=== PATIENT | male | born 1960 | race Caucasian/White ===

== ENCOUNTER → 2018-08-18 | Outpatient (CLI) | payer SELFPAY ==
[2018-05-02 06:34] VITALS: BMI 34.1
--- NOTE | 2018-08-18 06:58 | RAD_ITS ---
STUDY: X-RAY CHEST REASON FOR EXAM: Male, 57 years old. Follow-up after treatment for melanoma. TECHNIQUE: PA and lateral views of the chest. COMPARISON: CT of the chest dated February 03, 2015. FINDINGS: The lungs are clear and expanded. There is no demonstrated pleural abnormality. Normal size heart. Normal mediastinum and trinity. Normal visualized pulmonary arteries. Normal visualized aortic arch and descending thoracic aorta. Normal visualized thoracic spine. Normal visualized ribs, clavicles, and shoulders. There is no demonstrated abnormality of the visualized soft tissue structures of the upper abdomen. RAD/Chest PA and Lateral IMPRESSION: No radiographic evidence of acute cardiopulmonary disease. Electronically Signed: Sheila Polanco MD at 17:11 EDT , Service support ,
== END | disposition home or self-care (01) ==
PROVIDERS: Family Provider Family Medicine; PCP Family Medicine; Referring Provider Internal Medicine Medical Oncology; Visit Provider Internal Medicine Medical Oncology
DX: Z85.820 Personal history of malignant melanoma of skin (principal)
CPT/HCPCS: 71046

== ENCOUNTER → 2019-08-17 07:52 | Outpatient (CLI) | payer BC, SELFPAY ==
[2018-10-16 17:35] VITALS: BMI 33.2
--- NOTE | 2019-08-17 07:58 | RAD_ITS ---
STUDY: X-RAY CHEST REASON FOR EXAM: Male, 58 years old. 1 year followup melanoma TECHNIQUE: PA and lateral views of the chest. COMPARISON: Comparison is made with prior examination dated August 18, 2018. FINDINGS: The lungs are clear and expanded. There is no demonstrated pleural abnormality. Normal size heart. Normal mediastinum and trinity. Normal visualized pulmonary arteries. Normal visualized aortic arch and descending thoracic aorta. Normal visualized thoracic spine. Normal visualized ribs, clavicles, and shoulders. There is no demonstrated abnormality of the visualized soft tissue structures of the upper abdomen. RAD/Chest PA and Lateral IMPRESSION: Normal x-ray examination of the chest. Electronically Signed: Yeyo Koehler, at 8:39 EDT , Service support ,
[2019-08-17 08:49] LABS: Absolute Lymphocyte Count 2.13 X10^3/uL (0.83-4.51); Absolute Neutrophil Count 2.3 X10^3/uL (2.0-7.7); Basophil# 0.05 X10^3/uL; Eosinophil# 0.08 X10^3/uL; Eosinophils% 1.6 % (0-5); Hematocrit 45.4 % (40-54); Hemoglobin 14.5 g/dL (13.0-16.5); Lymphocyte # 2.13 X10^3/ul (4.0); Mean Corp Hgb Conc 31.9 g/dL (32-36); Mean Corpuscular Hgb 30.5 pg (27.0-32.0); Mean Corpuscular Volume 95.4 fL (80-94); Mean Platelet Vol. 9.5 fl (6.2-12.0); Monocyte# 0.51 X10^3/uL; Monocyte% 10.1 % (0-10); NRBC Flagged by Analyzer 0 % (0-5); Neutrophil # 2.29 X10^3/uL (2.7-7.7); Neutrophil % 45.1 % (47-70); Platelet Count 226 K/mm3 (150-450); RBC Distribution Width SD 42.6 fl (35.1-43.9); Red Blood Count 4.76 M/mm3 (4.6-6.2); White Blood Count 5.1 K/mm3 (4.4-11.0)
[2019-08-17 09:06] LABS: ALB/GLOB Ratio 1.1 RATIO (0.9-2.4); AST(SGOT) 26 U/L (15-37); Alanine Aminotransfer ALT/SGPT 46 U/L (16-61); Albumin, Serum 3.8 g/dL (3.2-5.0); Alkaline Phosphatase 87 U/L (45-117); Anion Gap 3 (5-15); BUN 20 mg/dL (7-18); BUN/Creat Ratio 17.5 RATIO (10-20); Calcium,Total 8.7 mg/dL (8.5-10.1); Chloride 110 mmol/L (98-107); Creatinine, Serum 1.14 mg/dL (0.70-1.30); EST Glomerular Filtration Rate 70 mL/min (>60); Est Glom Filt Rate - Afr Amer 85 mL/min (>60); Globulin 3.4 g/dL (2.2-4.2); Glucose 104 mg/dL (74-106); LDH 180 U/L (87-241); Potassium 4.4 mmol/L (3.5-5.1); Protein, Total 7.2 g/dL (6.4-8.2); Sodium Level 141 mmol/L (136-145)
[2019-08-17 16:00] LABS: Xtra Tube EP Lab EXTRA TUBE
== END ==
PROVIDERS: PCP Family Medicine; Referring Provider Internal Medicine Medical Oncology; Visit Provider Internal Medicine Medical Oncology
DX: Z85.820 Personal history of malignant melanoma of skin (principal)
CPT/HCPCS: 36415; 71046; 80053; 83615; 85025

== ENCOUNTER → 2020-08-17 09:00 | Outpatient (CLI) | payer BC, SELFPAY ==
[2020-08-17 08:16] VITALS: BMI 33.2
--- NOTE | 2020-08-17 09:08 | RAD_ITS ---
STUDY: X-RAY CHEST REASON FOR EXAM: Male, 59 years old. HX OF MELANOMA TECHNIQUE: PA and lateral views of the chest. COMPARISON: Comparison is made with prior study dated 08/17/2019. FINDINGS: There is a 8.3 mm nodular density in the left lung base. I think this is a nipple shadow. A repeat examination with nipple markers recommended. Hyperinflation. There is no demonstrated pleural abnormality. Normal size heart. Normal mediastinum and trinity. Normal visualized pulmonary arteries. Normal visualized aortic arch and descending thoracic aorta. Normal visualized thoracic spine. Normal visualized ribs, clavicles, and shoulders. There is no demonstrated abnormality of the visualized soft tissue structures of the upper abdomen. RAD/Chest PA and Lateral IMPRESSION: There is an 8.3 mm nodular density in the left lung base most likely representing a nipple shadow. A repeat examination with nipple markers recommended. Electronically Signed: Yeyo Koehler MD at 14:55 EDT , Service support ,
== END ==
PROVIDERS: PCP Family Medicine; Referring Provider Internal Medicine Medical Oncology; Visit Provider Internal Medicine Medical Oncology
DX: Z85.820 Personal history of malignant melanoma of skin (principal)
CPT/HCPCS: 71046

== ENCOUNTER → 2020-08-26 06:44 | Outpatient (CLI) | payer BC, SELFPAY ==
[2020-08-25 12:49] VITALS: BMI 32.0
--- NOTE | 2020-08-26 06:46 | CT_ITS ---
STUDY: CT CHEST WITH CONTRAST REASON FOR EXAM: Male, 59 years old. Hx Melanoma; CXR shows left lung nodule RADIATION DOSAGE (If Supplied By Facility): CTDIvol = ( 14.15 ) mGy, DLP = ( 558.04 ) mGycm TECHNIQUE: Transaxial imaging was performed following intravenous administration of IV 100mL Isovue-370. Multiplanar coronal and sagittal images were reformatted. Individualized dose optimization techniques were used for this CT. COMPARISON: Comparison is made with prior examination 02/03/2015. FINDINGS: There is a new noncalcified 1 cm nodule in the anterior lateral aspect of the lingular segment of the left upper lobe. There is no demonstrated pleural abnormality. There are calcifications of the coronary arteries. Normal mediastinum. Normal hilar regions. Normal enhanced pulmonary arteries. Normal aorta arch and descending thoracic aorta. There are mild degenerative changes of the thoracic spine. There is a 2.3 cm x 1.8 cm cyst in the anterior aspect of the left lobe of the liver. A similar-appearing cyst measuring 1 cm is seen in segment 4 of the liver. There is also evidence of a 2.2 cm cyst in the posterior medial aspect of the left kidney. CT/Chest WITH Contrast IMPRESSION: New 1 cm noncalcified nodule in the anterior lateral aspect of the lingular segment of the left upper lobe. Stable hepatic and renal cysts. Electronically Signed: Yeyo Koehler MD at 9:25 EDT , Service support ,
== END ==
PROVIDERS: PCP Family Medicine; Referring Provider Internal Medicine Medical Oncology; Visit Provider Internal Medicine Medical Oncology
DX: R93.89 Abnormal findings on diagnostic imaging of other specified body structures (principal); R91.1 Solitary pulmonary nodule; Z85.820 Personal history of malignant melanoma of skin
CPT/HCPCS: 71260; Q9967

== ENCOUNTER → 2020-12-05 17:11 | Outpatient (CLI) | payer BC, SELFPAY ==
[2020-09-08 15:42] VITALS: BMI 31.6
[2020-10-06 16:34] VITALS: BMI 31.6
--- NOTE | 2020-12-05 17:21 | CT_ITS ---
STUDY: CT CHEST WITH CONTRAST REASON FOR EXAM: Male, 60 years old. LUNG NODULE RADIATION DOSAGE (If Supplied By Facility): CTDIvol = ( 15.35 ) mGy, DLP = ( 479.61 ) mGycm TECHNIQUE: Transaxial imaging was performed following intravenous administration of IV 100mL Isovue-300. Individualized dose optimization techniques were used for this CT. COMPARISON: 09/06/2020 PET/CT FINDINGS: 1 cm anterior left upper lobe subpleural nodule. The lungs are otherwise normal. There is no demonstrated pleural abnormality. Normal heart and pericardium. Normal mediastinum. 1.1 cm short axis left hilar lymph node. Normal enhanced pulmonary arteries. Normal aorta arch and descending thoracic aorta. Thoracic vertebral alignment is maintained. There is no demonstrated abnormality of the visualized upper abdomen. CT/Chest WITH Contrast IMPRESSION: 1 cm left upper lobe subpleural nodule is unchanged compared to 09/06/2020 PET/CT. 1.1 cm left hilar lymph node is difficult compare in size to 09/06/[address], but probably corresponds to mildly avid focus in the left pulmonary hilum. Electronically Signed: Marbin Shaffer MD at 8:13 EDT Tel , Service support ,
== END ==
PROVIDERS: Referring Provider Internal Medicine Medical Oncology; Visit Provider Internal Medicine Medical Oncology
DX: R91.1 Solitary pulmonary nodule (principal); Z85.820 Personal history of malignant melanoma of skin
CPT/HCPCS: 71260; Q9967

== ENCOUNTER 2021-05-31 17:35 | Outpatient (CLI) | payer OTHER, SELFPAY ==
--- NOTE | 2021-05-31 17:36 | CT_ITS ---
EXAM: CT CHEST WITH INTRAVENOUS CONTRAST : 1960 CLINICAL INDICATION: MONITOR-LUNG NODULE TECHNIQUE: Helically acquired images were obtained of the chest with intravenous contrast. This CT exam was performed using one or more of the following dose reduction techniques: automated exposure control, adjustment of the mA and/or kV according to patient size, and/or use of iterative reconstruction technique. This report was created using [employer] report generation technology. CONTRAST: IV 100mL Isovue-370 COMPARISON: December 05, 2020 FINDINGS: LUNGS AND PLEURAL SPACES: Stable 10 mm left upper lobe pulmonary nodule. Mild diffuse pulmonary emphysema. No pleural effusion or thickening. No pneumothorax. HEART: Unremarkable. Heart size is normal. No pericardial effusion. No significant coronary artery calcifications. MEDIASTINUM: Stable 14 mm left hilar lymph node. Esophagus is unremarkable. No hiatal hernia. THYROID: Unremarkable. No thyroid lesions. BONES/JOINTS: Unremarkable. No suspicious lytic or blastic abnormality. VASCULATURE: Unremarkable. Thoracic aorta is non-dilated. No thoracic aortic dissection. No obvious central pulmonary embolism although this study was not performed with the pulmonary embolism protocol. LIVER: Stable cystic lesions within the liver and upper pole left kidney. CT/Chest WITH Contrast IMPRESSION: 1. Stable 10 mm left upper lobe pulmonary nodule. 2. Mild diffuse pulmonary emphysema. 3. Stable 14 mm left hilar lymph node. Individualized dose optimization techniques were used for this CT. at 1005 Reported and signed by: Sudhakar Altman MD Electronically Signed: Sudhakar Altman MD at 10:04 [facility] ,
== END 2021-05-31 23:59 | disposition home or self-care (01) ==
LOC: CT 17:36
PROVIDERS: Visit Provider Internal Medicine Medical Oncology
DX: R91.1 Solitary pulmonary nodule (principal); Z85.820 Personal history of malignant melanoma of skin
CPT/HCPCS: 71260; Q9967

== ENCOUNTER 2021-06-06 09:55 | Outpatient (CLI) | payer OTHER, SELFPAY ==
--- NOTE | 2021-06-06 12:47 | PFTCOMP ---
COMPLETE PULMONARY FUNCTION TEST INTERPRETATION Brief HPI: Patient is a 60 year old male, currently under the care of myself, who presents to [facility] for complete pulmonary function tests secondary to diagnosis of lung nodule. Respiratory therapist reports good effort and reproducible results. Interpretation: Forced expiration spirometry shows a mild large airways obstructive ventilatory defect with an FEV1 of 84% predicted. There is a significant bronchodilator response in FEV1 by strict ATS criteria. Spirograms are of good quality and plateau slowly, indicating slowly emptying areas of the lungs. The respiratory flow volume loop shows decreased expiratory flow rates at high lung volumes consistent with small airways obstruction. Lung volumes by body plethysmography show a normal total lung capacity at 6.13 L, 103% predicted. All other lung volumes are within normal limits. Diffusion capacity by carbon monoxide is normal at 75% predicted. The airway resistance is normal. No previous pulmonary function tests were available for review. Impression: Fully reversible mild large airways obstructive ventilatory defect
== END 2021-06-06 23:59 | disposition home or self-care (01) ==
PROVIDERS: Referring Provider Internal Medicine Critical Care Medicine; Visit Provider Internal Medicine Critical Care Medicine
DX: R91.1 Solitary pulmonary nodule (principal)
CPT/HCPCS: 94060; 94726; 94729

== ENCOUNTER → 2021-12-20 | Outpatient (CLI) | payer OTHER, SELFPAY ==
--- NOTE | 2021-12-20 11:52 | CT_ITS ---
STUDY: CT Chest W/ Contrast Injection 12/20/2021 6:10 PM REASON FOR EXAM: Male, 61 years old. LUNG NODULE/HX OF MELANOMA Individualized dose optimization techniques were used for this CT. Radiation: CTDIvol = [13.70] mGy, DLP = [575.74] mGy-cm TECHNIQUE: Transaxial imaging was performed IV 100mL Isovue-300 IV contrast material. Comparison: May 31 2021 5:43pm FINDINGS: There are degenerative changes of the shoulders. There is no pneumothorax. There is no demonstrated pleural abnormality. 8mm nodule of the left upper lobe. This has a central area of calcification and peripheral soft tissue. This is consistent for hamartoma. No follow up required. There are calcifications of the coronary arteries. Normal mediastinum. Stable 14 mm left hilar lymph node. Normal pulmonary arteries. There is atherosclerotic calcification of the aortic arch with tortuosity and elongation of the aortic arch and descending thoracic aorta. There are multi-level degenerative changes of the thoracic spine. Stable hypodensities of the liver. There is hypodensities of the left kidney. These are consistent for cysts. No follow up required. CT/Chest WITH Contrast IMPRESSION: 8mm nodule of the left upper lobe. This has a central area of calcification and peripheral soft tissue. This is consistent for hamartoma. No follow up required. Electronically Signed: Mario Alberto Solitario MD at 18:13 EDT ,
== END | disposition home or self-care (01) ==
LOC: CT 17:43
PROVIDERS: Visit Provider Internal Medicine Medical Oncology
DX: R91.1 Solitary pulmonary nodule (principal); Z85.820 Personal history of malignant melanoma of skin
CPT/HCPCS: 71260; Q9967

== ENCOUNTER → 2022-06-26 | Outpatient (CLI) | payer OTHER, SELFPAY ==
[2022-06-26 07:42] LABS: Cholesterol 248 mg/dL (200); High Density Lipoprotein 48 mg/dL; Thyroid Stim Hormone (TSH) 2.77 uIU/mL (0.358-3.74); Triglycerides 88 mg/dL; Very Low Density Lipoprotein 18 mg/dL (5-40)
[2022-06-26 08:48] LABS: Vitamin D,25 Hydroxy 19.3 ng/mL
--- NOTE | 2022-06-26 09:24 | STRESSREP ---
Stress Test Report Date: Procedure: Exercise tolerance test/imaging study Indications: Chest pain/chest tightness Consent: Per the patient Procedure: The patient exercised on a Mitchell protocol for 8 minutes and 30 seconds completing Stage II and 2 minutes and 30 seconds of Stage III achieving a peak heart rate of 153 bpm (95% predicted maximal heart rate) with resting blood pressure of 120/82 mmHg and a peak blood pressure 180/82 mmHg and a peak MET capacity of 10 METs. The baseline ECG demonstrated sinus bradycardia. The peak exercise ECG demonstrated somatic/motion artifact with no obvious ECG changes. There were no cardiac dysrhythmias pretest, during exercise, or recovery. The functional capacity was considered good. There was no complaint of chest discomfort during exercise or recovery. The examination was discontinued secondary to dyspnea and leg fatigue. Impression: 1. Technically adequate (percent predicted maximal heart rate greater than 85%) exercise tolerance test 2. Peak exercise ECG with somatic/motion artifact with no obvious ECG changes 3. There were no cardiac dysrhythmias pretest, during exercise, or recovery 4. Nuclear images pending Myocardial perfusion imaging study: Technique: The patient was injected with 11.6 mCi of technetium 99m Cardiolite and subsequently rest SPECT Cardiolite nuclear imaging was obtained in the horizontal long, vertical long, and short axis views. The patient exercised on a Mitchell protocol for 8 minutes and 30 seconds completing Stage II and 2 minutes and 30 seconds of Stage III achieving a peak heart rate of 153 bpm (95% predicted maximal heart rate) with resting blood pressure of 120/82 mmHg and a peak blood pressure 180/82 mmHg and a peak MET capacity of 10 METs. The patient was injected with 36.0 mCi of technetium 99m Cardiolite and subsequently stress SPECT Cardiolite nuclear imaging was obtained in the horizontal long, vertical long, and short axis views. A gated Cardiolite study at peak stress was obtained. Interpretation: Rest and stress SPECT Cardiolite nuclear imaging status post realignment, normalization, and attenuation correction, demonstrates the appearance of relative uniform tracer uptake and myocardial perfusion appearing within normal limits. There is end systolic thickening and brightening. The gated Cardiolite study demonstrates myocardial thickening and inward wall motion. The reported LVEF is 66%. Impression: 1. Rest and stress SPECT Cardiolite nuclear imaging demonstrate relative uniform tracer uptake and myocardial perfusion appearing within normal limits. 2. The gated Cardiolite study reports an LVEF of 66%. This note was generated with [employer] software. It may contain incorrect words, spelling, and punctuation that were not noted in checking the note before signing.
== END | disposition home or self-care (01) ==
PROVIDERS: PCP Internal Medicine; Referring Provider Internal Medicine; Visit Provider Internal Medicine
DX: I10 Essential (primary) hypertension (principal); J45.909 Unspecified asthma, uncomplicated; R07.89 Other chest pain; Z72.0 Tobacco use; Z87.19 Personal history of other diseases of the digestive system
CPT/HCPCS: 36415; 78452; 80061; 82306; 84153; 84443; 93017; A9500; A4216; G0103

== ENCOUNTER → 2022-10-24 | Outpatient (CLI) | payer OTHER, SELFPAY ==
--- NOTE | 2022-10-24 11:12 | VDLE_ITS ---
Reason For Study: Swelling RIGHT LEFT GSV is normal. GSV is normal. CFV is compressible, spontaneous, phasic, CFV is compressible, spontaneous, phasic, competent and demonstrates normal competent, and demonstrates normal augmentation. augmentation. FV is compressible, spontaneous, phasic, FV is compressible, spontaneous, phasic, competent and demonstrates normal competent and demonstrates normal augmentation. augmentation. POP V is compressible, spontaneous, phasic, POP V is compressible, spontaneous, phasic, competent and demonstrates normal competent and demonstrates normal augmentation. augmentation. T/P Trunk is compressible. T/P Trunk is compressible. PTV is compressible. PTV is compressible. RT PerV is compressible. LT PerV is compressible. Procedure This is a venous duplex using B-mode, color flow and spectral Doppler. Exam performed in department. A preliminary report was called and/or faxed to Dr. Hogan. VL/Venous Duplex US - [place] Extrem Interpretation Summary No evidence for acute deep venous thrombosis bilateral lower extremities with p atent and compressible bilateral great saphenous veins. Ordering Physician: Jesus Hogan Referring Physician: Amena Friedman Performed By: Pamela Bowles, CASANDRA, RVT
== END | disposition home or self-care (01) ==
LOC: CVS 11:12
PROVIDERS: PCP Internal Medicine; Referring Provider Internal Medicine Medical Oncology; Visit Provider Internal Medicine Medical Oncology
DX: M79.89 Other specified soft tissue disorders (principal)
CPT/HCPCS: 93970

== ENCOUNTER → 2024-01-10 | Outpatient (CLI) | payer OTHER, SELFPAY ==
--- NOTE | 2024-01-10 17:36 | CT_ITS ---
HISTORY: smoker. TECHNIQUE: Helically acquired images were obtained of the chest without contrast. A radiation dose optimization technique was used for this scan. 848 images. COMPARISON: 12/20/2021. 09/06/2020. FINDINGS: LARGE AIRWAYS: Patent. LUNGS: Mild emphysema. 10 mm part groundglass nodule with a new 4 mm solid component in the left apex, previously 7 mm and nonsolid. 3 mm left upper lobe nodule medially, stable. 8 mm nodule with central calcification again seen in the left upper lobe, likely hamartoma. PLEURA: No pneumothorax or significant pleural effusion. HEART/PERICARDIUM: Heart within normal limits in size with coronary artery calcification. No pericardial effusion. VESSELS: Thoracic aorta nondilated. Mild atherosclerosis. MEDIASTINUM/GUY: Left hilar lymphadenopathy less well-visualized on noncontrast examination. UPPER ABDOMEN: Small hepatic cysts again seen. BONES: Mild degenerative change. CT/Low Dose CT Lung Screening IMPRESSION: Mildly increased size of left upper lobe 10 mm part solid nodule with a new 4 mm solid component. Lung-RADS category 4B: Very suspicious. Recommend diagnostic chest CT with and without contrast, PET/CT may be considered, tissue sampling, and/or referral for further clinical evaluation. Electronically Signed: Allyssa Zohu MD at 9:07 EDT Reading Location ID and State: [facility] / [place] Tel , Service support ,
== END | disposition home or self-care (01) ==
LOC: CT 17:34
PROVIDERS: PCP Internal Medicine; Referring Provider Nurse Practitioner Acute Care; Visit Provider Nurse Practitioner Acute Care
DX: R91.8 Other nonspecific abnormal finding of lung field (principal); F17.200 Nicotine dependence, unspecified, uncomplicated
CPT/HCPCS: 71271

== ENCOUNTER → 2024-02-04 | Outpatient (CLI) | payer OTHER, SELFPAY ==
--- NOTE | 2024-02-04 08:00 | PET_ITS ---
EXAMINATION: FDG PET-CT INDICATIONS: A 63-year-old male with a history of pulmonary nodularity. COMPARISON EXAMINATION: Prior FDG PET CT study dated 09/06/20, low dose CT lung screening 01/10/24. TECHNIQUE: Following the intravenous administration of 13.1 mCi of F-18 deoxyglucose via the right antecubital fossa, multiplanar image acquisitions of the head, neck, chest, abdomen and pelvis to level of mid-thigh, lower extremities obtained at one hour post radiopharmaceutical administration contemporaneously interpreted with the current CT of the head, neck, chest, abdomen and pelvis to level of mid-thigh, lower extremities dated 02/04/24 via coregistration reveal and prior FDG PET CT study dated 09/06/[address] lung screening 01/10/24: SERUM GLUCOSE LEVEL: 125 mg/dl. HEIGHT: 67inches. WEIGHT: 212 lbs. FINDINGS: Head/Neck: There is no evidence of abnormal increased glucose metabolism in the pharyngeal mucosal space, parapharyngeal space, bilateral-lateral and anterior neck, hypopharynx and distribution of the laryngeal structures. The visualized portion of the cerebral cortical-subcortical structures demonstrate symmetric and preserved glucose metabolism. CHEST: There is no quantitative scintigraphic evidence of abnormal increased glucose metabolism within the context of the bilateral hemithorax pulmonary parenchyma, right and left hemithoracic pleural interface, mediastinal structures and thoracic perihilum.? Prominent radiopharmaceutical concentration is identified in the left ventricular myocardium commensurate with the [place]. Pertinent chest CT findings are as follows. Parenchymal densities defined in the left hemithorax are nonglucose avid. A small hiatal hernia is defined. There is atherosclerotic calcification defined in the thoracic aorta without evidence of dilatation-aneurysm formation. Coronary arterial calcification is observed. Mediastinal and bilateral axillary soft tissue densities are nontracer avid. Abdomen/Pelvis: Normal physiologic distribution of the radiopharmaceutical is apparent in the hepatic and splenic parenchyma, both renal units, bladder and visualized intestinal tract. Diffuse radiopharmaceutical concentration is noted in all four quadrants of the abdomen and pelvis. The abdomen and pelvis CT findings are as follows. Cyst formation is defined in the left lobe hepatic parenchyma. There is atherosclerotic calcification defined in the abdominal aorta without evidence of dilatation-aneurysm formation. Pelvic arterial calcification is observed. A cyst is identified in the left renal unit. Calcified phlebolith is noted in the bilateral lower hemipelvis. Right and left fat containing inguinal hernias are demonstrated. Occasional colonic diverticula are demonstrated without evidence of diverticulitis. Skeletal: Degenerative changes are noted in the cervical, thoracic and lumbar spine. PET/PET/CT Tumor Base -Thigh Init IMPRESSION: 1. NEGATIVE EXAMINATION. There is no definitive quantitative scintigraphic evidence of viable neoplasm. 2. Metabolic anatomic stability may be ensured in the left hemithorax parenchymal densities with repeat CT of the thorax and/or FDG PET imaging in 3-6 months if clinically indicated. Electronic Signature Rico Fritz D.O. Accurate Quantification of SUVs for this report are calculated using the exclusive [employer], ([place]. Patent No. [phone] [phone] [place] patent [phone] ). Standardization and correction of the FDG SUV metric exclusively available with [employer] intellectual property, allow for vendor non-specific objective quantitative sequential FDG PET-CT comparison and otherwise unobtainable optimization of the sensitivity and specificity of the examination. [email or web address] Electronically Signed: Rico Fritz DO at 22:06 EDT ,
== END | disposition home or self-care (01) ==
LOC: ONC 07:52
PROVIDERS: PCP Internal Medicine; Referring Provider Nurse Practitioner Acute Care; Visit Provider Nurse Practitioner Acute Care
DX: R91.8 Other nonspecific abnormal finding of lung field (principal); R91.1 Solitary pulmonary nodule
CPT/HCPCS: 78815; A9552

== ENCOUNTER → 2025-02-02 | Outpatient (CLI) | payer OTHER, SELFPAY ==
--- NOTE | 2025-02-02 15:31 | RAD_ITS ---
PROCEDURE: CHEST PA AND LATERAL 02/02/2025 REASON FOR EXAM: HISTORY OF MALIGNANT MELANOMA TECHNIQUE: Procedure Code: RADCXR Modality: DX Procedure: CHEST PA AND LATERAL COMPARISON: None FINDINGS: Question 10 x 7 mm left lower thoracic opacity which may reflect a pulmonary nodule. No focal consolidation. No pleural effusion or pneumothorax. Cardiac silhouette is within normal limits. No acute fractures. RAD/Chest PA and Lateral IMPRESSION: No focal consolidations. Question 10 x 7 mm left lower thoracic opacity which may reflect a pulmonary no dule. Reading Location: [id number]
[2025-02-02 15:39] LABS: Hematocrit 40.2 % (40-54); Hemoglobin 13.8 g/dL (13.0-16.5); Immature Granulocytes Count 0.030 X10^3/uL (0.0-0.0); Mean Corp Hgb Conc 34.3 g/dL (32-36); Mean Corpuscular Volume 89.5 fL (80-94); Mean Platelet Vol. 9.3 fl (6.2-12.0); NRBC Flagged by Analyzer 0 % (0-5); Platelet Count 246 K/mm3 (150-450); RBC Distribution Width CV 12.7 % (11.6-14.6); RBC Distribution Width SD 41.6 fl (35.1-43.9); Red Blood Count 4.49 M/mm3 (4.6-6.2); White Blood Count 5.1 K/mm3 (4.4-11.0)
[2025-02-02 16:03] LABS: AST(SGOT) 31 U/L (<=37); Alanine Aminotransfer ALT/SGPT 48 U/L (<=46); Albumin, Serum 4.4 g/dL (3.4-4.8); Alkaline Phosphatase 62 U/L (40-129); Anion Gap 11 (5-15); BUN 13 mg/dL (4-19); BUN/Creat Ratio 13.1 RATIO (10-20); Calcium,Total 9.1 mg/dL (7.6-11.0); Carbon Dioxide 22.9 mmol/L (21.0-32.0); Chloride 100 mmol/L (98-108); Globulin 2.4 g/dL (2.2-4.2); Glucose 92 mg/dL (70-99); LDH 214 U/L (87-241); Potassium 4.0 mmol/L (3.3-5.1)
== END | disposition home or self-care (01) ==
LOC: RAD 15:20
PROVIDERS: PCP Internal Medicine; Referring Provider Internal Medicine Medical Oncology; Visit Provider Internal Medicine Medical Oncology
DX: Z85.820 Personal history of malignant melanoma of skin (principal)
CPT/HCPCS: 36415; 71046; 80053; 83615; 85025

== ENCOUNTER → 2025-03-02 | Outpatient (CLI) | payer OTHER, SELFPAY ==
--- NOTE | 2025-03-02 18:08 | CT_ITS ---
PROCEDURE: LOW DOSE CT LUNG SCREENING 03/02/2025 REASON FOR EXAM: SMOKER QUIT 2019 TECHNIQUE: Procedure Code: [id number] Modality: CT Procedure: LOW DOSE CT LUNG SCREENING Coronal and Sagittal reconstruction series were provided. One or more dose reduction techniques were used (e.g., Automated exposure control, adjustment of the mA and/or kV according to patient size, use of iterative reconstruction technique). REFERENCE LINK: [email or web address] Lung-RADS RADIATION DOSE SUMMARY: CTDlvol: 2.01 mGy DLP: 69 mGycm COMPARISON: PET-CT on 02/04/2024. CT on 01/10/2024. FINDINGS: Unchanged emphysema. Unchanged 10 mm partly ground-glass nodule with 4 mm solid component in the left lung apex. Unchanged 3 mm left upper lobe medial pulmonary nodule. Unchanged 8 mm nodule with central calcification in the left upper lobe, probably hamartoma. Unchanged coronary artery calcifications. Unchanged scattered small hepatic cysts. Unchanged diffuse spondylosis. PULMONARY NODULES: (Only nodules >3mm are reported) Nodules described below are on series 2 unless otherwise specified. Unchanged small sliding hiatal hernia. Normal unenhanced main pulmonary artery and right and left pulmonary arteries. Normal bilateral peripheral pulmonary arteries. Mild atheromatous plaques of the thoracic aorta and visualized great vessels. There is no demonstrated aortic aneurysm. Normal heart and pericardium. Normal mediastinum. Normal hilar regions. Normal visualized trachea and bronchi. Normal pleura. CT/Low Dose CT Lung Screening IMPRESSION: Unchanged emphysema. Unchanged 10 mm partly ground-glass nodule with 4 mm solid component in the lef t lung apex. Unchanged 3 mm left upper lobe medial pulmonary nodule. Unchanged 8 mm nodule with central calcification in the left upper lobe, probab ly hamartoma. Unchanged coronary artery calcifications. Unchanged scattered small hepatic cysts. Unchanged diffuse spondylosis. PULMONARY NODULES: (Only nodules >3mm are reported) Nodules described below are on series 2 unless otherwise specified. Unchanged small sliding hiatal hernia. Coronary artery calcification (CAC) is is present Lung-RADS Category: 2 BENIGN (BASED ON IMAGING FEATURES OR INDOLENT BEHAVIOR). RECOMMEND 12-MONTH SCREENING LDCT. Reading Location[facility] [id number]
--- OUTSIDE RECORDS SUMMARY | 2025-03-02 18:09 | XMS RPT_ITS | CCD ---
Author Organization [facility] Care Team Providers Care Horse Trekking Guide Name Role Phone Indy Man DC Unavailable Enriqueta Campbell Unavailable Unavailable Enriqueta Campbell Unavailable Unavailable Care Physician, No Primary Primary Care Provider Unavailable Rj INTERNAL CONTROL ANALYST, INTERNAL CONTROL ANALYST-C Jigna Attending Provider [phone] Rj INTERNAL CONTROL ANALYST, INTERNAL CONTROL ANALYST-C Jigna Referring Provider [phone] Care Physician, No Primary Referring Provider Un available Dr. Jesus Hogan Attending Provider Care Physician, No Primary Primary Care Provider Unavailable Dr. Amena Friedman Attending Provider Dr. Amena Friedman Primary Care Provider Dr. Amena Friedman Referring Provider DAX Hanks Attending Provider DAX Mares Attending Provider Dr. Amena Friedman Other Provider Dr. Marbin Mike Attending Provider [phone] Care Physician, No Primary Referring Provider Un available Rj ACOSTA, DAVE-C Jigna Attending Provider [phone] Dr. Amena Friedman Primary Care Provider Dr. Amena Friedman Referring Provider [phone] Dr. Indy Man Attending Provider Dr. Jesus Hogan Attending Provider Dr. Lawson Navarro Attending Provider Dr. Amena Friedman MD Primary Care Provider [phone] Dr. Amena Friedman MD Referring Provider Dossi DC, Dr. Putnam Attending Provider [phone] Idalia CHARLES, Dr. Beckwith Primary Care Provider Idalia CHARLES, Dr. Beckwith Referring Provider Dossi DC, Dr. Putnam Attending Provider [phone] Idalia CHARLES, Dr. Beckwith Primary Care Provider Idalia CHARLES, Dr. Beckwith Referring Provider Dossi DC, Dr. Putnam Attending Provider [phone] Idalia, Amena Primary Care Unavailable Idalia, Amena Referring Unavailable Dossi, Indy Attending Unavailable Idalia, Amena Primary Care Unavailable Idalia, Amena Referring Unavailable Dossi, Indy Attending Unavailable Idalia, Amena Primary Care Unavailable Idalia, Amena Referring Unavailable Dossi, Indy Attending Unavailable Idalia, Amena Primary Care Unavailable Rj INTERNAL CONTROL ANALYST, Jigna Attending Unavailable Rj INTERNAL CONTROL ANALYST, Jigna Referring Unavailable Prah, Jesus Referring Unavailable Prah, Jesus Attending Unavailable Idalia, Amena Primary Care Unavailable Idalia, Amena Referring Unavailable Idalia, Amena Primary Care Unavailable Dossi, Indy Attending Unavailable Idalia, Amena Primary Care Unavailable Idalia, Amena Referring Unavailable Dossi, Indy Attending Unavailable Idalia, Amena Referring Unavailable Idalia, Amena Primary Care Unavailable Dossi, Indy Attending Unavailable Idalia, Amena Referring Unavailable Idalia, Amena Primary Care Unavailable Dossi, Indy Attending Unavailable Idalia, Amena Referring Unavailable Idalia, Amena Primary Care Unavailable Dossi, Indy Attending Unavailable Idalia, Amena Primary Care Unavailable Idalia, Amena Referring Unavailable Joseph Riddle Attending Unavailable Idalia, Amena Referring Unavailable Dossi, Indy Attending Unavailable Idalia, Amena Primary Care Unavailable Idalia, Amena Referring Unavailable Dossi, Indy Attending Unavailable Idalia, Amena Primary Care Unavailable Idalia, Amena Primary Care Unavailable Idalia, Amena Referring Unavailable Prah, Jesus Attending Unavailable Idalia, Amena Primary Care Unavailable Idalia, Amena Referring Unavailable Dossi, Indy Attending Unavailable Idalia, Amena Primary Care Unavailable Amena Friedman Referring Unavailable Indy Man Attending Unavailable Idalia CHARLES, Dr. Beckwith Primary Care Physician [phone] Idalia CHARLES, Dr. Beckwith Referring Provider Dr. Indy Man DC Attending Physician Dr. Jesus Hogan MD Attending Physician Samira CHARLES, Dr. Lee Referring Provider Medications Current Medications Medication Drug Class(es) Dates Sig (Normalized) Sig (Original) acetaminophen 325 mg oral tablet (17 sources) Start: 07-19-2016 take 1 tablet by jeffrey th three times daily as needed TYLENOL 8 HOUR 650 MG CR-TABS One tablet by mouth three times daily as needed ACETAMINOPHEN [id number] Patt Tee LPN Albuterol-Budesonide (2 sources) Start: 01-01-2025 Start: 12-17-2023 End: 01-01-2025 Albuterol-Budesonide (Airsup ra) 90-80 mcg/actuation HFA aerosol inhaler Discontinued 2 NMA INHALATION THREE TIMES A DAY as needed for shortness of breath 10.7 11 December 16, 2023 11:00pm January 01, 2025 1:40pm Skin nodule Localized swelling, mass and lump, unspecified as a single dose; may repeat up to 6 doses per day (12 inhalations) Albuterol-Budesonide (Airsup ra) 90-80 mcg/actuation HFA aerosol inhaler (7 sources) Start: 12-17-2023 Albuterol-Frisco sonide (Airsupra) 90-80 mcg/actuation HFA aerosol inhaler Active 2 NMA INHALATION THREE TIMES A DAY as needed for shortness of breath 10.7 11 December 17, 2023 12:00am Skin nodule Localized swelling, mass and lump, unspecified as a single dose; may repeat up to 6 doses per day (12 inhalations) Start: 12-17-2023 Albuterol-Frisco sonide (Airsupra) 90-80 mcg/actuation HFA aerosol inhaler Active 2 NMA INHALATION THREE TIMES A DAY as needed for shortness of breath 10.7 December 17, 2023 12:00am as a single dose; may repeat up to 6 doses per day (12 inhalations) cholecalciferol 0.025 mg oral capsule (10 sources) Vitamin D Start: 06-27-2022 take 1 capsule by mouth once daily ibuprofen 400 mg oral tablet (11 sources) Nonsteroidal Anti-inflammatory Drug Start: 01-28-2017 lisinopril 20 mg oral tablet (20 sources) Angiotensin Converting Enzyme Inhibitor Start: 03-21-2022 End: 02-09-2025 take 1 tablet by mouth once daily as needed for hypertension omeprazole 40 mg delayed release oral capsule (9 sources) Proton Pump Inhibitor Start: 09-05-2022 take 1 capsule by mouth once daily spacer (8 sources) Start: 03-29-2023 spacer Active 0 .ROUTE .MEDSUPPLY 1 0 March 29, 2023 12:00am As directed Start: 03-29-2023 spacer Active 0 .ROUTE .MEDSUPPLY 1 0 March 29, 2023 1:00am As directed Start: 03-29-2023 spacer Active 0 .ROUTE .MEDSUPPLY 1 March 29, 2023 1:00am As directed Completed/Discontinued Medications Medication Drug Class(es) Dates Sig (Normalized) Sig (Original) azithromycin 250 mg oral tablet (17 sources) Macrolide Antimicrobial Start: 04-23-2024 End: 02-09-2025 take 2-5 tablets by mouth once daily Azithromycin 250 mg tablet Discontinued 0 PO .COMPLEX 6 0 January 01, 2025 1:39pm February 09, 2025 3:00pm take 500 mg today (day 1), then 250 mg for 4 days (days 2-5) PO Start: 12-30-2023 End: 01-21-2024 take 2-5 tablets by mouth once daily Azithromycin 250 mg tablet Discontinued 0 PO .COMPLEX 6 0 December 29, 2023 11:00pm January 21, 2024 11:44am take 500 mg today (day 1), then 250 mg for 4 days (days 2-5) PO Astxbjicrs-Jzxafvly-Jrlizqbf ol (8 sources) Corticosteroid, beta2-Adrenergic Agonist Start: 03-29-2023 End: 12-17-2023 Ogeeihehnn-Ctzcimsw-Bwntsskg ol (Breztri Aerosphere) 160-9-4.8 mcg/actuation HFA aerosol inhaler Discontinued 2 NMA INHALATION TWICE A DAY 10.7 6 March 29, 2023 12:00am December 17, 2023 1:57pm Start: 03-29-2023 End: 12-17-2023 Kthbyjqjbu-Ccewmlmx-Mknamsoa ol (Breztri Aerosphere) 160-9-4.8 mcg/actuation HFA aerosol inhaler Discontinued 2 NMA INHALATION TWICE A DAY 10.7 6 March 29, 2023 1:00am December 17, 2023 2:57pm Start: 03-29-2023 End: 12-17-2023 Npfyjbldba-Ltyztixa-Fdkdwxtg ol (Breztri Aerosphere) 160-9-4.8 mcg/actuation HFA aerosol inhaler Discontinued 2 NMA INHALATION TWICE A DAY 10.7 March 29, 2023 1:00am December 17, 2023 2:57pm Fluticasone Propion-Salmeterol (8 sources) Corticosteroid, beta2-Adrenergic Agonist Start: 10-31-2022 End: 03-29-2023 Fluticasone Propion-Salmeterol (Advair Hfa) 230-21 mcg/actuation HFA aerosol inhaler Discontinued 2 NMA INHALATION TWICE A DAY 3 3 October 30, 2022 11:00pm March 29, 2023 1:05pm Start: 10-31-2022 End: 03-29-2023 Fluticasone Propion-Salmeter ol (Advair Hfa) 230-21 mcg/actuation HFA aerosol inhaler Discontinued 2 NMA INHALATION TWICE A DAY 3 3 October 31, 2022 12:00am March 29, 2023 2:05pm Start: 10-31-2022 End: 03-29-2023 Fluticasone Propion-Salmeter ol (Advair Hfa) 230-21 mcg/actuation HFA aerosol inhaler Discontinued 2 NMA INHALATION TWICE A DAY 3 October 31, 2022 12:00am March 29, 2023 2:05pm 30 actuat fluticasone furoate 0.1 mg/actuat / vilanterol 0.025 mg/actuat dry powder inhaler (11 sources) Corticosteroid, beta2-Adrenergic Agonist Start: 07-10-2021 End: 07-31-2021 Fluticasone Furoate-Vilanterol (Breo Ellipta) 100-25 mcg/dose blister with device Discontinued 1 NMA INHALATION Q24H 60 3 July 09, 2021 11:00pm July 31, 2021 12:51pm Shortness of breath after inhalation, rinse mouth with water and spit out; do not swallow Start: 07-10-2021 End: 07-31-2021 Fluticasone Furoate-Vilanter ol (Breo Ellipta) 100-25 mcg/dose blister with device Discontinued 1 INH INHALATION Q24H 60 July 10, 2021 12:00am July 31, 2021 1:51pm after inhalation, rinse mouth with water and spit out; do not swallow Fluticasone Propion-Salmeter ol (20 sources) Start: 10-01-2022 End: 10-31-2022 Fluticasone Propion-Salmeter ol (Airduo Digihaler) 232-14 mcg/actuation aero powdr breath act w/sensor Discontinued 1 NMA INHALATION TWICE A DAY 1 October 01, 2022 6:53am October 31, 2022 10:26am Start: 10-01-2022 End: 10-31-2022 Fluticasone Propion-Salmeter ol (Airduo Digihaler) 232-14 mcg/actuation aero powdr breath act w/sensor Discontinued 1 NMA INHALATION TWICE A DAY 1 October 01, 2022 7:53am October 31, 2022 11:26am Start: 10-01-2022 End: 10-31-2022 Fluticasone Propion-Salmeter ol (Airduo Digihaler) 232-14 mcg/actuation aero powdr breath act w/sensor Discontinued 1 NMA INHALATION TWICE A DAY October 01, 2022 7:53am October 31, 2022 11:26am Start: 10-01-2022 Fluticasone Pr opion-Salmeterol (Airduo Digihaler) 232-14 mcg/actuation aero powdr breath act w/sensor Active 1 INH INHALATION TWICE A DAY October 01, 2022 7:53am Start: 05-30-2022 End: 10-01-2022 Fluticasone Propion-Salmeter ol (Airduo Digihaler) 232-14 mcg/actuation aero powdr breath act w/sensor Discontinued 1 NMA INHALATION TWICE A DAY 1 May 30, 2022 3:44pm October 01, 2022 6:53am Start: 05-30-2022 End: 10-01-2022 Fluticasone Propion-Salmeter ol (Airduo Digihaler) 232-14 mcg/actuation aero powdr breath act w/sensor Discontinued 1 NMA INHALATION TWICE A DAY 1 May 30, 2022 4:44pm October 01, 2022 7:53am Start: 05-30-2022 End: 10-01-2022 Fluticasone Propion-Salmeter ol (Airduo Digihaler) 232-14 mcg/actuation aero powdr breath act w/sensor Discontinued 1 NMA INHALATION TWICE A DAY May 30, 2022 4:44pm October 01, 2022 7:53am Start: 05-30-2022 End: 10-01-2022 Fluticasone Propion-Salmeter ol (Airduo Digihaler) 232-14 mcg/actuation aero powdr breath act w/sensor Discontinued 1 INH INHALATION TWICE A DAY May 30, 2022 4:44pm October 01, 2022 7:53am Start: 05-30-2022 Fluticasone Pr opion-Salmeterol (Airduo Digihaler) 232-14 mcg/actuation aero powdr breath act w/sensor Active 1 INH INHALATION TWICE A DAY May 30, 2022 4:44pm Start: 02-20-2022 End: 05-30-2022 Fluticasone Propion-Salmeter ol (Airduo Digihaler) 232-14 mcg/actuation aero powdr breath act w/sensor Discontinued 1 NMA INHALATION TWICE A DAY 1 February 20, 2022 6:56am May 30, 2022 3:47pm Start: 02-20-2022 End: 05-30-2022 Fluticasone Propion-Salmeter ol (Airduo Digihaler) 232-14 mcg/actuation aero powdr breath act w/sensor Discontinued 1 NMA INHALATION TWICE A DAY 1 February 20, 2022 7:56am May 30, 2022 4:47pm Start: 02-20-2022 End: 05-30-2022 Fluticasone Propion-Salmeter ol (Airduo Digihaler) 232-14 mcg/actuation aero powdr breath act w/sensor Discontinued 1 NMA INHALATION TWICE A DAY February 20, 2022 7:56am May 30, 2022 4:47pm Start: 02-20-2022 End: 05-30-2022 Fluticasone Propion-Salmeter ol (Airduo Digihaler) 232-14 mcg/actuation aero powdr breath act w/sensor Discontinued 1 INH INHALATION TWICE A DAY February 20, 2022 7:56am May 30, 2022 4:47pm Start: 2021 End: 02-20-2022 Fluticasone Propion-Salmeter ol (Airduo Digihaler) 232-14 mcg/actuation aero powdr breath act w/sensor Discontinued 1 NMA INHALATION TWICE A DAY 1 2021 8:07am February 20, 2022 6:57am Start: 2021 End: 02-20-2022 Fluticasone Propion-Salmeter ol (Airduo Digihaler) 232-14 mcg/actuation aero powdr breath act w/sensor Discontinued 1 NMA INHALATION TWICE A DAY 1 2021 9:07am February 20, 2022 7:57am Start: 2021 End: 02-20-2022 Fluticasone Propion-Salmeter ol (Airduo Digihaler) 232-14 mcg/actuation aero powdr breath act w/sensor Discontinued 1 NMA INHALATION TWICE A DAY 2021 9:07am February 20, 2022 7:57am Start: 2021 End: 02-20-2022 Fluticasone Propion-Salmeter ol (Airduo Digihaler) 232-14 mcg/actuation aero powdr breath act w/sensor Discontinued 1 INH INHALATION TWICE A DAY 2021 9:07am February 20, 2022 7:57am Start: 2021 Fluticasone Pr opion-Salmeterol (Airduo Digihaler) 232-14 mcg/actuation aero powdr breath act w/sensor Active 1 INH INHALATION TWICE A DAY 1 2021 9:07am Start: 07-31-2021 End: 2021 Fluticasone Propion-Salmeter ol (Airduo Digihaler) 232-14 mcg/actuation aero powdr breath act w/sensor Discontinued 1 NMA INHALATION TWICE A DAY 1 July 30, 2021 11:00pm 2021 8:08am Start: 07-31-2021 End: 2021 Fluticasone Propion-Salmeter ol (Airduo Digihaler) 232-14 mcg/actuation aero powdr breath act w/sensor Discontinued 1 NMA INHALATION TWICE A DAY 1 July 31, 2021 12:00am 2021 9:08am Start: 07-31-2021 End: 2021 Fluticasone Propion-Salmeter ol (Airduo Digihaler) 232-14 mcg/actuation aero powdr breath act w/sensor Discontinued 1 NMA INHALATION TWICE A DAY 1 July 31, 2021 12:00am 2021 9:08am Start: 07-31-2021 End: 2021 Fluticasone Propion-Salmeter ol (Airduo Digihaler) 232-14 mcg/actuation aero powdr breath act w/sensor Discontinued 1 INH INHALATION TWICE A DAY July 31, 2021 12:00am 2021 9:08am nystatin 455145 unt/ml oral suspension (8 sources) Polyene Antifungal Start: 03-29-2023 End: 08-19-2023 Nystatin 100,000 unit/mL suspension Discontinued 5 mL MUCOUS MEM THREE TIMES A DAY 250 1 March 29, 2023 12:00am August 19, 2023 3:36pm swish and swallow 5 cc three times per day for 10 days predniSONE 10 mg oral tablet (20 sources) Start: 04-23-2024 End: 02-09-2025 Prednisone 10 mg tablet Discontinued 10 mg PO daily 30 0 January 01, 2025 1:40pm February 09, 2025 3:01pm take 4 tabs for three days, then 3 tabs for three days, then 2 tabs for three days, then 1 tab for 3 days Start: 12-30-2023 End: 01-21-2024 take 3 tablets by mouth once daily at mealtime Prednisone 20 mg tablet Discontinued 60 mg PO daily 15 0 December 29, 2023 11:00pm January 21, 2024 11:45am administer with food or milk red yeast rice extract (10 sources) Start: 06-27-2022 End: 10-24-2022 red yeast rice extract Disco ntinued PO June 27, 2022 12:00am October 24, 2022 9:25am Start: 06-27-2022 End: 10-24-2022 red yeast rice extract Disco ntinued PO June 27, 2022 1:00am October 24, 2022 10:25am Start: 06-27-2022 red yeast rice extract Active PO June 27, 2022 1:00am Problems Active Problems Problem Classification Problem Date Documented Da te Episodic/Chronic Asthma (14 sources) Asthma; Translations: [Unspecified asthma, uncomplicated] Chronic Esophageal disorders (10 sources) Gastroesophageal reflux disease; Translations: [Gastro-esophageal reflux disease without esophagitis] 09-05-2022 Chronic Essential hypertension (11 sources) Essential hypertension; Translations: [Essential (primary) hypertension] 03-21-2022 Chronic Influenza (11 sources) Influenza due to Influenza A virus; Translations: [Influenza due to other identified influenza virus with other respiratory manifestations] 04-01-2022 Episodic Melanomas of skin (6 sources) Malignant melanoma of skin, unspecified; Translations: [Malignant melanoma of skin, unspecified] Onset: 1 06-25-2012 Chronic Melanomas of skin (20 sources) H/O Malignant melanoma; Translations: [Personal history of malignant melanoma of skin] Onset: Episodic Comment on above: No evidence of disea se clinically. Nonspecific chest pain (10 sources) Tight chest; Translations: [Other chest pain] 03-21-2022 Episodic Other bone disease and musculoskeletal deformities (20 sources) Segmental and somatic dysfunction; Translations: [Segmental and somatic dysfunction of lumbar region] Onset: 7 03-11-2017 Episodic Other bone disease and musculoskeletal deformities (3 sources) Segmental and somatic dysfunction of lumbar region; Translations: [Nonallopathic lesions, lumbar region] Onset: 5 10-09-2022 Episodic Other bone disease and musculoskeletal deformities (3 sources) Segmental and somatic dysfunction of pelvic region; Translations: [Nonallopathic lesions, pelvic region] Onset: 5 10-09-2022 Episodic Other bone disease and musculoskeletal deformities (1 source) Segmental and somatic dysfunction of thoracic region; Translations: [Segmental and somatic dysfunction of thoracic region] Onset: 5 Episodic Other bone disease and musculoskeletal deformities (1 source) Segmental and somatic dysfunction of cervical region; Translations: [Segmental and somatic dysfunction of cervical region] Onset: 5 Episodic Other congenital anomalies (12 sources) Hamartoma; 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 L upper lobe nodule, stable, thought to be a hamartoma.PET/CT on 02/04/2024 reviewed, negative.On observation.CXR on 02/02/2025 is stable. Other congenital anomalies (3 sources) Phakomatosis, unspecified; Translations: [Other hamartoses, not elsewhere classified] Onset: 5 Chronic Other connective tissue disease (11 sources) Pain in right lower limb; Translations: [Pain in right leg] 01-28-2017 Episodic Other connective tissue disease (2 sources) Pain in right leg; Translations: [Pain in limb] Episodic Other connective tissue disease (9 sources) Swelling of right lower limb; Translations: [Other specified soft tissue disorders] 10-24-2022 Episodic Comment on above: Could be lymphedema but need to r/o DVT Other connective tissue disease (1 source) Other specified soft tissue disorders; Translations: [Swelling of limb] 10-24-2022 Episodic Other gastrointestinal disorders (11 sources) History of gastroesophageal reflux disease; Translations: [Personal history of other diseases of the digestive system] 08-25-2018 Episodic Other gastrointestinal disorders (1 source) Personal history of other diseases of the digestive system; Translations: [Personal history of other diseases of digestive system] 03-21-2022 Episodic Other lower respiratory disease (11 sources) Nodule of lung; Translations: [Solitary pulmonary nodule] 12-26-2021 Episodic Comment on above: PET/CT inconclusive. CT 05/31/2021 show stable L lung nodule and hilar node. Other lower respiratory disease (1 source) Solitary pulmonary nodule; Translations: [Solitary pulmonary nodule] Episodic Other screening for suspected conditions (not mental disorders or infectious disease) (11 sources) Imaging of thorax abnormal; Translations: [Abnormal findings on diagnostic imaging of other specified body structures] 08-24-2020 Chronic Comment on above: cxr shows ? nipple s hadow Other skin disorders (9 sources) Skin nodule; Translations: [Localized swelling, mass and lump, unspecified] 10-24-2022 Episodic Other skin disorders (1 source) Localized swelling, mass and lump, unspecified; Translations: [Localized superficial swelling, mass, or lump] 10-24-2022 Episodic Residual codes; unclassified (11 sources) Tobacco user; Translations: [Tobacco use] 01-11-2021 Episodic Comment on above: Quit 2020 Residual codes; unclassified (2 sources) Tobacco use; Translations: [Tobacco use disorder] 03-21-2022 Episodic Spondylosis; intervertebral disc disorders; other back problems (20 sources) Lumbar radiculopathy; Translations: [Radiculopathy, lumbar region] Onset: 7 03-11-2017 Episodic Comment on above: L4/L5 Substance-related disorders (9 sources) Cigarette smoker ; Translations: [Nicotine dependence, cigarettes, uncomplicated] Onset: 5 12-18-2023 Chronic Comment on above: Quit 2019 Past or Other Problems Problem Classification Problem Date Documented Date Episodic/Chronic Administrative/social admission (20 sources) Administrative reason for encounter; Translations: [Encounter for examination for driving license] Onset: 04-27-2024 03-21-2022 Episodic Unclassified (11 sources) sentinel node biopsy 11-09-2021 Results Test Name Value Interpretation Reference Range Facility Oncology Visit Reporton 01-21 Oncology Visit Report [facility] [address] [place], [place] [address] [address] OFFICE VISIT Date of Service: 02/09/25 1559 MR#: [id number] Acct: [id number] Name: DANIELLE CHRISTY Rep #: [id number] : 1960 From: Jesus Hogan MD Age/Sex: 64/M [place] [facility] Status: Signed HPI Subjective Date of Service 02/09/25 Chief Complaint F/u for Melanoma and L lung nodule. History of Present Illness 64y.o.man was diagnosed with Melanoma Right lower leg, had excision on 01/03/2011 then wide excision with right groin sentinel node dissection on 02/05/2011 for stage IIIA([id number]) disease. Lymph node dissection was done on 05/15/2011 with no residual nodes detected. He received adjuvant Interferon from May, 2011 to May, 2012. He was on observation, came to clinic in 12/2016 and complained of right lower back pain and leg numbness for about 2 months, MRI brain on 01/21/2017 showed no metastasis, artifact in left lateral orbit, correlate for metallic foreign body. CT scan of thoracic and lumbar spine on 02/13/2017 showed mild spondylosis of thoracic spine, mild stenosis at L4/5. He elected to pursue Chiropractor help. He is on observation for Melanoma. CXR on 08/18/2020 showed Left lung nodule. CT chest on 08/26/2020 showed 1cm L lingular nodule. PET/CT on 2020 showed no hypermetabolic activity. CT 12/05/2020 showed L lingular nodule 1cm and hilar node 1.1cm. CT chest on 12/11/2021 showed 8mm nodule TANA. PET/CT done on 02/02/2025 should no hypermetabolic activity. He is on observation. Comes for follow up. Feels well. [facility] Medical History H/O Malignant melanoma Pancreatitis sentinel node biopsy Surgical History History of melanoma excision Family History Father Cancer BCC removed from shoulder Other Diabetes History of blood clots Myocardial infarction Skin cancer Social History (Reviewed 02/09/25 @ 16:01 by MONA Brito Smoking Status: Former smoker quit date: 08/21/19 pack-years: 40 Tobacco: How many years used: 40 alcohol intake: current alcohol intake frequency: a few times a month Alcohol type: hard liquor details: seldom substance use type: does not use caffeine: Yes Type: coffee Intake Vital Signs 07/28/24 08:09 02/09/25 16:01 02/09/25 16:03 Height 5 ft 7 in 5 ft 7 in 5 ft 7 in Weight: 94.461 kg BMI 32.5 BP 103/65 Blood Pressure Location Lt brachial Position Sitting Respiration 18 Pulse 61 Pulse Source Monitor Temp 98.4 F Temperature Source Temporal Artery Pulse Oximetry (%) 99 Oxygen Delivery Method room air Intake Accompanied by: Is patient in pain?: No Allergies No Known Allergies Allergy (Verified 02/09/25 15:59) Medications ???Medication ???Instructions ???Recorded ???Confirmed ???Type acetaminophen 325 mg tablet 325 mg PO PRN PRN Pain 07/19/16 History (Tylenol) Ibuprofen 400 mg PO PRN PRN Pain 01/28/17 History cholecalciferol (vitamin D3) 25 25 mcg PO DAILY 06/27/22 02/09/25 History mcg (1,000 unit) capsule omeprazole 40 mg capsule,delayed 40 mg PO DAILY #90 caps 09/05/22 1 Rx release spacer #1 ea 03/29/23 02/09/25 Rx albuterol 90 mcg-budesonide 80 2 inh inhalation TID PRN shortness 01/01/25 02/09/25 Rx mcg/actuation HFA aerosol inhaler of breath #10.7 grams (Airsupra) lisinopril 20 mg tablet 20 mg PO DAILY PRN hypertension History Central Venous Access Central Venous Access: No 02/02/2025 CXR reviewed. RAD/Chest PA and Lateral IMPRESSION: No focal consolidations. Question 10 x 7 mm left lower thoracic opacity which may reflect a pulmonary nodule. Exam Physical Exam Const alert, oriented x3 and no apparent distress General Appearance: cooperative and comfortable HEENT normocephalic, external ears normal and external nose normal Eyes conjunctivae normal and no scleral icterus Neck supple Lymph Lymphatic: no lymphadenopathy noted Chest inspection of chest normal Resp normal respiratory effort, no use of accessory muscles and clear to auscultation bilaterally Cardio regular rate, regular rhythm, S1 normal heart sound, S2 normal heart sound and no murmurs GI normal to inspection, nondistended, normoactive bowel sounds GI Narrative: +R groin scar. no CVA tenderness Back/Spine thoracic and lumbar spine normal to inspection Extremity Extremity Narrative: + scar R leg. + small skin nodule 3mm on the horner. +swelling R. Skin no rashes or lesions noted Neuro oriented x3, CN's II-XII intact bilaterally, moves all extr (more content not included)... Normal [facility] Absolute lymphocyte countOrd ered By: Jesus Hogan on 02-02-2025 Lymphocytes Auto (Unsp spec) [#/Vol] 2.12 10*3/uL 0.83-4.51 [facility] Absolute neutrophil countOrd ered By: Jesus Hogan on 02-02-2025 Neutrophils (Bld) [#/Vol] 2.3 10*3/uL 2.0-7.7 [facility] Anion gap in Serum or Plasma Ordered By: Jesus Hogan on 02-02-2025 Anion gap [Moles/Vol] 11 mmol/L - [facility] Automated lymphocyte count a s percentage of total leukocytesOrdered By: Jesus Hogan on 02-02-2025 Lymphocytes/100 WBC Auto (Unsp spec) 41.6 % High 19- [facility] BUN/creatinine ratioOrdered By: Jesus Hogan on 02-02-2025 Urea nitrogen/Creatinine [Mass ratio] 13.1 mg/mg - [facility] Basophil percentageOrdered B y: Jesus Hogan on 02-02-2025 Basophils/100 WBC (Bld) 0.6 % 0-1 [facility] Bilirubin, totalOrdered By: Jesus Hogan on 02-02-2025 Bilirubin [Mass/Vol] 0.65 mg/dL 0.00-1.30 [facility] CBC W/Diff, Automatedon 01-20 Absolute Lymph 2.12 X10 3/uL Normal 0.83-4.51 [facility] Comment on above: Performed By: #### L 500.4050, L100.0100, L504.2610 ####[facility] [address] [place], [address] Absolute Neut 2.3 X10 3/uL Normal 2.0-7.7 [facility] Comment on above: Performed By: #### L 500.4050, L100.0100, L504.2610 ####[facility] [address] [place], [address] Basophils/100 WBC (Bld) 0.6 % Normal 0-1 [facility] Comment on above: Performed By: #### L 500.4050, L100.0100, L504.2610 ####[facility] [address] [place], [address] Eosinophils/100 WBC (Bld) 2.4 % Normal 0-5 [facility] Comment on above: Performed By: #### L 500.4050, L100.0100, L504.2610 ####[facility] [address] [place], [address] Erythrocyte distribution width (RBC) [Ratio] 12.7 % Normal 11.6-14.6 [facility] Comment on above: Performed By: #### L 500.4050, L100.0100, L504.2610 ####[facility] [address] [place], [address] Hematocrit (Bld) [Volume fraction] 40.2 % Normal 40-54 [facility] Comment on above: Performed By: #### L 500.4050, L100.0100, L504.2610 ####[facility] [address] [place], [address] Hemoglobin (Bld) [Mass/Vol] 13.8 g/dL Normal 13.0-16.5 [facility] Comment on above: Performed By: #### L 500.4050, L100.0100, L504.2610 ####[facility] [address] [place], [address] IG% 0.600 Normal 0.0-0.9 [facility] Comment on above: Result Comment: IG% - Immature Granulocytes (promyelocytes, myelocytes and metamyelocytes) > 1% indicates that a LEFT SHIFT is Present. Performed By: #### L 500.4050, L100.0100, L504.2610 ####[facility] [address] [place], [address] Lymphocytes/100 WBC (Bld) 41.6 % High 19-41 [facility] Comment on above: Performed By: #### L 500.4050, L100.0100, L504.2610 ####[facility] [address] [place], [address] MCH (RBC) [Entitic mass] 30.7 pg Normal 27.0-32.0 [facility] Comment on above: Performed By: #### L 500.4050, L100.0100, L504.2610 ####[facility] [address] [place], [address] MCHC (RBC) [Mass/Vol] 34.3 g/dL Normal 32-36 [facility] Comment on above: Performed By: #### L 500.4050, L100.0100, L504.2610 ####[facility] [address] [place], [address] MCV (RBC) [Entitic vol] 89.5 fL Normal 80-94 [facility] Comment on above: Performed By: #### L 500.4050, L100.0100, L504.2610 ####[facility] [address] [place], [address] Monocytes/100 WBC (Bld) 10.8 % High 0-10 [facility] Comment on above: Performed By: #### L 500.4050, L100.0100, L504.2610 ####[facility] [address] [place], [address] Neutrophils/100 WBC (Bld) 44.0 % Low 47-70 [facility] Comment on above: Performed By: #### L 500.4050, L100.0100, L504.2610 ####[facility] [address] [place], [address] Nucleated RBC (Bld) [#/Vol] 0 10*3/uL Normal 0-5 [facility] Comment on above: Performed By: #### L 500.4050, L100.0100, L504.2610 ####[facility] [address] [place], [address] Platelet mean volume (Bld) [Entitic vol] 9.3 fL Normal 6.2-12.0 [facility] Comment on above: Performed By: #### L 500.4050, L100.0100, L504.2610 ####[facility] [address] [place], [address] Platelets (Bld) [#/Vol] 246 10*3/uL Normal 150-450 [facility] Comment on above: Performed By: #### L 500.4050, L100.0100, L504.2610 ####[facility] [address] [place], [address] RBC (Bld) [#/Vol] 4.49 10*6/uL Low 4.6-6.2 [facility] Comment on above: Performed By: #### L 500.4050, L100.0100, L504.2610 ####[facility] [address] [place], [address] RDW SD 41.6 fl Normal 35.1-43.9 [facility] Comment on above: Performed By: #### L 500.4050, L100.0100, L504.2610 ####[facility] [address] [place], [address] WBC (Bld) [#/Vol] 5.1 10*3/uL Normal 4.4-11.0 [facility] Comment on above: Performed By: #### L 500.4050, L100.0100, L504.2610 ####[facility] [address] [place], [address] Carbon dioxide, total [Moles /volume] in Central venous bloodOrdered By: Jesus Hogan on 02-02-2025 CO2 [Moles/Vol] 22.9 mmol/L 21.0-32.0 [facility] Chest PA and Lateralon 02-02 Chest PA and Lateral [facility] Imaging Services [address] [place] [address] Chest PA and Lateral MR#: [id number] Acct: [id number] Name: DANIELLE CHRISTY Rep #: [id number] : 1960 M 64 From: Bradly Quarles PCP: Dr. Amena Friedman MD Status: REG CLI Study: Chest PA and Lateral Date of Exam: 02/02/25 Exam# [id number] Ordering Dr: Jesus Hogan MD PROCEDURE: CHEST PA AND LATERAL 02/02/2025 REASON FOR EXAM: HISTORY OF MALIGNANT MELANOMA TECHNIQUE: Procedure Code: RADCXR Modality: DX Procedure: CHEST PA AND LATERAL COMPARISON: None FINDINGS: Question 10 x 7 mm left lower thoracic opacity which may reflect a pulmonary nodule. No focal consolidation. No pleural effusion or pneumothorax. Cardiac silhouette is within normal limits. No acute fractures. RAD/Chest PA and Lateral IMPRESSION: No focal consolidations. Question 10 x 7 mm left lower thoracic opacity which may reflect a pulmonary nodule. Reading Location: [id number] CC: Dr. Jesus Hogan MD; Dr. Amena Friedman MD At Risk Specialist: Signed Normal [facility] Chloride assayOrdered By: Gill Hogan on 02-02-2025 Chloride [Moles/Vol] 100 mmol/L 98-108 [facility] Comprehensive Metabolic Prof ilon 02-02-2025 Albumin [Mass/Vol] 4.4 g/dL Normal 3.4-4.8 [facility] Comment on above: Performed By: #### L 500.4050, L100.0100, L504.2610 ####[facility] [address] [place], [address] Albumin/Globulin [Mass ratio] 1.8 {ratio} Normal 0.9-2.4 [facility] Comment on above: Performed By: #### L 500.4050, L100.0100, L504.2610 ####[facility] [address] [place], [address] ALK PHOS 62 U/L Normal 40-129 [facility] Comment on above: Performed By: #### L 500.4050, L100.0100, L504.2610 ####[facility] [address] [place], [address] ALT [Catalytic activity/Vol] 48 U/L High <=46 [facility] Comment on above: Performed By: #### L 500.4050, L100.0100, L504.2610 ####[facility] [address] [place], [address] AST [Catalytic activity/Vol] 31 U/L Normal <=37 [facility] Comment on above: Performed By: #### L 500.4050, L100.0100, L504.2610 ####[facility] [address] [place], [address] Bilirubin [Mass/Vol] 0.65 mg/dL Normal 0.00-1.30 [facility] Comment on above: Performed By: #### L 500.4050, L100.0100, L504.2610 ####[facility] [address] [place], [address] BUN/CRE 13.1 RATIO Normal 10-20 [facility] Comment on above: Performed By: #### L 500.4050, L100.0100, L504.2610 ####[facility] [address] [place], [address] Calcium [Mass/Vol] 9.1 mg/dL Normal 7.6-11.0 [facility] Comment on above: Performed By: #### L 500.4050, L100.0100, L504.2610 ####[facility] [address] [place], [address] Chloride [Moles/Vol] 100 mmol/L Normal 98-108 [facility] Comment on above: Performed By: #### L 500.4050, L100.0100, L504.2610 ####[facility] [address] [place], [address] CO2 [Moles/Vol] 22.9 mmol/L Normal 21.0-32.0 [facility] Comment on above: Performed By: #### L 500.4050, L100.0100, L504.2610 ####[facility] [address] [place], [address] Creatinine [Mass/Vol] 1.02 mg/dL Normal 0.70-1.20 [facility] Comment on above: Performed By: #### L 500.4050, L100.0100, L504.2610 ####[facility] [address] [place], [address] GAP 11 Normal 5-15 [facility] Comment on above: Performed By: #### L 500.4050, L100.0100, L504.2610 ####[facility] [address] [place], [address] GFR/1.73 sq M.predicted among non-blacks MDRD (S/P/Bld) [Vol rate/Area] 83 mL/min/{1.73_m2} Normal >60 [facility] Comment on above: Result Comment: mL/m in/1.73m2 CKD-EPI Creatinine Equation (2020) Performed By: #### L 500.4050, L100.0100, L504.2610 ####[facility] [address] [place], [address] Globulin (S) [Mass/Vol] 2.4 g/dL Normal 2.2-4.2 [facility] Comment on above: Performed By: #### L 500.4050, L100.0100, L504.2610 ####[facility] [address] [place], [address] Glucose [Mass/Vol] 92 mg/dL Normal 70-99 [facility] Comment on above: Performed By: #### L 500.4050, L100.0100, L504.2610 ####[facility] [address] [place], [address] Potassium [Moles/Vol] 4.0 mmol/L Normal 3.3-5.1 [facility] Comment on above: Performed By: #### L 500.4050, L100.0100, L504.2610 ####[facility] [address] [place], [address] Sodium [Moles/Vol] 134 mmol/L Normal 133-145 [facility] Comment on above: Performed By: #### L 500.4050, L100.0100, L504.2610 ####[facility] [address] [place], [address] T PROT 6.8 g/dL Normal 5.9-8.4 [facility] Comment on above: Performed By: #### L 500.4050, L100.0100, L504.2610 ####[facility] [address] [place], [address] Urea nitrogen [Mass/Vol] 13 mg/dL Normal 4-19 [facility] Comment on above: Performed By: #### L 500.4050, L100.0100, L504.2610 ####[facility] [address] [place], [address] Eosinophil percentageOrdered By: Jesus Hogan on 02-02-2025 Eosinophils/100 WBC (Bld) 2.4 % 0-5 [facility] Erythrocyte distribution wid th ratioOrdered By: Jesus Hogan on 02-02-2025 Erythrocyte distribution width (RBC) [Ratio] 12.7 % 11.6-14.6 [facility] Erythrocyte distribution wid th standard deviationOrdered By: Jesus Hogan on 02-02-2025 Erythrocyte distribution width (RBC) [Ratio] 41.6 fl 35.1-43.9 [facility] Glomerular filtration rate ( GFR) estimation/1.73 sq m using serum, plasma, or whole bOrdered By: Jesus Hogan on 02-02-2025 GFR/1.73 sq M.predicted among non-blacks MDRD (S/P/Bld) [Vol rate/Area] 83 mL/min/{1.73_m2} >60 [facility] Comment on above: mL/min/1.73m2 CKD-EP I Creatinine Equation (2020) Hematocrit Auto (Bld) [Volum e fraction]Ordered By: Jesus Hogan on 02-02-2025 Hematocrit (Bld) [Volume fraction] 40.2 % 40-54 [facility] Hemoglobin measurementOrdere d By: Jesus Hogan on 02-02-2025 Hemoglobin (Bld) [Mass/Vol] 13.8 g/dL 13.0-16.5 [facility] Immature granulocytes/100 WB C Auto (Bld)Ordered By: Jesus Hogan on 02-02-2025 Immature granulocytes/100 WBC (Bld) 0.600 % 0.0-0.9 [facility] Comment on above: IG% - Immature Granu locytes (promyelocytes, myelocytes and metamyelocytes) > 1% indicates that a LEFT SHIFT is Present. LDHon 02-02-2025 LDH 214 U/L Normal 87-241 [facility] Comment on above: Order Comment: 1 Performed By: #### L 500.4050, L100.0100, L504.2610 ####[facility] [address] [place], [address] Laboratory - Chemistry and C hemistry - challengeOrdered By: [place] Samira on 02-02-2025 AST [Catalytic activity/Vol] 31 U/L <38 [facility] Lactate dehydrogenase (LDH) measurementOrdered By: Jesus Hogan on 02-02-2025 LDH [Catalytic activity/Vol] 214 U/L 87-241 [facility] MCV (mean corpuscular volume ) determinationOrdered By: Jesus Hogan on 02-02-2025 MCV (RBC) [Entitic vol] 89.5 fL 80-94 [facility] Mean corpuscular hemoglobin (MCH) determinationOrdered By: Jesus Samira on 02-02-2025 MCH (RBC) [Entitic mass] 30.7 pg 27.0-32.0 [facility] Mean corpuscular hemoglobin concentration (MCHC) determinationOrdered By: Jesus Hogan on 02-02-2025 MCHC (RBC) [Mass/Vol] 34.3 g/dL 32-36 [facility] Mean platelet volume determi nationOrdered By: Jesus Hogan on 02-02-2025 Platelet mean volume (Bld) [Entitic vol] 9.3 fL 6.2-12.0 [facility] Monocyte percentageOrdered B y: Jesus Hogan on 02-02-2025 Monocytes/100 WBC (Bld) 10.8 % High 0-10 [facility] Neutrophil percentageOrdered By: Jesus Hogan on 02-02-2025 Neutrophils/100 WBC (Bld) 44.0 % Low 47-70 [facility] Nucleated red blood cell per centageOrdered By: Jesus Hogan on 02-02-2025 Nucleated RBC/100 WBC (Bld) [Ratio] 0 % 0-5 [facility] Platelet countOrdered By: Gill Hogan on 02-02-2025 Platelets (Bld) [#/Vol] 246 10*3/uL 150-450 [facility] Potassium measurement (mass/ volume)Ordered By: Jesus Hogan on 02-02-2025 Potassium (Unsp spec) [Mass/Vol] 4.0 mmol/L 3.3-5.1 [facility] RBC Auto (Bld) [#/Vol]Ordere d By: Jesus Hogan on 02-02-2025 RBC (Bld) [#/Vol] 4.49 10*6/uL Low 4.6-6.2 [facility] Serum creatinine measurement (mass/volume)Ordered By: Jesus Hogan on 02-02-2025 Creatinine [Mass/Vol] 1.02 mg/dL 0.70-1.20 [facility] Serum globulin measurementOr dered By: Jesus Hogan on 02-02-2025 Globulin (S) [Mass/Vol] 2.4 g/dL 2.2-4.2 [facility] Serum glucose measurement (m ass/volume)Ordered By: Jesus Hogan on 02-02-2025 Glucose [Mass/Vol] 92 mg/dL 70-99 [facility] Serum or plasma alanine bergman otransferase (ALT) measurementOrdered By: Jesus Hogan on 02-02-2025 ALT [Catalytic activity/Vol] 48 U/L High <47 [facility] Serum or plasma albumin jessica urement (mass/volume)Ordered By: Jesus Hogan on 02-02-2025 Albumin [Mass/Vol] 4.4 g/dL 3.4-4.8 [facility] Serum or plasma albumin/glob ulin mass ratioOrdered By: Jesus Hogan on 02-02-2025 Albumin/Globulin [Mass ratio] 1.8 {ratio} 0.9-2.4 [facility] Serum or plasma alkaline missy sphatase measurementOrdered By: Jesus Hogan on 02-02-2025 ALP [Catalytic activity/Vol] 62 U/L 40-129 [facility] Serum or plasma calcium jessica urement (mass/volume)Ordered By: Jesus Hogan on 02-02-2025 Calcium [Mass/Vol] 9.1 mg/dL 7.6-11.0 [facility] Serum or plasma urea nitroge n measurement (mass/volume)Ordered By: Jesus Hogan on 02-02-2025 Urea nitrogen [Mass/Vol] 13 mg/dL 4-19 [facility] Sodium levelOrdered By: Bandar Hogan on 02-02-2025 Sodium [Moles/Vol] 134 mmol/L 133-145 [facility] Total proteinOrdered By: Devin Hogan on 02-02-2025 Protein [Mass/Vol] 6.8 g/dL 5.9-8.4 [facility] White blood cell (WBC) count Ordered By: Jesus Samira on 02-02-2025 WBC (Bld) [#/Vol] 5.1 10*3/uL 4.4-11.0 [facility] Chiropractic Reporton 2024 Chiropractic Report [facility] [address] [place] [address] OFFICE VISIT Date of Service: 12/23/24 MR#: [id number] Acct: [id number] Name: DANIELLE CHRISTY Rep #: [id number] : 1960 Provider: JONAH Coon Age/Sex: 64/M [facility] Status: Signed Intake Vital Signs 07/28/24 08:09 Height 5 ft 7 in Intake Visit Reasons: BACK PAIN Chief Complaint: low back pain Allergies No Known Allergies Allergy (Verified 12/23/24 08:05) Medications ???Medication ???Instructions ???Recorded ???Confirmed ???Type acetaminophen 325 mg tablet 325 mg PO PRN PRN Pain 07/19/16 History (Tylenol) Ibuprofen 400 mg PO PRN PRN Pain 01/28/17 History cholecalciferol (vitamin D3) 25 25 mcg PO DAILY 06/27/22 12/23/24 History mcg (1,000 unit) capsule omeprazole 40 mg capsule,delayed 40 mg PO DAILY #90 caps 09/05/22 0 12/23/24 Rx release spacer #1 ea 03/29/23 12/23/24 Rx albuterol 90 mcg-budesonide 80 2 inh inhalation TID PRN shortness 12/17/23 12/23/24 Rx mcg/actuation HFA aerosol inhaler of breath #10.7 grams (Airsupra) azithromycin 250 mg tablet See Rx Instructions PO .COMPLEX #6 04/23/24 12/23/24 Rx tabs prednisone 10 mg tablet 10 mg PO QDAY #30 tabs 06/15/24 Rx lisinopril 20 mg tablet 20 mg PO DAILY hypertension #90 12/23/24 Rx tabs PFSH Medical History H/O Malignant melanoma Pancreatitis sentinel node biopsy Surgical History History of melanoma excision Family History Father Cancer BCC removed from shoulder Other Diabetes History of blood clots Myocardial infarction Skin cancer Social History Smoking Status: Former smoker quit date: 08/21/19 pack-years: 40 Tobacco: How many years used: 40 alcohol intake: current alcohol intake frequency: a few times a month Alcohol type: hard liquor details: seldom substance use type: does not use caffeine: Yes Type: coffee HPI BACK PAIN Chief Complaint: right low back pain Visit Number: 12 Details: Danielle Christy a 64 year old male here to follow up with right low back pain. Pt. reports he feels as though his right low back is tightening up. He states it is equal across his low back bilat erally and denies recent radiculopathy. He denies new injury, numbness or tingling into his BLE. He gets occasional neck and upper back tightness at times as well. 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 Pt. reports chiropractic is helpful to relieve his pain and discomfort but it slowly returns. Location: mid/low back Duration: intermittent Aggravating or associated factors: bending, standing, sitting/driving Relieving factors: chiro Pain Quality: aching, dull and radiating Exam Musc General: Yes normal posture, normal gait, joint tenderness and decreased range of motion; No muscle weakness Cervical Spine: Yes loss of normal cervical lordosis Thoracic/Lumber: Yes thoracic and lumbar spine normal to inspection, Yes paraspinal tenderness bilaterally in the upper thoracic and in the mid thoracic and on the right greater than left (lumbopelvic), Yes thoraco-lumbar spasm bilaterally (trap) in the upper thoracic and in the mid thoracic, on the right greater than left (piriformis) and on the left greater than right (lumbar paraspinal) and Yes misalignment T1, T3, T4, T5, L2, L3, L4, L5 and RIL Sacroiliac joints: on the right tender to palpation Office Procedures Procedures - Chiropractic Procedures Manipulation: Lumbar L3, Thoracic T4 and Pelvis RIL Manipulation: 3-4 regions Electronic Stimulation: Yes Electrical Stimulation: Lumbar 15 mins (29) mA Therapy Performed by:: Neva Villa Traction, Mechanical: Yes Patient Response: positive Assessment and Plan Assessment and Plan (1) Segmental and somatic dysfunction of lumbar region: Status: Acute (2) Segmental and somatic dysfunction of thoracic region: Status: Acute (3) Segmental and somatic dysfunction of pelvic region: Status: Acute (4) Spinal stenosis of lumbar region: Status: Chronic Qualifiers: Neurogenic claudication status: without neurogenic claudication Qualified Code(s): M48.061 - Spinal stenosis, lumbar region without neurogenic claudication Comment: L4/L5 Orders: Orders Chiropractic Treatments Today M48.061 - Spinal stenosis, lumbar region without neurogenic claudication, M54.16 - Radiculopathy, lumbar region, M99.01 - Segmental and somatic dysfunction of cervical region, M99.02 - Segmental and somatic dysfunction of thoracic region, M99.03 - Segmental and somatic dysfunct (more content not included)... Normal [facility] Chiropractic Reporton [address] [facility] [address] [place] [address] OFFICE VISIT Date of Service: 12/01/24 MR#: [id number] Acct: [id number] Name: JAELYN,DANIELLE ESCALANTENE Rep #: [id number] : 1960 Provider: JONAH Coon Age/Sex: 64/M Location: [facility] Status: Signed Intake Vital Signs 07/28/24 08:09 Height 5 ft 7 in Intake Visit Reasons: BACK PAIN Chief Complaint: low back pain Allergies No Known Allergies Allergy (Verified 12/01/24 08:02) Medications ???Medication ???Instructions ???Recorded ???Confirmed ???Type acetaminophen 325 mg tablet 325 mg PO PRN PRN Pain 07/19/16 History (Tylenol) Ibuprofen 400 mg PO PRN PRN Pain 01/28/17 History cholecalciferol (vitamin D3) 25 25 mcg PO DAILY 06/27/22 12/01/24 History mcg (1,000 unit) capsule omeprazole 40 mg capsule,delayed 40 mg PO DAILY #90 caps 09/05/22 0 12/01/24 Rx release spacer #1 ea 03/29/23 12/01/24 Rx albuterol 90 mcg-budesonide 80 2 inh inhalation TID PRN shortness 12/17/23 12/01/24 Rx mcg/actuation HFA aerosol inhaler of breath #10.7 grams (Airsupra) azithromycin 250 mg tablet See Rx Instructions PO .COMPLEX #6 04/23/24 12/01/24 Rx tabs prednisone 10 mg tablet 10 mg PO QDAY #30 tabs 06/15/24 Rx lisinopril 20 mg tablet 20 mg PO DAILY hypertension #90 12/01/24 Rx tabs PFSH Medical History H/O Malignant melanoma Pancreatitis sentinel node biopsy Surgical History History of melanoma excision Family History Father Cancer BCC removed from shoulder Other Diabetes History of blood clots Myocardial infarction Skin cancer Social History Smoking Status: Former smoker quit date: 08/21/19 pack-years: 40 Tobacco: How many years used: 40 alcohol intake: current alcohol intake frequency: a few times a month Alcohol type: hard liquor details: seldom substance use type: does not use caffeine: Yes Type: coffee HPI BACK PAIN Chief Complaint: right low back pain Visit Number: 11 Details: Danielle Christy a 64 year old male here to follow up with right low back pain. Pt. complains his right low back is tightening up. He states it is equal across his low back bilaterally and denies recent radiculopathy. He denies new injury, numbness or tingling into his leg. He gets occasional neck and upper back tightness, but it is improving overall. 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 Pt. reports chiropractic is helpful to relieve his pain and discomfort but it slowly returns. Location: mid/low back Duration: intermittent Aggravating or associated factors: bending, standing, sitting/driving Relieving factors: chiro Pain Quality: aching, dull and radiating Exam Musc General: Yes normal posture, normal gait, joint tenderness and decreased range of motion; No muscle weakness Cervical Spine: Yes loss of normal cervical lordosis Thoracic/Lumber: Yes thoracic and lumbar spine normal to inspection, Yes paraspinal tenderness bilaterally in the upper thoracic and in the mid thoracic and on the right greater than left (lumbopelvic), Yes thoraco-lumbar spasm bilaterally (trap) in the upper thoracic and in the mid thoracic, on the right greater than left (piriformis) and on the left greater than right (lumbar paraspinal) and Yes misalignment T1, T3, T4, T5, L2, L3, L4, L5 and RIL Sacroiliac joints: on the right tender to palpation Office Procedures Procedures - Chiropractic Procedures Manipulation: Lumbar L3, Thoracic T4 and Pelvis RIL Manipulation: 3-4 regions Electronic Stimulation: Yes Electrical Stimulation: Lumbar 15 mins (31) mA Therapy Performed by:: Neva Villa Traction, Mechanical: Yes Patient Response: positive Assessment and Plan Assessment and Plan (1) Segmental and somatic dysfunction of lumbar region: Status: Acute (2) Segmental and somatic dysfunction of thoracic region: Status: Acute (3) Segmental and somatic dysfunction of pelvic region: Status: Acute (4) Spinal stenosis of lumbar region: Status: Chronic Qualifiers: Neurogenic claudication status: without neurogenic claudication Qualified Code(s): M48.061 - Spinal stenosis, lumbar region without neurogenic claudication Comment: L4/L5 Orders: Orders Chiropractic Treatments Today M48.061 - Spinal stenosis, lumbar region without neurogenic claudication, M54.16 - Radiculopathy, lumbar region, M99.02 - Segmental and somatic dysfunction of thoracic region, M99.03 - Segmental and somatic dysfunction of lumbar region, M99.05 - Segmental and somatic dysfunction of p (more content not included)... [facility]rop[facility]ic Reporton 2024 Chiropractic Report [facility] Chiropract[facility] [place] [address] OFFICE VISIT Date of Service: 11/09/24 MR#: [id number] Acct: [id number] Name: DANIELLE CHRISTY Rep #: [id number] : 1960 Provider: JONAH Coon Age/Sex: 64/M Location: [facility] [place] Status: Signed Intake Vital Signs 07/28/24 08:09 Height 5 ft 7 in Intake Visit Reasons: BACK PAIN Chief Complaint: low back pain Allergies No Known Allergies Allergy (Verified 11/09/24 16:02) Medications ???Medication ???Instructions ???Recorded ???Confirmed ???Type acetaminophen 325 mg tablet 325 mg PO PRN PRN Pain 07/19/16 History (Tylenol) Ibuprofen 400 mg PO PRN PRN Pain 01/28/17 History cholecalciferol (vitamin D3) 25 25 mcg PO DAILY 06/27/22 11/09/24 History mcg (1,000 unit) capsule omeprazole 40 mg capsule,delayed 40 mg PO DAILY #90 caps 09/05/22 0 11/09/24 Rx release spacer #1 ea 03/29/23 11/09/24 Rx albuterol 90 mcg-budesonide 80 2 inh inhalation TID PRN shortness 12/17/23 11/09/24 Rx mcg/actuation HFA aerosol inhaler of breath #10.7 grams (Airsupra) azithromycin 250 mg tablet See Rx Instructions PO .COMPLEX #6 04/23/24 11/09/24 Rx tabs prednisone 10 mg tablet 10 mg PO QDAY #30 tabs 06/15/24 Rx lisinopril 20 mg tablet 20 mg PO DAILY hypertension #90 11/09/24 Rx tabs PFSH Medical History H/O Malignant melanoma Pancreatitis sentinel node biopsy Surgical History History of melanoma excision Family History Father Cancer BCC removed from shoulder Other Diabetes History of blood clots Myocardial infarction Skin cancer Social History Smoking Status: Former smoker quit date: 08/21/19 pack-years: 40 Tobacco: How many years used: 40 alcohol intake: current alcohol intake frequency: a few times a month Alcohol type: hard liquor details: seldom substance use type: does not use caffeine: Yes Type: coffee HPI BACK PAIN Chief Complaint: right low back pain Visit Number: 10 Details: Danielle Christy a 64 year old male here to follow up with right low back pain. Pt. states his right low back began to tighten up. He states he has not had radiculopathy recently. He denies new injury, numbness or tingling into his leg. He gets occasional neck and upper back tightness, but it is improving overall. 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 Pt. reports chiropractic is helpful in relieving his pain and discomfort but it slowly returns. Location: low back/neck Duration: intermittent/occas ional Aggravating or associated factors: bending, standing, sitting/driving Relieving factors: chiro Pain Quality: aching, dull and radiating Exam Musc General: Yes normal posture, normal gait, joint tenderness and decreased range of motion; No muscle weakness Cervical Spine: Yes loss of normal cervical lordosis, Yes cervical muscular tenderness (mild) bilateral lower , Yes cervical spasm bilateral lower trapezius and paracervical muscles and Yes misalignment misalignment: C6 and C7 Thoracic/Lumber: Yes thoracic and lumbar spine normal to inspection, Yes paraspinal tenderness bilaterally in the upper thoracic and in the mid thoracic and on the right greater than left (lumbopelvic), Yes thoraco-lumbar spasm bilaterally (trap) in the upper thoracic and in the mid thoracic, on the right greater than left (piriformis) and on the left greater than right (lumbar paraspinal) and Yes misalignment T1, T3, T4, T5, L2, L3, L4, L5 and RIL Sacroiliac joints: on the right tender to palpation Office Procedures Procedures - Chiropractic Procedures Manipulation: Lumbar L3, Thoracic T1 and T4 and Pelvis RIL Manipulation: 3-4 regions Electronic Stimulation: Yes Electrical Stimulation: Lumbar 15 mins (15) mA Therapy Performed by:: Neva Villa Traction, Mechanical: Yes Patient Response: positive Assessment and Plan Assessment and Plan (1) Spinal stenosis at L4-L5 level: Status: Chronic (2) Segmental and somatic dysfunction of lumbar region: Status: Acute (3) Segmental and somatic dysfunction of thoracic region: Status: Acute (4) Segmental and somatic dysfunction of pelvic region: Status: Acute Orders: Orders Chiropractic Treatments 11/09/24 M48.061 - Spinal stenosis, lumbar region without neurogenic claudication, M54.16 - Radiculopathy, lumbar region, M99.02 - Segmental and somatic dysfunction of thoracic region, M99.03 - Segmental and somatic dysfunction of lumbar region, M99.05 - Segmental and somatic dysfunction of pelvic region Plan Patie (more content not included)... [facility]ropractic Reporton [address] [facility]rop[facility] [place] [address] OFFICE VISIT Date of Service: 10/07/24 MR#: [id number] Acct: [id number] Name: DANIELLE CHRISTY Rep #: [id number] : 1960 Provider: JONAH Coon Age/Sex: 64/M Location: [facility] [place] Status: Signed Intake Vital Signs 07/28/24 08:09 Height 5 ft 7 in Intake Visit Reasons: BACK PAIN Chief Complaint: low back pain Allergies No Known Allergies Allergy (Verified 09/21/24 15:59) [facility] Medical History H/O Malignant melanoma Pancreatitis sentinel node biopsy Surgical History History of melanoma excision Family History Father Cancer BCC removed from shoulder Other Diabetes History of blood clots Myocardial infarction Skin cancer Social History Smoking Status: Former smoker quit date: 08/21/19 pack-years: 40 Tobacco: How many years used: 40 alcohol intake: current alcohol intake frequency: a few times a month Alcohol type: hard liquor details: seldom substance use type: does not use caffeine: Yes Type: coffee HPI BACK PAIN Chief Complaint: right low back pain Visit Number: 9 Details: Danielle Christy a 64 year old male here to follow up with right low back pain. Pt. states his low back pain continues to improve. He continues to experience some intermittent mild right low back pain and radiculopathy down his right hamstring into his knee but it is very infrequent. He denies new injury, numbness or tingling into his leg. He gets occasional neck and upper back tightness. 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 Pt. reports chiropractic adjustments and E-stim are helpful in relieving his pain and discomfort. Location: low back/neck Duration: intermittent Aggravating or associated factors: bending, standing, sitting/driving Relieving factors: chiro Pain Quality: aching, dull and radiating Exam Musc General: Yes normal posture, normal gait, joint tenderness and decreased range of motion; No muscle weakness Cervical Spine: Yes loss of normal cervical lordosis, Yes cervical muscular tenderness bilateral lower , Yes cervical spasm bilateral lower trapezius and paracervical muscles and Yes misalignment misalignment: C6 and C7 Thoracic/Lumber: Yes thoracic and lumbar spine normal to inspection, Yes paraspinal tenderness (improving) bilaterally in the upper thoracic and in the mid thoracic and on the right greater than left (lumbopelvic), Yes thoraco-lumbar spasm bilaterally (trap) in the upper thoracic and in the mid thoracic, on the right greater than left (piriformis) and on the left greater than right (lumbar paraspinal) and Yes misalignment T3, T4, T5, L2, L3, L4, L5 and RIL Sacroiliac joints: on the right tender to palpation Office Procedures Procedures - Chiropractic Procedures Manipulation: Cervical C6, Lumbar L3, Thoracic T4 and Pelvis RIL Manipulation: 3-4 regions Electronic Stimulation: Yes Electrical Stimulation: Lumbar 15 mins (17) mA Therapy Performed by:: Neva Villa Traction, Mechanical: Yes Patient Response: positive Assessment and Plan Assessment and Plan (1) Segmental and somatic dysfunction of lumbar region: Status: Acute (2) Segmental and somatic dysfunction of thoracic region: Status: Acute (3) Segmental and somatic dysfunction of pelvic region: Status: Acute (4) Segmental and somatic dysfunction of cervical region: Status: Acute (5) Spinal stenosis of lumbar region: Status: Chronic Qualifiers: Neurogenic claudication status: without neurogenic claudication Qualified Code(s): M48.061 - Spinal stenosis, lumbar region without neurogenic claudication Comment: L4/L5 (6) Back pain: Status: Acute Qualifiers: Back pain location: low back pain Chronicity: acute Back pain laterality: bilateral Sciatica presence: without sciatica Qualified Code(s): M54.50 - Low back pain, unspecified Orders: Orders Chiropractic Treatments Today M48.061 - Spinal stenosis, lumbar region without neurogenic claudication, M54.16 - Radiculopathy, lumbar region, M99.01 - Segmental and somatic dysfunction of cervical region, M99.02 - Segmental and somatic dysfunction of thoracic region, M99.03 - Segmental and somatic dysfunction of lumbar region, M99.05 - Segmental and somatic dysfunction of pelvic region Plan Patient is showing much improvement. He was treated without incident. Plan Details Goals Barriers: Goals Decrease pain and radiculopathy Improve ROM Barriers Prolonged sitting/driving Lumbar stenosis L4/5 Follow Up: 2 x mo (2/2) 1mo Coding Level of Care Code No Charge D (more content not included)... [facility]rop[facility]ic Reporton [address] [facility] [address] [place] [id number] OFFICE VISIT Date of Service: 09/21/24 MR#: [id number] Acct: [id number] Name: DANIELLE CHRISTY Rep #: [id number] : 1960 Provider: JONAH Coon Age/Sex: 64/M Location: [facility] [place] Status: Signed Intake Vital Signs 07/28/24 08:09 Height 5 ft 7 in Intake Visit Reasons: BACK PAIN Chief Complaint: low back pain Is patient in pain?: Yes (low back ) Pain scale (1-10): 2 Allergies No Known Allergies Allergy (Verified 09/21/24 15:59) Medications ???Medication ???Instructions ???Recorded ???Confirmed ???Type acetaminophen 325 mg tablet 325 mg PO PRN PRN Pain 07/19/16 History (Tylenol) Ibuprofen 400 mg PO PRN PRN Pain 01/28/17 History cholecalciferol (vitamin D3) 25 25 mcg PO DAILY 06/27/22 09/21/24 History mcg (1,000 unit) capsule omeprazole 40 mg capsule,delayed 40 mg PO DAILY #90 caps 09/05/22 0 09/21/24 Rx release spacer #1 ea 03/29/23 09/21/24 Rx albuterol 90 mcg-budesonide 80 2 inh inhalation TID PRN shortness 12/17/23 09/21/24 Rx mcg/actuation HFA aerosol inhaler of breath #10.7 grams (Airsupra) azithromycin 250 mg tablet See Rx Instructions PO .COMPLEX #6 04/23/24 09/21/24 Rx tabs prednisone 10 mg tablet 10 mg PO QDAY #30 tabs 06/15/24 Rx lisinopril 20 mg tablet 20 mg PO DAILY hypertension #90 09/21/24 Rx tabs PFSH Medical History H/O Malignant melanoma Pancreatitis sentinel node biopsy Surgical History History of melanoma excision Family History Father Cancer BCC removed from shoulder Other Diabetes History of blood clots Myocardial infarction Skin cancer Social History Smoking Status: Former smoker quit date: 08/21/19 pack-years: 40 Tobacco: How many years used: 40 alcohol intake: current alcohol intake frequency: a few times a month Alcohol type: hard liquor details: seldom substance use type: does not use caffeine: Yes Type: coffee HPI BACK PAIN Chief Complaint: right low back pain Visit Number: 8 Details: Danielle Christy a 64 year old male here to follow up with right low back pain. Pt. states his low back pain is improving. He continues to experience some mild right low back pain but rates it a mild 2/10 today. The pain does intermittently radiate down his right hamstring into his knee but it is very infrequent. He denies new injury, numbness or tingling into his leg. He states the pain worsens with sitting, driving, standing and bending. 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 Pt. reports chiropractic adjustments and E-stim are helpful in relieving his pain and discomfort. Location: low back Duration: intermittent Aggravating or associated factors: bending, standing, sitting/driving Relieving factors: chiro Pain Quality: aching, dull and radiating Exam Musc General: Yes normal posture, normal gait, joint tenderness and decreased range of motion; No muscle weakness Thoracic/Lumber: Yes thoracic and lumbar spine normal to inspection, Yes paraspinal tenderness (improving) bilaterally in the upper thoracic and in the mid thoracic and on the right greater than left (lumbopelvic), Yes thoraco-lumbar spasm bilaterally (trap) in the upper thoracic and in the mid thoracic, on the right greater than left (piriformis) and on the left greater than right (lumbar paraspinal) and Yes misalignment T3, T4, T5, L2, L3, L4, L5 and RIL Sacroiliac joints: on the right tender to palpation Office Procedures Procedures - Chiropractic Procedures Manipulation: Lumbar L3, Thoracic T4 and Pelvis RIL Manipulation: 3-4 regions Electronic Stimulation: Yes Electrical Stimulation: Lumbar 15 mins (34) mA Therapy Performed by:: Neva Villa Traction, Mechanical: Yes Patient Response: positive Assessment and Plan Assessment and Plan (1) Segmental and somatic dysfunction of lumbar region: Status: Acute (2) Segmental and somatic dysfunction of thoracic region: Status: Acute (3) Segmental and somatic dysfunction of pelvic region: Status: Acute (4) Spinal stenosis of lumbar region: Status: Chronic Qualifiers: Neurogenic claudication status: without neurogenic claudication Qualified Code(s): M48.061 - Spinal stenosis, lumbar region without neurogenic claudication Comment: L4/L5 (5) Back pain: Status: Acute Qualifiers: Back pain laterality: bilateral Back pain location: low back pain Chronicity: acute Sciatica presence: without sciatica Qualified Code(s): M54.50 - Low back pain, unspecified Orders: Ord (more content not included)... [facility] Reporton [address] [facility] [address] [place] [id number] OFFICE VISIT Date of Service: 09/09/24 MR#: [id number] Acct: [id number] Name: DANIELLE CHRISTY Rep #: [id number] : 1960 Provider: JONAH Coon Age/Sex: 64/M [place] [facility] Status: Signed Intake Vital Signs 07/28/24 08:09 Height 5 ft 7 in Intake Visit Reasons: BACK PAIN Chief Complaint: low back pain Is patient in pain?: Yes (low back ) Pain scale (1-10): 3 Allergies No Known Allergies Allergy (Verified 09/09/24 08:28) Medications ???Medication ???Instructions ???Recorded ???Confirmed ???Type acetaminophen 325 mg tablet 325 mg PO PRN PRN Pain 07/19/16 History (Tylenol) Ibuprofen 400 mg PO PRN PRN Pain 01/28/17 History cholecalciferol (vitamin D3) 25 25 mcg PO DAILY 06/27/22 09/09/24 History mcg (1,000 unit) capsule omeprazole 40 mg capsule,delayed 40 mg PO DAILY #90 caps 09/05/22 0 09/09/24 Rx release spacer #1 ea 03/29/23 09/09/24 Rx albuterol 90 mcg-budesonide 80 2 inh inhalation TID PRN shortness 12/17/23 09/09/24 Rx mcg/actuation HFA aerosol inhaler of breath #10.7 grams (Airsupra) azithromycin 250 mg tablet See Rx Instructions PO .COMPLEX #6 04/23/24 09/09/24 Rx tabs prednisone 10 mg tablet 10 mg PO QDAY #30 tabs 06/15/24 Rx lisinopril 20 mg tablet 20 mg PO DAILY hypertension #90 09/09/24 Rx tabs PFSH Medical History H/O Malignant melanoma Pancreatitis sentinel node biopsy Surgical History History of melanoma excision Family History Father Cancer BCC removed from shoulder Other Diabetes History of blood clots Myocardial infarction Skin cancer Social History Smoking Status: Former smoker quit date: 08/21/19 pack-years: 40 Tobacco: How many years used: 40 alcohol intake: current alcohol intake frequency: a few times a month Alcohol type: hard liquor details: seldom substance use type: does not use caffeine: Yes Type: coffee HPI BACK PAIN Chief Complaint: right low back pain Visit Number: 7 Details: Danielle Christy a 64 year old male here to follow up with right low back pain. Pt. states his low back pain is improving. He continues to experience some mild right low back pain but reports it is very minimal. The pain does intermittently radiate down his right hamstring into his knee but it is very infrequent. He denies new injury, numbness or tingling into his leg. He rates his pain 3/10. He states the pain worsens with sitting, driving, standing and bending. 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 Pt. reports chiropractic adjustments and E-stim are helpful in relieving his pain and discomfort. Location: low back Duration: intermittent Aggravating or associated factors: bending, standing, sitting/driving Relieving factors: chiro Pain Quality: aching, dull and radiating Exam Musc General: Yes normal posture, normal gait, joint tenderness and decreased range of motion; No muscle weakness Thoracic/Lumber: Yes thoracic and lumbar spine normal to inspection, Yes paraspinal tenderness (improving) bilaterally in the upper thoracic and in the mid thoracic and on the right greater than left (lumbopelvic), Yes thoraco-lumbar spasm bilaterally (trap) in the upper thoracic and in the mid thoracic, on the right greater than left (piriformis) and on the left greater than right (lumbar paraspinal) and Yes misalignment T3, T4, T5, L2, L3, L4, L5 and RIL Sacroiliac joints: on the right tender to palpation Office Procedures Procedures - Chiropractic Procedures Manipulation: Lumbar L3, Thoracic T4 and Pelvis RIL Manipulation: 3-4 regions Electronic Stimulation: Yes Electrical Stimulation: Lumbar 15 mins (24) mA Therapy Performed by:: Neva Villa Traction, Mechanical: Yes Patient Response: positive Assessment and Plan Assessment and Plan (1) Segmental and somatic dysfunction of lumbar region: Status: Acute (2) Segmental and somatic dysfunction of thoracic region: Status: Acute (3) Radiculopathy of lumbar region: Status: Acute (4) Segmental and somatic dysfunction of pelvic region: Status: Acute (5) Spinal stenosis of lumbar region: Status: Chronic Qualifiers: Neurogenic claudication status: without neurogenic claudication Qualified Code(s): M48.061 - Spinal stenosis, lumbar region without neurogenic claudication Comment: L4/L5 Orders: Orders Chiropractic Treatments Today M54.16 - Radiculopathy, lumbar region, M99.02 - Segmental and somatic dysfunction of thoracic region, M99. (more content not included)... [facility] Reporton [address] [facility] [address] [place] [address] OFFICE VISIT Date of Service: 09/01/24 MR#: [id number] Acct: [id number] Name: JAELYNDANIELLE ESCALANTENE Rep #: [id number] : 1960 Provider: JONAH Coon Age/Sex: 63/M [place] [facility] [place] Status: Signed Intake Vital Signs 07/28/24 08:09 Height 5 ft 7 in Intake Visit Reasons: BACK PAIN Chief Complaint: low back pain Is patient in pain?: Yes (Right low back) Pain scale (1-10): 1 Allergies No Known Allergies Allergy (Verified 09/01/24 08:12) Medications ???Medication ???Instructions ???Recorded ???Confirmed ???Type acetaminophen 325 mg tablet 325 mg PO PRN PRN Pain 07/19/16 History (Tylenol) Ibuprofen 400 mg PO PRN PRN Pain 01/28/17 History cholecalciferol (vitamin D3) 25 25 mcg PO DAILY 03/08/23 05/13/25 History mcg (1,000 unit) capsule omeprazole 40 mg capsule,delayed 40 mg PO DAILY #90 caps 09/05/22 0 09/01/24 Rx release spacer #1 ea 03/29/23 09/01/24 Rx albuterol 90 mcg-budesonide 80 2 inh inhalation TID PRN shortness 12/17/23 09/01/24 Rx mcg/actuation HFA aerosol inhaler of breath #10.7 grams (Airsupra) azithromycin 250 mg tablet See Rx Instructions PO .COMPLEX #6 04/23/24 09/01/24 Rx tabs prednisone 10 mg tablet 10 mg PO QDAY #30 tabs 06/15/24 Rx lisinopril 20 mg tablet 20 mg PO DAILY hypertension #90 09/01/24 Rx tabs PFSH Medical History H/O Malignant melanoma Pancreatitis sentinel node biopsy Surgical History History of melanoma excision Family History Father Cancer BCC removed from shoulder Other Diabetes History of blood clots Myocardial infarction Skin cancer Social History Smoking Status: Former smoker quit date: 08/21/19 pack-years: 40 Tobacco: How many years used: 40 alcohol intake: current alcohol intake frequency: a few times a month Alcohol type: hard liquor details: seldom substance use type: does not use caffeine: Yes Type: coffee HPI BACK PAIN Chief Complaint: right low back pain Visit Number: 6 Details: Danielle Christy a 63 year old male here to follow up with right low back pain. He continues to notice improvement in his low back pain. He still is experiencing right low back pain but reports it is very minimal. The pain does intermittently radiate down his right hamstring into his knee but it is very infrequent. He is not experiencing any numbness or tingling into his leg. He rates his pain 1/10. He states the pain worsens with sitting, driving, standing and bending. 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 He denies new injury. Pt. reports chiropractic adjustments and E-stim give him some relief of his pain and discomfort. Location: low back Duration: intermittent Aggravating or associated factors: bending, standing, sitting/driving Relieving factors: chiro Pain Quality: aching, dull and radiating Exam Musc General: Yes normal posture, normal gait, joint tenderness and decreased range of motion; No muscle weakness Thoracic/Lumber: Yes thoracic and lumbar spine normal to inspection, Yes paraspinal tenderness (improving) bilaterally in the upper thoracic and in the mid thoracic and on the right greater than left (lumbopelvic), Yes thoraco-lumbar spasm bilaterally (trap) in the upper thoracic and in the mid thoracic, on the right greater than left (piriformis) and on the left greater than right (lumbar paraspinal) and Yes misalignment T3, T4, T5, L2, L3, L4, L5 and RIL Sacroiliac joints: on the right tender to palpation Office Procedures Procedures - Chiropractic Procedures Manipulation: Lumbar L3, Thoracic T4 and Pelvis RIL Manipulation: 3-4 regions Electronic Stimulation: Yes Electrical Stimulation: Lumbar 15 mins (28) mA Therapy Performed by:: Hayley Bowen Hot and/or cold packs: Yes Patient Response: positive Assessment and Plan Assessment and Plan (1) Segmental and somatic dysfunction of lumbar region: Status: Acute (2) Segmental and somatic dysfunction of thoracic region: Status: Acute (3) Segmental and somatic dysfunction of pelvic region: Status: Acute (4) Spinal stenosis of lumbar region: Status: Acute Qualifiers: Neurogenic claudication status: without neurogenic claudication Qualified Code(s): M48.061 - Spinal stenosis, lumbar region without neurogenic claudication Comment: L4/L5 (5) Back pain: Status: Acute Qualifiers: Back pain location: low back pain Chronicity: acute Back pain laterality: right Sciatica presence: without sciatica Qualified Cod (more content not included)... [facility] Reporton [address] [facility] [facility] [address] [place] [address] [id number] OFFICE VISIT Date of Service: 08/27/24 MR#: [id number] Acct: [id number] Name: DANIELLE CHRISTY Rep #: [id number] : 1960 Provider: JONAH Coon Age/Sex: 63/M [place] [facility] Status: Signed Intake Vital Signs 07/28/24 08:09 Height 5 ft 7 in Weight: 220 lb BMI 34.4 BP 138/78 H Intake Visit Reasons: BACK PAIN Chief Complaint: low back pain Is patient in pain?: Yes (R Low back) Pain scale (1-10): 3 Allergies No Known Allergies Allergy (Verified 08/27/24 12:14) Medications ???Medication ???Instructions ???Recorded ???Confirmed ???Type acetaminophen 325 mg tablet 325 mg PO PRN PRN Pain 07/19/16 History (Tylenol) Ibuprofen 400 mg PO PRN PRN Pain 01/28/17 History cholecalciferol (vitamin D3) 25 25 mcg PO DAILY 06/27/22 08/27/24 History mcg (1,000 unit) capsule omeprazole 40 mg capsule,delayed 40 mg PO DAILY #90 caps 09/05/22 0 08/27/24 Rx release spacer #1 ea 03/29/23 08/27/24 Rx albuterol 90 mcg-budesonide 80 2 inh inhalation TID PRN shortness 12/17/23 08/27/24 Rx mcg/actuation HFA aerosol inhaler of breath #10.7 grams (Airsupra) azithromycin 250 mg tablet See Rx Instructions PO .COMPLEX #6 04/23/24 08/27/24 Rx tabs prednisone 10 mg tablet 10 mg PO QDAY #30 tabs 06/15/24 Rx lisinopril 20 mg tablet 20 mg PO DAILY hypertension #90 08/27/24 Rx tabs PFSH Medical History H/O Malignant melanoma Pancreatitis sentinel node biopsy Surgical History History of melanoma excision Family History Father Cancer BCC removed from shoulder Other Diabetes History of blood clots Myocardial infarction Skin cancer Social History Smoking Status: Former smoker quit date: 08/21/19 pack-years: 40 Tobacco: How many years used: 40 alcohol intake: current alcohol intake frequency: a few times a month Alcohol type: hard liquor details: seldom substance use type: does not use caffeine: Yes Type: coffee HPI BACK PAIN Chief Complaint: right low back pain Visit Number: 5 Details: Danielle Christy a 63 year old male here to follow up with right low back pain. He states he has noticed improvement in his pain since his last adjustment. He still complains of right sided low back pain. The pain does intermittently radiate down his right hamstring into his knee but this is becoming less and less frequent. He is not experiencing any numbness or tingling into his leg. He rates his pain 3/10. He states the pain worsens with sitting, driving, standing and bending. 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 He denies new injury. Pt. reports chiropractic adjustments and E-stim give him some relief of his pain and discomfort. Location: low back Duration: frequent Aggravating or associated factors: bending, standing, sitting/driving Relieving factors: chiro Pain Quality: aching, dull and radiating Exam Musc General: Yes normal posture, normal gait, joint tenderness and decreased range of motion; No muscle weakness Thoracic/Lumber: Yes thoracic and lumbar spine normal to inspection, Yes paraspinal tenderness bilaterally in the upper thoracic and in the mid thoracic and on the right greater than left (lumbopelvic), Yes thoraco-lumbar spasm bilaterally (trap) in the upper thoracic and in the mid thoracic, on the right greater than left (piriformis) and on the left greater than right (lumbar paraspinal) and Yes misalignment T3, T4, T5, L2, L3, L4, L5 and RIL Sacroiliac joints: on the right tender to palpation Office Procedures Procedures - Chiropractic Procedures Manipulation: Lumbar L3, Thoracic T4 and Pelvis RIL Manipulation: 3-4 regions Electronic Stimulation: Yes Electrical Stimulation: Lumbar 15 mins (21) mA Therapy Performed by:: Hayley Larios, Mechanical: Yes Hot and/or cold packs: Yes Patient Response: positive Assessment and Plan Assessment and Plan (1) Segmental and somatic dysfunction of lumbar region: Status: Acute (2) Segmental and somatic dysfunction of thoracic region: Status: Acute (3) Segmental and somatic dysfunction of pelvic region: Status: Acute (4) Spinal stenosis of lumbar region: Status: Acute Qualifiers: Neurogenic claudication status: without neurogenic claudication Qualified Code(s): M48.061 - Spinal stenosis, lumbar region without neurogenic claudication Comment: L4/L5 Orders: Orders Chiropractic Treatments Today M48.061 - Spinal stenosis, lumbar region without neurogenic (more content not included)... [facility] Reporton [address] [facility] [address] [place] [id number] OFFICE VISIT Date of Service: 08/19/24 MR#: [id number] Acct: [id number] Name: DANIELLE CHRISTY Rep #: [id number] : 1960 Provider: JONAH Coon Age/Sex: 63/M [place] [facility] Status: Signed Intake Vital Signs 07/28/24 08:09 Height 5 ft 7 in Weight: 220 lb BMI 34.4 BP 138/78 H Intake Visit Reasons: BACK PAIN Chief Complaint: low back pain Is patient in pain?: Yes (right low back ) Pain scale (1-10): 2 Allergies No Known Allergies Allergy (Verified 08/19/24 11:01) Medications ???Medication ???Instructions ???Recorded ???Confirmed ???Type acetaminophen 325 mg tablet 325 mg PO PRN PRN Pain 07/19/16 History (Tylenol) Ibuprofen 400 mg PO PRN PRN Pain 01/28/17 History cholecalciferol (vitamin D3) 25 25 mcg PO DAILY 06/27/22 08/19/24 History mcg (1,000 unit) capsule omeprazole 40 mg capsule,delayed 40 mg PO DAILY #90 caps 09/05/22 0 08/19/24 Rx release spacer #1 ea 03/29/23 08/19/24 Rx lisinopril 20 mg tablet 20 mg PO DAILY PRN 12/16/23 History albuterol 90 mcg-budesonide 80 2 inh inhalation TID PRN shortness 12/17/23 08/19/24 Rx mcg/actuation HFA aerosol inhaler of breath #10.7 grams (Airsupra) azithromycin 250 mg tablet See Rx Instructions PO .COMPLEX #6 04/23/24 08/19/24 Rx tabs prednisone 10 mg tablet 10 mg PO QDAY #30 tabs 06/15/24 Rx PFSH Medical History H/O Malignant melanoma Pancreatitis sentinel node biopsy Surgical History History of melanoma excision Family History Father Cancer BCC removed from shoulder Other Diabetes History of blood clots Myocardial infarction Skin cancer Social History Smoking Status: Former smoker quit date: 08/21/19 pack-years: 40 Tobacco: How many years used: 40 alcohol intake: current alcohol intake frequency: a few times a month Alcohol type: hard liquor details: seldom substance use type: does not use caffeine: Yes Type: coffee HPI BACK PAIN Chief Complaint: right low back pain Visit Number: 4 Details: Danielle Christy a 63 year old male here to follow up with right low back pain. Pt. advises his last adjustment was somewhat helpful in giving him some relief of his low back pain. He rates his right sided low back pain and stiffness 2/10 but increases with activity. The pain does intermittently radiate down his right hamstring into his knee. He also experiences occasional numbness and tingling into his right leg. He states the pain worsens with sitting, driving, standing and bending. 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 He denies new injury. Pt. reports chiropractic adjustments and E-stim give him some relief of his pain and discomfort. Location: low back Duration: frequent Aggravating or associated factors: bending, standing, sitting/driving Relieving factors: chiro Pain Quality: aching, dull and radiating Exam Musc General: Yes normal posture, normal gait, joint tenderness and decreased range of motion; No muscle weakness Thoracic/Lumber: Yes thoracic and lumbar spine normal to inspection, Yes paraspinal tenderness bilaterally in the upper thoracic and in the mid thoracic and on the right greater than left (lumbo pelvic), Yes thoraco-lumbar spasm bilaterally (trap) in the upper thoracic and in the mid thoracic, on the right greater than left (piriformis) and on the left greater than right (lumbar paraspinal) and Yes misalignment T3, T4, T5, L2, L3, L4, L5 and RIL Sacroiliac joints: on the right tender to palpation Office Procedures Procedures - Chiropractic Procedures Manipulation: Lumbar L3, Thoracic T4 and Pelvis RIL Manipulation: 3-4 regions Electronic Stimulation: Yes Electrical Stimulation: Lumbar 15 mins (21) mA Therapy Performed by:: Neva Villa Traction, Mechanical: Yes Patient Response: positive Assessment and Plan Assessment and Plan (1) Segmental and somatic dysfunction of lumbar region: Status: Acute (2) Segmental and somatic dysfunction of thoracic region: Status: Acute (3) Radiculopathy of lumbar region: Status: Acute (4) Segmental and somatic dysfunction of pelvic region: Status: Acute (5) Spinal stenosis of lumbar region: Status: Acute Qualifiers: Neurogenic claudication status: without neurogenic claudication Qualified Code(s): M48.061 - Spinal stenosis, lumbar region without neurogenic claudication Comment: L4/L5 Orders: Orders Chiropractic Treatments 08/19/24 M48.061 - Spinal stenosis, lumbar region (more content not included)... [facility] Reporton [address] [facility] [address] [place] [address] OFFICE VISIT Date of Service: 08/12/24 MR#: [id number] Acct: [id number] Name: DANIELLE CHRISTY Rep #: [id number] : 1960 Provider: JONAH Coon Age/Sex: 63/M Location: [facility] [place] Status: Signed Intake Vital Signs 07/28/24 08:09 Height 5 ft 7 in Weight: 220 lb BMI 34.4 BP 138/78 H Intake Visit Reasons: BACK PAIN Chief Complaint: low back pain Is patient in pain?: Yes (Right low back) Pain scale (1-10): 2 Allergies No Known Allergies Allergy (Verified 08/12/24 08:33) Medications ???Medication ???Instructions ???Recorded ???Confirmed ???Type acetaminophen 325 mg tablet 325 mg PO PRN PRN Pain 07/19/16 History (Tylenol) Ibuprofen 400 mg PO PRN PRN Pain 01/28/17 History cholecalciferol (vitamin D3) 25 25 mcg PO DAILY 06/27/22 08/12/24 History mcg (1,000 unit) capsule omeprazole 40 mg capsule,delayed 40 mg PO DAILY #90 caps 09/05/22 0 08/12/24 Rx release spacer #1 ea 03/29/23 08/12/24 Rx lisinopril 20 mg tablet 20 mg PO DAILY PRN 12/16/23 History albuterol 90 mcg-budesonide 80 2 inh inhalation TID PRN shortness 12/17/23 08/12/24 Rx mcg/actuation HFA aerosol inhaler of breath #10.7 grams (Airsupra) azithromycin 250 mg tablet See Rx Instructions PO .COMPLEX #6 04/23/24 08/12/24 Rx tabs prednisone 10 mg tablet 10 mg PO QDAY #30 tabs 06/15/24 Rx PFSH Medical History H/O Malignant melanoma Pancreatitis sentinel node biopsy Surgical History History of melanoma excision Family History Father Cancer BCC removed from shoulder Other Diabetes History of blood clots Myocardial infarction Skin cancer Social History Smoking Status: Former smoker quit date: 08/21/19 pack-years: 40 Tobacco: How many years used: 40 alcohol intake: current alcohol intake frequency: a few times a month Alcohol type: hard liquor details: seldom substance use type: does not use caffeine: Yes Type: coffee HPI BACK PAIN Chief Complaint: right low back pain Visit Number: 3 Details: Danielle IsabelJaelyn a 63 year old male here to follow up with right low back pain. Pt. advises his last adjustment was helpful in relieving his low back pain but it has gradually returned. He complains of right sided low back pain and stiffness. The pain does intermittently radiate down his right leg into his knee. He also experiences occasional numbness and tingling into his right leg. He rates his pain 2/10. He states the pain is worse with sitting, driving, standing and bending. 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 He denies new injury. Pt. reports chiropractice adjustments have been effective in relieving his pain and discomfort in the past. Location: low back Duration: frequent Aggravating or associated factors: bending, standing, sitting/driving Relieving factors: chiro Pain Quality: aching, dull and radiating Exam Musc General: Yes normal posture, normal gait, joint tenderness and decreased range of motion; No muscle weakness Thoracic/Lumber: Yes thoracic and lumbar spine normal to inspection, Yes paraspinal tenderness bilaterally in the upper thoracic and in the mid thoracic and on the right greater than left (lumbopelvic), Yes thoraco-lumbar spasm bilaterally (trap) in the upper thoracic and in the mid thoracic, on the right greater than left (piriformis) and on the left greater than right (lumbar paraspinal) and Yes misalignment T3, T4, T5, L2, L3, L4, L5 and RIL Sacroiliac joints: on the right tender to palpation Office Procedures Procedures - Chiropractic Procedures Manipulation: Lumbar L3, Thoracic T4 and Pelvis RIL Manipulation: 3-4 regions Electronic Stimulation: Yes Electrical Stimulation: Lumbar 15 mins (20) mA Therapy Performed by:: Hayley Bowen Hot and/or cold packs: Yes Patient Response: positive Assessment and Plan Assessment and Plan (1) Spinal stenosis at L4-L5 level: Status: Chronic (2) Segmental and somatic dysfunction of lumbar region: Status: Acute (3) Segmental and somatic dysfunction of thoracic region: Status: Acute (4) Segmental and somatic dysfunction of pelvic region: Status: Acute Orders: Orders Chiropractic Treatments Today M48.061 - Spinal stenosis, lumbar region without neurogenic claudication, M99.02 - Segmental and somatic dysfunction of thoracic region, M99.03 - Segmental and somatic dysfunction of lumbar region, M99.05 - Segmental and somatic dysfunction of pelvic region Plan Tonya (more content not included)... [facility] Reporton [address] [facility] [address] [place] [address] OFFICE VISIT Date of Service: 08/04/24 MR#: [id number] Acct: [id number] Name: DANIELLE CHRISTY Rep #: [id number] : 1960 Provider: JONAH Coon Age/Sex: 63/M Location: [facility] [place] Status: Signed Intake Vital Signs 07/28/24 08:09 Height 5 ft 7 in Weight: 220 lb BMI 34.4 BP 138/78 H Intake Visit Reasons: BACK PAIN Chief Complaint: low back pain Allergies No Known Allergies Allergy (Verified 07/28/24 08:10) PFSH Medical History H/O Malignant melanoma Pancreatitis sentinel node biopsy Surgical History History of melanoma excision Family History Father Cancer BCC removed from shoulder Other Diabetes History of blood clots Myocardial infarction Skin cancer Social History Smoking Status: Former smoker quit date: 08/21/19 pack-years: 40 Tobacco: How many years used: 40 alcohol intake: current alcohol intake frequency: a few times a month Alcohol type: hard liquor details: seldom substance use type: does not use caffeine: Yes Type: coffee HPI BACK PAIN Chief Complaint: right low back pain Visit Number: 2 Details: Danielle Christy a 63 year old male here to follow up with right low back pain. Pt. advises his last adjustment was not helpful in relieving his low back pain. He states it has not worsened but has not improved. He states his low back pain is worse on the right side and is radiating down his right leg to his knee. He rates his pain 3/10 today. He also c/o intermittent right leg tingling as well. He states the pain is worse with standing and bending. 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 He denies new injury. Pt. reports chiropractice adjustments have been effective in relieving his pain and discomfort in the past. Location: low back Duration: constant Aggravating or associated factors: bending, standing, sitting Relieving factors: chiro Pain Quality: aching and dull Exam Musc General: Yes normal posture, normal gait, joint tenderness and decreased range of motion; No muscle weakness Thoracic/Lumber: Yes thoracic and lumbar spine normal to inspection, Yes paraspinal tenderness bilaterally in the upper thoracic and in the mid thoracic and on the right greater than left (lumbopelvic), Yes thoraco-lumbar spasm bilaterally (trap) in the upper thoracic and in the mid thoracic, on the right greater than left (piriformis) and on the left greater than right (lumbar paraspinal) and Yes misalignment T3, T4, T5, L2, L3, L4, L5 and RIL Sacroiliac joints: on the right tender to palpation Office Procedures Procedures - Chiropractic Procedures Manipulation: Lumbar L3, Thoracic T4 and Pelvis RIL Manipulation: 3-4 regions Electronic Stimulation: Yes Electrical Stimulation: Lumbar 15 mins (30) mA Therapy Performed by:: Neva Villa Patient Response: positive Assessment and Plan Assessment and Plan (1) Spinal stenosis at L4-L5 level: Status: Chronic (2) Segmental and somatic dysfunction of lumbar region: Status: Acute (3) Segmental and somatic dysfunction of thoracic region: Status: Acute (4) Segmental and somatic dysfunction of pelvic region: Status: Acute Orders: Orders Chiropractic Treatments Today M48.061 - Spinal stenosis, lumbar region without neurogenic claudication, M54.16 - Radiculopathy, lumbar region, M99.02 - Segmental and somatic dysfunction of thoracic region, M99.03 - Segmental and somatic dysfunction of lumbar region, M99.05 - Segmental and somatic dysfunction of pelvic region Plan Patient was treated without incident. Added EMS to help decrease inflammation and improve blood flow. Continue care. Plan Details Goals Barriers: Goals Decrease pain and radiculopathy Improve ROM Target Due Date 08/25/24 Barriers Prolonged sitting/driving Lumbar stenosis L4/5 Follow Up: 1 x wk x 4 wks (2/) Coding Level of Care Code No Charge Diagnoses Spinal stenosis at L4-L5 level M48.061 Segmental and somatic dysfunction of lumbar region M99.03 Segmental and somatic dysfunction of thoracic region M99.02 Segmental and somatic dysfunction of pelvic region M99.05 CPT Codes Procedures - Manipulation: 3-4 regions ([id number]) Procedures - Electronic Stimulation: Yes ([id number]) 08/04/24 1110 Date Indy Reid Signature: Date (if applicable) CC: [facility] Reporton 2024 Chiropractic Report [facility] [address] [place] [address] OFFICE VISIT Date of Service: 07/28/24 MR#: [id number] Acct: [id number] Name: DANIELLE CHRISTY Rep #: [id number] : 1960 Provider: JONAH Putnam Do ssi Age/Sex: 63/M [place] [facility] Status: Signed Intake Vital Signs 02/10/24 15:21 06/30/24 09:14 07/28/24 08:09 Height 5 ft 7 in 5 ft 7 in 5 ft 7 in Weight: 209 lb 9 oz 220 lb BMI 32.8 34.4 BP 108/67 138/78 H Blood Pressure Location Lt brachial Position Sitting Respiration 18 Pulse 56 L Pulse Source Monitor Temp 98.4 F Pulse Oximetry (%) 98 Oxygen Delivery Method room air Intake Visit Reasons: REEVAL Chief Complaint: low back pain Is patient in pain?: Yes (low back ) Pain scale (1-10): 3 Allergies No Known Allergies Allergy (Verified 07/28/24 08:10) Medications ???Medication ???Instructions ???Recorded ???Confirmed ???Type acetaminophen 325 mg tablet 325 mg PO PRN PRN Pain 07/19/16 History (Tylenol) Ibuprofen 400 mg PO PRN PRN Pain 01/28/17 History cholecalciferol (vitamin D3) 25 25 mcg PO DAILY 06/27/22 07/28/24 History mcg (1,000 unit) capsule omeprazole 40 mg capsule,delayed 40 mg PO DAILY #90 caps 09/05/22 0 07/28/24 Rx release spacer #1 ea 03/29/23 07/28/24 Rx lisinopril 20 mg tablet 20 mg PO DAILY PRN 12/16/23 History albuterol 90 mcg-budesonide 80 2 inh inhalation TID PRN shortness 12/17/23 07/28/24 Rx mcg/actuation HFA aerosol inhaler of breath #10.7 grams (Airsupra) azithromycin 250 mg tablet See Rx Instructions PO .COMPLEX #6 04/23/24 07/28/24 Rx tabs prednisone 10 mg tablet 10 mg PO QDAY #30 tabs 06/15/24 Rx PFSH Medical History H/O Malignant melanoma Pancreatitis sentinel node biopsy Surgical History History of melanoma excision Family History Father Cancer BCC removed from shoulder Other Diabetes History of blood clots Myocardial infarction Skin cancer Social History Smoking Status: Former smoker quit date: 08/21/19 pack-years: 40 Tobacco: How many years used: 40 alcohol intake: current alcohol intake frequency: a few times a month Alcohol type: hard liquor details: seldom substance use type: does not use caffeine: Yes Type: coffee HPI REEVAL Chief Complaint: low back pain Visit Number: 1 Details: Danielle Christy a 63 year old male here for a re-evaluation of back pain. on low back pain. Pt. advises his low back pain flared up over a month ago and has progressively worsened. He states his low back pain is worse on the right side and is radiating down his right leg. He also c/o intermittent right leg tingling as well. He states the pain is worse with standing and bending. He rates his pain 3/10 today. 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 He denies new injury, numbness, tingling or radiculopathy. Pt. reports chiropractice adjustments are effective in relieving his pain and discomfort but it gradually returns. Onset: 06/22/24 Location: low back Duration: constant Aggravating or associated factors: bending, standing,driving Relieving factors: chiro Pain Quality: aching, dull and radiating Exam Musc General: Yes normal posture, normal gait, joint tenderness and decreased range of motion; No muscle weakness Thoracic/Lumber: Yes thoracic and lumbar spine normal to inspection, Yes straight leg raise negative bilaterally, Yes Lasegue's sign positive bilaterally, Yes pain with thoraco-lumbar ROM with forward flexion, with lateral flexion to the right, with lateral flexion to the left, with rotation to the right and with rotation to the left, Yes paraspinal tenderness bilaterally in the upper thoracic and in the mid thoracic and on the right greater than left (lumbopelvic), Yes thoraco-lumbar ROM limited with forward flexion, with lateral flexion to the right, with lateral flexion to the left, with rotation to the right and with rotation to the left, Yes thoraco-lumbar spasm bilaterally (trap) in the upper thoracic and in the mid thoracic, on the right greater than left (piriformis) and on the left greater than right (lumbar paraspinal) and Yes misalignment T3, T4, T5, L2, L3, L4, L5 and RIL Sacroiliac joints: on the right tender to palpation Office Procedures Procedures - Chiropractic Procedures Manipulation: Lumbar L3, Thoracic T4 and Pelvis RIL Manipulation: 3-4 regions Traction, Mechanical: Yes Patient Response: positive Assessment and Plan Assessment and Plan (1) Segmental and somatic dysfunction of lum (more content not included)... [facility] Reporton 0 04-27-2024 Urgent Care Visit Report 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 Allergies No Known Allergies Allergy (Verified 02/10/24 15:24) PFSH Medical History H/O Malignant melanoma Pancreatitis sentinel node biopsy Surgical History History of melanoma excision Family History Father Cancer BCC removed from shoulder Other Diabetes History of blood clots Myocardial infarction Skin cancer Social History Smoking Status: Former smoker quit date: 08/21/19 pack-years: 40 Tobacco: How many years used: 40 alcohol intake: current alcohol intake frequency: a few times a month Alcohol type: hard liquor details: seldom substance use type: does not use caffeine: Yes Type: coffee HPI HPI Chief Complaint: F/u for Melanoma. 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 Chloride [Moles/Vol] 105 mmol/L 98-107 [facility] Eosinophils/100 WBC (Bld) 1.0 % 0-5 [facility] Glucose [Mass/Vol] 102 mg/dL 74-106 [facility] Comment on above: Fasting Glucose resu lt from 100 to 125 mg/dL suggests IMPAIRED HOMEOSTASIS per A.D.A. criteria. LDH [Catalytic activity/Vol] 242 U/L 87-241 [facility] Neutrophils (Bld) [#/Vol] 2.7 10*3/uL 2.0-7.7 [facility] Neutrophils/100 WBC (Bld) 56.6 % 47-70 [facility] Potassium [Moles/Vol] 4.4 mmol/L 3.5-5.1 [facility] Protein [Mass/Vol] 7.1 g/dL 6.4-8.2 [facility] Sodium [Moles/Vol] 136 mmol/L 136-145 [facility] WBC (Bld) [#/Vol] 4.8 10*3/uL 4.4-11.0 [facility] Blood erythrocytes count (nu mber/volume)Ordered By: Jesus Hogan on 10-24-2022 RBC (Bld) [#/Vol] 4.44 10*6/uL 4.6-6.2 [facility] Blood hemoglobin measurement (mass/volume)Ordered By: Jesus Hogan on 10-24-2022 Hemoglobin (Bld) [Mass/Vol] 13.5 g/dL 13.0-16.5 [facility] Blood lymphocytes/100 leukoc ytesOrdered By: Jesus Hogan on 10-24-2022 Lymphocytes/100 WBC (Bld) 28.8 % 19-41 [facility] Blood monocytes/100 leukocyt esOrdered By: Jesus Hogan on 10-24-2022 Monocytes/100 WBC (Bld) 12.2 % 0-10 [facility] Blood platelet mean volumeOr dered By: Jesus Hogan on 10-24-2022 Platelet mean volume (Bld) [Entitic vol] 9.1 fL 6.2-12.0 [facility] Determination of erythrocyte mean corpuscular volume (MCV)Ordered By: Jesus Hogan on 10-24-2022 MCV (RBC) [Entitic vol] 93.2 fL 80-94 [facility] Hematocrit Auto (Bld) [Volum e fraction]Ordered By: Jseus Samira on 10-24-2022 Hematocrit (Bld) [Volume fraction] 41.4 % 40-54 [facility] Laboratory - Chemistry and C hemistry - challengeOrdered By: Jesus Samira on 10-24-2022 ALP [Catalytic activity/Vol] 77 U/L 45-117 [facility] ALT [Catalytic activity/Vol] 68 U/L 16-61 [facility] CO2 [Moles/Vol] 25.0 mmol/L 21.0-32.0 [facility] Globulin (S) [Mass/Vol] 3.6 g/dL 2.2-4.2 [facility] Urea nitrogen/Creatinine [Mass ratio] 14.7 mg/mg 10-20 [facility] - Hematology and Cell countsOrdered By: Jesus Hogan on 10-24-2022 Erythrocyte distribution width (RBC) [Entitic vol] 41.8 fL 35.1-43.9 [facility] Erythrocyte distribution width (RBC) [Ratio] 12.1 % 11.6-14.6 [facility] Immature granulocytes/100 WBC (Bld) 0.800 % 0.0-0.9 [facility] Comment on above: IG% - Immature Granu locytes (promyelocytes, myelocytes and metamyelocytes) > 1% indicates that a LEFT SHIFT is Present. MCH (RBC) [Entitic mass] 30.4 pg 27.0-32.0 [facility] Nucleated RBC/100 WBC (Bld) [Ratio] 0 % 0-5 [facility] MCHC Auto (RBC) [Mass/Vol]Or dered By: Jesus Hogan on 10-24-2022 MCHC (RBC) [Mass/Vol] 32.6 g/dL 32-36 [facility] No Panel InformationOrdered By: Jesus Hogan on 10-24-2022 Estimated Creatinine Clearance Calc 54.00 ml/min [facility] Estimated GFR (MDRD) Amer 69 mL/min >60 [facility] Comment on above: GFR Calc Estimated GFR (MDRD) Non-Af Amer 57 mL/min >60 [facility] Comment on above: Non- GFR Calc Platelets bldOrdered By: Devin Hogan on 10-24-2022 Platelets (Bld) [#/Vol] 200 10*3/uL 150-450 [facility] Serum or plasma albumin jessica urement (mass/volume)Ordered By: Jesus Hogan on 10-24-2022 Albumin [Mass/Vol] 3.5 g/dL 3.2-5.0 [facility] Serum or plasma albumin/glob ulin mass ratioOrdered By: Jesus Hogan on 10-24-2022 Albumin/Globulin [Mass ratio] 1.0 {ratio} 0.9-2.4 [facility] Serum or plasma calcium jessica urement (mass/volume)Ordered By: Jesus Hogan on 10-24-2022 Calcium [Mass/Vol] 8.8 mg/dL 8.5-10.1 [facility] Serum or plasma creatinine m easurement (mass/volume)Ordered By: Jesus Hogan on 10-24-2022 Creatinine [Mass/Vol] 1.36 mg/dL 0.70-1.30 [facility] Comment on above: The validity of the calculated GFR & GFRAA in patients over 70 years has not been determined. Clinical correlation is essential. Serum or plasma urea nitroge n measurement (mass/volume)Ordered By: Jesus Hogan on 10-24-2022 Urea nitrogen [Mass/Vol] 20 mg/dL 7-18 [facility] Thin prep Papanicolaou smear with manual screeningOrdered By: Jesus Hogan on 10-24-2022 Thin prep Papanicolaou smear with manual screening 40 U/L 15-37 [facility] Thin prep Papanicolaou smear with manual screening 6 5-15 [facility] Basophil percentageOrdered B y: Dr. Friedman on 06-26-2022 Cholesterol [Mass/Vol] 248 mg/dL <200 [facility] Comment on above: <200 mg/dL Desirable 200-240 mg/dL Borderline >240 mg/dL High Risk Triglyceride [Mass/Vol] 88 mg/dL <199 [facility] Comment on above: The drugs N-Acetylcy steine and Metamizole may falsely depress this assay.Serum Triglycerides Reference Interval Normal <150 mg/dL Borderline high 150 - 199 mg/dL High 200 - 499 mg/dL Very High > or = 500 mg/dL No Panel InformationOrdered By: Dr. Friedman on 06-26-2022 Prostate Specific Antigen Screen 0.50 ng/mL 0.00-4.00 [facility] Comment on above: This test was perfor med using the TPSA assay method for theVideoflot chemistry system. Values obtained with differentassay methods cannot be used interchangably.When changing PSA assays in the course of monitoring apatient, additional sequential testing should be carriedout to confirm baseline values. Thyroid Stimulating Hormone (TSH) 2.77 uIU/mL 0.358-3.74 [facility] Vitamin D 25-Hydroxy 19.3 ng/mL [facility] Comment on above: Vitamin D 25(OH) Sta tus Range Deficiency <20 ng/mL (50nmol/L) Insufficiency 20 - 30 ng/mL (50 - 75 nmol/L) Sufficiency 30 - 100 ng/mL (75 - 250 nmol/L) Toxicity >100 ng/mL (>250 nmol/L) Serum or plasma cholesterol in HDL measurement (mass/volume)Ordered By: Dr. Friedman on 06-26-2022 Cholesterol in HDL [Mass/Vol] 48 mg/dL >40 [facility] Comment on above: The drugs N-Acetylcy steine and Metamizole may falsely depress this assay. Reference Range HDL <40 mg/dL Low HDL Cholesterol HDL >or= 60 mg/dL High HDL Cholesterol Serum or plasma cholesterol in VLDL measurement (mass/volume)Ordered By: Dr. Friedman on 06-26-2022 Cholesterol in VLDL [Mass/Vol] 18 mg/dL 5-40 [facility] Serum or plasma low density lipoprotein (LDL) cholesterol measurement (mass/volume)Ordered By: Dr. Friedman on 06-26-2022 Cholesterol in LDL [Mass/Vol] 182 mg/dL 0-130 [facility] - Microbiology an d Antimicrobial susceptibilityon 04-01-2022 SARS-CoV-2 (COVID-19) RNA JAYCEE+probe Ql (Unsp spec) Not detected [facility] No Panel Informationon 04-01 POC Nasal Swab Influenza A,B Detected [facility] POC Nasal Swab RSV Not detected [facility] Absolute lymphocyte counton 12-26-2021 Lymphocytes Auto (Unsp spec) [#/Vol] 2.04 10*3/uL 0.83-4.51 [facility] Work Phone: Basophil percentageon 2021 Basophils/100 WBC (Bld) 0.5 % 0-1 [facility] Work Phone: Bilirubin [Mass/Vol] 0.50 mg/dL 0.20-1.00 [facility] Work Phone: Comment on above: For patients on eltr ombopag therapy, use of Dimension [place]worth TBIL is not recommended. Chloride [Moles/Vol] 106 mmol/L 98-107 [facility] Work Phone: Eosinophils/100 WBC (Bld) 3.1 % 0-5 [facility] Work Phone: Glucose [Mass/Vol] 106 mg/dL 74-106 [facility] Work Phone: Comment on above: Fasting Glucose resu lt from 100 to 125 mg/dL suggests IMPAIRED HOMEOSTASIS per A.D.A. criteria. Neutrophils (Bld) [#/Vol] 3.4 10*3/uL 2.0-7.7 [facility] Work Phone: Neutrophils/100 WBC (Bld) 53.1 % 47-70 [facility] Work Phone: Potassium [Moles/Vol] 3.9 mmol/L 3.5-5.1 [facility] Work Phone: Protein [Mass/Vol] 7.4 g/dL 6.4-8.2 [facility] Work Phone: Sodium [Moles/Vol] 139 mmol/L 136-145 [facility]: WBC (Bld) [#/Vol] 6.5 10*3/uL 4.4-11.0 [facility] Work Phone: Blood erythrocytes count (nu mber/volume)on 12-26-2021 RBC (Bld) [#/Vol] 4.29 10*6/uL 4.6-6.2 [facility]: Blood hemoglobin measurement (mass/volume)on 12-26-2021 Hemoglobin (Bld) [Mass/Vol] 13.5 g/dL 13.0-16.5 [facility] Work Phone: Blood lymphocytes/100 leukoc yteson 12-26-2021 Lymphocytes/100 WBC (Bld) 31.6 % 19-41 [facility] Work Phone: Blood monocytes/100 leukocyt eson 12-26-2021 Monocytes/100 WBC (Bld) 11.5 % 0-10 [facility] Work Phone: Blood platelet mean volumeon 12-26-2021 Platelet mean volume (Bld) [Entitic vol] 9.2 fL 6.2-12.0 [facility] Work Phone: Determination of erythrocyte mean corpuscular volume (MCV)on 12-26-2021 MCV (RBC) [Entitic vol] 93.0 fL 80-94 [facility] Work Phone: Hematocrit Auto (Bld) [Volum e fraction]on 12-26-2021 Hematocrit (Bld) [Volume fraction] 39.9 % 40-54 [facility] Work Phone: Laboratory - Chemistry and C hemistry - challengeon 12-26-2021 ALP [Catalytic activity/Vol] 79 U/L 45-117 [facility] Work Phone: ALT [Catalytic activity/Vol] 73 U/L 16-61 [facility] Work Phone: CO2 [Moles/Vol] 26.0 mmol/L 21.0-32.0 [facility] Work Phone: Globulin (S) [Mass/Vol] 3.7 g/dL 2.2-4.2 [facility] Work Phone: Urea nitrogen/Creatinine [Mass ratio] 18.3 mg/mg 10-20 [facility] Work Phone: Laboratory - Hematology and Cell countson 12-26-2021 Erythrocyte distribution width (RBC) [Entitic vol] 42.8 fL 35.1-43.9 [facility] Work Phone: Erythrocyte distribution width (RBC) [Ratio] 12.5 % 11.6-14.6 [facility] Work Phone: Immature granulocytes/100 WBC (Bld) 0.200 % 0.0-0.9 [facility] Work Phone: Comment on above: IG% - Immature Granu locytes (promyelocytes, myelocytes and metamyelocytes) > 1% indicates that a LEFT SHIFT is Present. MCH (RBC) [Entitic mass] 31.5 pg 27.0-32.0 [facility] Work Phone: Nucleated RBC/100 WBC (Bld) [Ratio] 0 % 0-5 [facility] Work Phone: MCHC Auto (RBC) [Mass/Vol]on 12-26-2021 MCHC (RBC) [Mass/Vol] 33.8 g/dL 32-36 [facility] Work Phone: No Panel Informationon 12-26 Estimated Creatinine Clearance Calc 61.97 ml/min [facility] Work Phone: Estimated GFR (MDRD) Amer 80 mL/min >60 [facility] Work Phone: Comment on above: GFR Calc Estimated GFR (MDRD) Non-Af Amer 66 mL/min >60 [facility] Work Phone: Comment on above: Non- GFR Calc Platelets bldon 12-26-2021 Platelets (Bld) [#/Vol] 195 10*3/uL 150-450 [facility] Work Phone: Serum or plasma albumin jessica urement (mass/volume)on 12-26-2021 Albumin [Mass/Vol] 3.7 g/dL 3.2-5.0 [facility] Work Phone: Serum or plasma albumin/glob ulin mass ratioon 12-26-2021 Albumin/Globulin [Mass ratio] 1.0 {ratio} 0.9-2.4 [facility] Work Phone: Serum or plasma calcium jessica urement (mass/volume)on 12-26-2021 Calcium [Mass/Vol] 8.8 mg/dL 8.5-10.1 [facility] Work Phone: Serum or plasma creatinine m easurement (mass/volume)on 12-26-2021 Creatinine [Mass/Vol] 1.20 mg/dL 0.70-1.30 [facility] Work Phone: Comment on above: The validity of the calculated GFR & GFRAA in patients over 70 years has not been determined. Clinical correlation is essential. Serum or plasma urea nitroge n measurement (mass/volume)on 12-26-2021 Urea nitrogen [Mass/Vol] 22 mg/dL 7-18 [facility] Work Phone: Thin prep Papanicolaou smear with manual screeningon 12-26-2021 Thin prep Papanicolaou smear with manual screening 38 U/L 15-37 [facility] Work Phone: Thin prep Papanicolaou smear with manual screening 7 5-15 [facility] Work Phone: Thin prep Papanicolaou smear with manual screening 204 U/L 87-241 [facility] Work Phone: [facility] JAELYNDANIELLE MEDEL ([id number]) 1960 M Date Time Provider Department 09/16/20 SELWYN MYLES During your visit today, we recorded the following information about you: Selwyn Myles APRN.CNP, DNP 09/16/2020 10:23 AM Signed Team - PET Scan completed at [facility] - patient has not been seen by Dr. Navarro in over 4 years. Contact patient to find out who is managing the patients care. CT was completed for a Malignant melanoma diagnosis. Selwyn Myles APRN.CNP, DNP [facility] 09/16/2020 10:50 AM Signed Left message for patient to return call to office [facility] Evelyne Benson RN 09/16/2020 11:53 AM Signed Patient's calls and states that Dr. Navarro is still his PCP. Advised patient's that Dr. Navarro is retiring and that they need to establish care with another provider. Patient's states that she will talk with patient and they will decide what they want to do. Patient's states that Dr. Hogan is the one that ordered CT scan and they had already spoke with Dr. Hogan about results. Evelyne Benson, HARDY Myles APRN.CNP, DNP 09/19/2020 10:22 PM Signed Noted. Selwyn Myles APRN.CNP, DNP Allergies As of Date: 09/16/2020 (No Known Allergies) Date Reviewed: 05/11/2016 Reviewed by: Sowmya Bower [facility] - Fully Assessed Reason for Visit: Results [95] Prescriptions as of 09/16/2020 Sig: FLUOCINONIDE 0.05 % TOPICAL O* Apply to affected active or s* Problem List As Of Date 09/16/2020 Noted Resolved Melanoma [C43.9] 10/04/2011 Insomnia [G47.00] 10/04/2011 Hyperlipidemia [E78.5] 10/11/2011 Melanocytic nevi of trunk [D22.5] 11/29/2011 12/20/2015 Melanocytic nevi of upper extremity or shoulder* 2 12/20/2015 Melanocytic nevi of face [D22.30] 11/29/2011 Solar Lentigines [L81.4] 11/29/2011 12/20/2015 Actinic skin damage [L57.8] 11/29/2011 Personal history of Malignant Melanoma of skin:*11/29/2011 Atypical nevus of thigh [D22.70] 02/21/2012 12/20/2015 Melanocytic nevi of lower extremity or hip [D22*02/21/2012 12/20/2015 Other acne [L70.8] 02/21/2012 12/20/2015 Epidermal cyst [L72.0] 02/21/2012 12/20/2015 Dermatofibroma of buttock [D23.5] 02/21/2012 12/20/2015 Nummular eczema [L30.0] 06/08/2013 Encounter Status:Closed by WORKMAN CHUYITA BRADEN on 09/20/20 Normal [facility] Erythrocyte distribution wid th standard deviationon 08-25-2018 Erythrocyte distribution width (RBC) [Entitic vol] 43.3 fL 35.1-43.9 [facility] - Hematology and Cell countson 08-25-2018 Erythrocyte distribution width (RBC) [Ratio] 12.7 % 11.6-14.6 [facility] Total cell counton 9 Cells counted Molgen (Bld/Tiss) [#] Not Reportable [facility] Office Visit: Spine Visit- R sided low back painon 03-21-2017 Documentation of current medications (procedure) Done Invalid Interpretation Code [facility] Work Phone: Office Visit: Spine Visit- R sided low back painon 03-12-2017 Documentation of current medications (procedure) Done Invalid Interpretation Code [facility] Work Phone: Office Visit: Spine Visit- N EWon 03-07-2017 Dietary management education, guidance, and counseling (procedure) yes Invalid Interpretation Code [facility] Work Phone: Documentation of current medications (procedure) Done Invalid Interpretation Code [facility] Work Phone: Tobacco smoking status NHIS Never Invalid Interpretation Code [facility] Work Phone: Tobacco smoking status NHIS Tobacco smoking status NHIS Invalid Interpretation Code [facility] Work Phone: Tobacco use [facility] Former smoker Invalid Interpretation Code [facility] Work Phone: Lab Report: CBC W/Diff, Auto - EPLAB Onlyon 08-18-2015 Absolute Neut 4.0 X10 3/UL Invalid Interpretation Code 2.0-7.7 [facility] Work Phone: Basophils/100 WBC Auto (Bld) 0.8 % Invalid Interpretation Code 0-1 [facility] Work Phone: Eosinophils/100 leukocytes 2.1 % Invalid Interpretation Code 0-5 [facility] Work Phone: Erythrocyte distribution width Auto Ratio (RBC) 12.3 % Invalid Interpretation Code 11.6-14.6 [facility] Work Phone: Erythrocytes (RBC) 4.67 10*6/uL Invalid Interpretation Code 4.6-6.2 [facility] Work Phone: Hematocrit (HCT) 43.4 % Invalid Interpretation Code 40-54 [facility] Work Phone: Hemoglobin mass conc (Bld) 14.8 g/dL Invalid Interpretation Code 13.0-16.5 [facility] Work Phone: Lymphocytes 1.99 X10 3/UL Invalid Interpretation Code 0.83-4.51 [facility] Work Phone: Lymphocytes/100 leukocytes 29.5 % Invalid Interpretation Code 19-41 [facility] Work Phone: MCH 31.7 pg Invalid Interpretation Code 27.0-32.0 [facility] Work Phone: MCHC mass conc (RBC) 34.0 g/dL Invalid Interpretation Code 32-36 [facility] Work Phone: MCV 93.1 fL Invalid Interpretation Code 80-94 [facility] Work Phone: Monocytes/100 leukocytes 7.9 % Invalid Interpretation Code 0-10 [facility] Work Phone: Neutrophils/100 WBC Auto (Bld) 59.7 % Invalid Interpretation Code 47-70 [facility] Work Phone: Platelets 222 10*3/mm3 Invalid Interpretation Code 150-450 [facility] Work Phone: PMV by Selina 6.4 fL Invalid Interpretation Code 6.2-12.0 [facility] Work Phone: WBC (Leukocytes) 6.7 10*3/uL Invalid Interpretation Code 4.4-11.0 [facility] Work Phone: Lab Report: [facility] 08-18-2015 Alanine aminotransferase (ALT) 24 U/L Invalid Interpretation Code 12-78 [facility] Work Phone: Albumin 3.8 g/dL Invalid Interpretation Code 3.4-5.0 [facility] Work Phone: Albumin/Globulin Ratio 1.1 {ratio} Invalid Interpretation Code 0.9-2.4 [facility] Work Phone: Alkaline phosphatase (ALP) 83 U/L Invalid Interpretation Code 50-136 [facility] Work Phone: Anion gap 7 mmol/L Invalid Interpretation Code 5-15 [facility] Work Phone: Aspartate aminotransferase (AST) 18 U/L Invalid Interpretation Code 15-37 [facility] Work Phone: Bilirubin (total) 0.30 mg/dL Invalid Interpretation Code 0.20-1.00 [facility] Work Phone: BUN/Creatinine Ratio 16.2 RATIO Invalid Interpretation Code 10-20 [facility] Work Phone: Calcium 8.7 mg/dL Invalid Interpretation Code 8.5-10.1 [facility] Work Phone: Chloride 106 mmol/L Invalid Interpretation Code 98-107 [facility] Work Phone: CO2 28.0 mmol/L Invalid Interpretation Code 21.0-32.0 [facility] Work Phone: Creatinine 1.17 mg/dL Invalid Interpretation Code 0.70-1.30 [facility] Work Phone: eGFR (non-black) 84 mL/min/{1.73_m2} Invalid Interpretation Code >60 [facility] Work Phone: eGFR (non-black) 69 mL/min/{1.73_m2} Invalid Interpretation Code >60 [facility] Work Phone: Globulin 3.4 g/dL Invalid Interpretation Code 2.3-3.5 [facility] Work Phone: Glucose mass conc 100 mg/dL Invalid Interpretation Code 70-110 [facility] Work Phone: Potassium molar conc 4.6 mmol/L Invalid Interpretation Code 3.5-5.1 [facility] Work Phone: Protein 7.2 g/dL Invalid Interpretation Code 6.4-8.2 [facility] Work Phone: Sodium 141 mmol/L Invalid Interpretation Code 136-145 [facility] Work Phone: Urea nitrogen 19 mg/dL High 7-18 [facility] Work Phone: Lab Report: LDHon 08-18-2015 LDH 187 U/L Invalid Interpretation Code 87-241 [facility] Work Phone: Lab Report: Magnesiumon 07-22 Magnesium 2.2 mg/dL Invalid Interpretation Code 1.8-2.4 [facility] Work Phone: Lab Report: Uric Acidon 07-22 Urate 4.6 mg/dL Invalid Interpretation Code 3.5-7.2 [facility] Work Phone: Office Visiton 08-18-2015 Documentation of current medications (procedure) Done Invalid Interpretation Code [facility] Work Phone: Lab Report: CBC W/Diff, Auto matedon 02-03-2015 Immature granulocytes/100 WBC (Bld) 0.100 % Invalid Interpretation Code 0.0-0.9 [facility] Work Phone: RDW SD 44.6 fL High 35.1-43.9 [facility] Work Phone: Lab Report: Thyroid Stim Hor chelsea (TSH)on 02-03-2015 Thyroid stimulating hormone (TSH) 2.28 u[iU]/mL Invalid Interpretation Code 0.358-3.74 [facility] Work Phone: Lab Report: CBC W/Diff, Auto - EPLAB Onlyon 06-24-2014 Absolute Neut 3.0 X10 3/UL Invalid Interpretation Code 2.0-7.7 [facility] Work Phone: Lab Report: LDHon 06-24-2014 Lactate dehydrogenase (LDH) 181 U/L Invalid Interpretation Code 84-246 [facility] Work Phone: Lab Report: LIVERon 01-06-20 14 ALK 87 U/L Normal 45-117 [facility] Work Phone: Bilirubin (direct) 0.08 mg/dL Normal 0.00-0.[address] 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 Amena Friedman MD Work Phone: [facility] 02-09-2025 16:01-0400 Body mass index (BMI) [Ratio] 32.5 kg/m2 Dr. Amena Friedman MD Work Phone: [facility] 02-09-2025 16:01-0400 Body temperature 98.4 [degF] Dr. Amena Friedman MD Work Phone: [facility] 02-09-2025 16:01-0400 Body weight 94.[address] Amena Friedman MD Work Phone: [facility] 02-09-2025 16:01-0400 Diastolic blood pressure 65 mm[Hg] Dr. Amena Friedman MD Work Phone: [facility] 02-09-2025 16:01-0400 Heart rate 61 /min Dr. Amena Friedman MD Work Phone: [facility] 02-09-2025 16:01-0400 Respiratory rate 18 /min Dr. Amena Friedman MD Work Phone: [facility] 02-09-2025 16:01-0400 SaO2% (BldA) [Mass fraction] 99 % Dr. Amena Friedman MD Work Phone: [facility] 02-09-2025 16:01-0400 Systolic blood pressure 103 mm[Hg] Dr. Amena Friedman MD Work Phone: [facility] 07-28-2024 08:09-0400 Body height 170.[address] Amena Friedman MD Work Phone: [facility] 07-28-2024 08:09-0400 Body mass index (BMI) [Ratio] 34.4 kg/m2 Dr. Amena Friedman MD Work Phone: [facility] 07-28-2024 08:09-0400 Body weight 99.[address] Amena Friedman MD Work Phone: [facility] 07-28-2024 08:09-0400 Diastolic blood pressure 78 mm[Hg] Dr. Amena Friedman MD Work Phone: [facility] 07-28-2024 08:09-0400 Systolic blood pressure 138 mm[Hg] Dr. Amena Friedman MD Work Phone: [facility] 10-24-2022 10:27-0400 Body height 170.18 cm No Primary Care Physician [facility] 10-24-2022 10:27-0400 Body mass index (BMI) [Ratio] 34.7 kg/m2 No Primary Care Physician [facility] 10-24-2022 10:27-0400 Body temperature 98.3 [degF] No Primary Care Physician [facility] 10-24-2022 10:27-0400 Body weight 100.75 kg No Primary Care Physician [facility] 10-24-2022 10:27-0400 Diastolic blood pressure 73 mm[Hg] No Primary Care Physician [facility] 10-24-2022 10:27-0400 Heart rate 65 /min No Primary Care Physician [facility] 10-24-2022 10:27-0400 Respiratory rate 16 /min No Primary Care Physician [facility] 10-24-2022 10:27-0400 SaO2% (BldA) [Mass fraction] 96 % No Primary Care Physician [facility] 10-24-2022 10:27-0400 Systolic blood pressure 112 mm[Hg] No Primary Care Physician [facility] 10-09-2022 08:30-0400 Body mass index (BMI) [Ratio] 34 kg/m2 No Primary Care Physician [facility] 10-09-2022 08:30-0400 Body weight 98.42 kg No Primary Care Physician [facility] 10-09-2022 08:30-0400 Diastolic blood pressure 82 mm[Hg] No Primary Care Physician [facility] 10-09-2022 08:30-0400 Systolic blood pressure 128 mm[Hg] No Primary Care Physician [facility] 09-05-2022 07:30-0400 Body mass index (BMI) [Ratio] 33.6 kg/m2 No Primary Care Physician [facility] 09-05-2022 07:30-0400 Body temperature 97.6 [degF] No Primary Care Physician [facility] 09-05-2022 07:30-0400 Body weight 97.52 kg No Primary Care Physician [facility] 09-05-2022 07:30-0400 Diastolic blood pressure 75 mm[Hg] No Primary Care Physician [facility] 09-05-2022 07:30-0400 Heart rate 60 /min No Primary Care Physician [facility] 09-05-2022 07:30-0400 Respiratory rate 18 /min No Primary Care Physician [facility] 09-05-2022 07:30-0400 SaO2% (BldA) [Mass fraction] 98 % No Primary Care Physician [facility] 09-05-2022 07:30-0400 Systolic blood pressure 120 mm[Hg] No Primary Care Physician [facility] 04-01-2022 09:22-0500 Body height 170.18 cm No Primary Care Physician [facility] 04-01-2022 09:22-0500 Body mass index (BMI) [Ratio] 33 kg/m2 No Primary Care Physician [facility] 04-01-2022 09:22-0500 Body temperature 98.4 [degF] No Primary Care Physician [facility] 04-01-2022 09:22-0500 Body weight 95.7 kg No Primary Care Physician [facility] 04-01-2022 09:22-0500 Diastolic blood pressure 60 mm[Hg] No Primary Care Physician [facility] 04-01-2022 09:22-0500 Heart rate 61 /min No Primary Care Physician [facility] 04-01-2022 09:22-0500 Respiratory rate 18 /min No Primary Care Physician [facility] 04-01-2022 09:22-0500 SaO2% (BldA) [Mass fraction] 98 % No Primary Care Physician [facility] 04-01-2022 09:22-0500 Systolic blood pressure 100 mm[Hg] No Primary Care Physician [facility] 03-21-2022 10:08-0500 Body mass index (BMI) [Ratio] 33.7 kg/m2 No Primary Care Physician [facility] 03-21-2022 10:08-0500 Body temperature 98.6 [degF] No Primary Care Physician [facility] 03-21-2022 10:08-0500 Body weight 97.69 kg No Primary Care Physician [facility] 03-21-2022 10:08-0500 Diastolic blood pressure 87 mm[Hg] No Primary Care Physician [facility] 03-21-2022 10:08-0500 Heart rate 57 /min No Primary Care Physician [facility] 03-21-2022 10:08-0500 Respiratory rate 18 /min No Primary Care Physician [facility] 03-21-2022 10:08-0500 SaO2% (BldA) [Mass fraction] 97 % No Primary Care Physician [facility] 03-21-2022 10:08-0500 Systolic blood pressure 138 mm[Hg] No Primary Care Physician [facility] 12-26-2021 15:58-0400 Body height 170.18 cm No Primary Care Physician [facility] Work Phone: 12-26-2021 15:55-0400 Body mass index (BMI) [Ratio] 31.8 kg/m2 No Primary Care Physician [facility] Work Phone: 12-26-2021 15:55-0400 Body temperature 98.7 [degF] No Primary Care Physician [facility] Work Phone: 12-26-2021 15:55-0400 Body weight 92.07 kg No Primary Care Physician [facility] Work Phone: 12-26-2021 15:55-0400 Diastolic blood pressure 81 mm[Hg] No Primary Care Physician [facility] Work Phone: 12-26-2021 15:55-0400 Heart rate 57 /min No Primary Care Physician [facility] Work Phone: 12-26-2021 15:55-0400 Respiratory rate 15 /min No Primary Care Physician [facility] Work Phone: 12-26-2021 15:55-0400 SaO2% (BldA) [Mass fraction] 99 % No Primary Care Physician [facility] Work Phone: 12-26-2021 15:55-0400 Systolic blood pressure 130 mm[Hg] No Primary Care Physician [facility] Work Phone: 10-10-2021 10:44-0400 Body mass index (BMI) [Ratio] 32.4 kg/m2 No Primary Care Physician [facility] Work Phone: 10-10-2021 10:44-0400 Body temperature 97.6 [degF] No Primary Care Physician [facility] Work Phone: 10-10-2021 10:44-0400 Body weight 94.06 kg No Primary Care Physician [facility] Work Phone: 10-10-2021 10:44-0400 Diastolic blood pressure 88 mm[Hg] No Primary Care Physician [facility] Work Phone: 10-10-2021 10:44-0400 Heart rate 64 /min No Primary Care Physician [facility] Work Phone: 10-10-2021 10:44-0400 Respiratory rate 16 /min No Primary Care Physician [facility] Work Phone: 10-10-2021 10:44-0400 SaO2% (BldA) [Mass fraction] 97 % No Primary Care Physician [facility] Work Phone: 10-10-2021 10:44-0400 Systolic blood pressure 136 mm[Hg] No Primary Care Physician [facility] Work Phone: 08-25-2019 08:38-0400 Body mass index (BMI) [Ratio] 33.2 kg/m2 No Primary Care Physician [facility] 08-25-2019 08:38-0400 Body temperature 97.7 [degF] No Primary Care Physician [facility] 08-25-2019 08:38-0400 Body weight 96.16 kg No Primary Care Physician [facility] Work Phone: 08-25-2019 08:38-0400 Diastolic blood pressure 91 mm[Hg] No Primary Care Physician [facility] 08-25-2019 08:38-0400 Heart rate 60 /min No Primary Care Physician [facility] 08-25-2019 08:38-0400 Respiratory rate 16 /min No Primary Care Physician [facility] 08-25-2019 08:38-0400 SaO2% (BldA) [Mass fraction] 96 % No Primary Care Physician [facility] 08-25-2019 08:38-0400 Systolic blood pressure 143 mm[Hg] No Primary Care Physician [facility] 03-07-2017 15:31-0500 BMI (Body Mass Index) 32.71 kg/m2 Enriqueta Campbell [facility] Work Phone: 03-07-2017 15:31-0500 Pulse (Heart Rate) 82 /min Enriqueta Campbell [facility] Work Phone: 03-07-2017 15:31-0500 Respiratory Rate 19 /min Enriqueta Campbell [facility] Work Phone: 03-07-2017 15:31-0500 Weight 96.16 kg Enriqueta Campbell [facility] Work Phone: 08-18-2015 08:36-0400 BMI (Body Mass Index) 27.34 kg/m2 Enriqueta Campbell [facility] Work Phone: 08-18-2015 08:36-0400 Body Temperature 97.9 [degF] Enriqueta Campbell [facility] Work Phone: 08-18-2015 08:36-0400 BP Diastolic 81 mm[Hg] Enriqueta Campbell [facility] Work Phone: 08-18-2015 08:36-0400 BP Systolic 123 mm[Hg] Enriqueta Campbell [facility] Work Phone: 08-18-2015 08:36-0400 BSA (Body Surface Area) 1.93 m2 Enriqueta Campbell [facility] Work Phone: 08-18-2015 08:36-0400 Height 171.45 cm Enriqueta Campbell [facility] Work Phone: 08-18-2015 08:36-0400 Pulse (Heart Rate) 58 /min Enriqueta Campbell [facility] Work Phone: 08-18-2015 08:36-0400 Respiratory Rate 16 /min Enriqueta Campbell [facility] Work Phone: 08-18-2015 08:36-0400 Weight 80.55 kg Enriqueta Tariqimes [facility] Work Phone: 08-18-2015 08:36-0400 Weight 80.38 kg Enriqueta Campbell [facility] Work Phone: 06-24-2014 08:51-0500 Height 171.45 cm Enriqueta Campbell [facility] Work Phone: Encounters Encounter Date Encounter Type Care Provider Facility Start: 03-02-2025 ambulatory Amena Friedman Facility :[facility] Start: 02-09-2025 End: 02-09-[address] Jesus Hogan MD -[facility] Work Phone: Start: 02-09-2025 End: 02-09-2025 ambulatory Amena [place]alia [place] [place]: 02-02-2025 End: 02-02-[address] Jesus Hogan MD -Radiology [facility] Work Phone: Start: 02-02-2025 End: 02-02-2025 ambulatory Jesus Hogan Facility:[facility] Start: 12-23-2024 End: 12-23-[address] Indy Man DC -[facility] Work Phone: Start: 12-23-2024 End: 12-23-[address] Amena Friedman MD Work Phone: -[facility] Start: 12-01-2024 End: 12-01-[address] Indy Man DC -[facility] Work Phone: Start: 12-01-2024 End: 12-01-[address] Amena Friedman MD Work Phone: -[facility] Start: 11-09-2024 End: 11-09-[address] Indy Man DC -[facility] Work Phone: Start: 11-09-2024 End: 11-09-[address] Amena Friedman MD Work Phone: -[facility] Start: 10-07-2024 End: 10-07-[address] Indy Man DC -[facility] Work Phone: Start: 10-07-2024 End: 10-07-[address] Amena Friedman MD Work Phone: [facility] Work Phone: Start: 09-21-2024 End: 09-21-[address] Indy Man DC -[facility] Work Phone: Start: 09-21-2024 End: 09-21-[address] Amena Friedman MD Work Phone: [facility] Work Phone: Start: 09-09-2024 End: 09-09-[address] Indy Man DC -[facility] Work Phone: Start: 09-09-2024 End: 09-09-[address] Amena Friedman MD Work Phone: [facility] Work Phone: Start: 09-01-2024 End: 09-01-[address] Indy Man DC -[facility] Work Phone: Start: 09-01-2024 End: 09-01-[address] Amena Friedman MD Work Phone: [facility] Work Phone: Start: 08-27-2024 End: 08-27-[address] Indy Man DC -[facility] Work Phone: Start: 08-27-2024 End: 08-27-2024 ambulatory Amena Friedman [place] [place]: 08-19-2024 End: 08-19-[address] Indy Man DC -[facility] Work Phone: Start: 08-19-2024 End: 08-19-2024 ambulatory [facility] Start: 08-12-2024 End: 08-12-[address] Indy Man DC -[facility] Work Phone: Start: 08-12-2024 End: 08-12-2024 ambulatory [facility] Start: 08-04-2024 End: 08-04-2024 ambulatory [facility] Start: 08-04-2024 End: 08-04-[address] Indy Man DC -[facility] Work Phone: Start: 07-28-2024 End: 07-28-[address] Indy Man DC -[facility] Work Phone: Start: 07-28-2024 End: 07-28-2024 ambulatory [facility] Start: 04-27-2024 End: 04-27-2024 ambulatory [facility] Start: 10-24-2022 Non-patient / Non-visit No Primary Care Physician [facility] Start: 10-24-2022 End: 10-24-2022 ambulatory No Primary Care Physician [facility] Work Phone: Start: 10-24-2022 End: 10-24-2022 Patient encounter procedure No Primary Care Physician [facility] Work Phone: Start: 10-24-2022 Registered Recurring No Primar y Care Physician [facility] Start: 10-24-2022 End: 10-24-2022 Patient encounter procedure No Primary Care Physician [facility] Work Phone: Start: 10-16-2022 End: 10-16-2022 Patient encounter procedure No Primary Care Physician [facility] Work Phone: Start: 10-09-2022 End: 10-09-2022 Patient encounter procedure No Primary Care Physician [facility] Work Phone: Start: 09-05-2022 End: 09-05-2022 Patient encounter procedure No Primary Care Physician [facility] [place] Work Phone: Start: 06-26-2022 Non-patient / Non-visit No Primary Care Physician [facility] Start: 06-26-2022 End: 06-26-2022 ambulatory No Primary Care Physician [facility] Work Phone: Start: 06-26-2022 End: 06-26-2022 Patient encounter procedure No Primary Care Physician [facility] Start: 04-27-2022 End: 04-27-2022 Patient encounter procedure No Primary Care Physician [facility] Start: 04-01-2022 End: 04-01-2022 Patient encounter procedure No Primary Care Physician [facility] Start: 03-21-2022 End: 03-21-2022 Patient encounter procedure No Primary Care Physician [facility] Start: 12-26-2021 End: 12-26-2021 Patient encounter procedure No Primary Care Physician [facility] Start: 12-26-2021 Registered Recurring No Primar y Care Physician [facility] Start: 12-20-2021 End: 12-20-2021 ambulatory No Primary Care Physician [facility] Work Phone: Start: 12-20-2021 End: 12-20-2021 Patient encounter procedure No Primary Care Physician [facility]-Cat Scan, [facility] Start: 10-10-2021 End: 10-10-2021 Patient encounter procedure No Primary Care Physician [facility] [place] Procedures Date Procedure Procedure Detail Performing Clinician Start: 02-02-2025 Radiologic exam ches t [address] Amena Friedman MD Work Phone: Start: 06-26-2022 Radionuclide imaging of perfusion of myocardium under exercise stress No Primary Care Physician Start: 12-20-2021 CT of thorax with contrast No Primary Care Physician Start: 2020 Positron emission tomography with computed tomography No Primary Care Physician Start: 08-24-2020 Plain chest X-ray No Pr imary Care Physician Start: 03-21-2017 End: 03-21-2017 Appl modality 1/> areas traction mechanical Indy B Dossi DC Work Phone: Start: 03-21-2017 End: 03-21-2017 Chiropractic manipulative tx spinal 3-4 regions Indy B Dossi DC Work Phone: Start: 03-12-2017 End: 03-20-2017 Appl modality 1/> areas traction mechanical Indy B Dossi DC Work Phone: Start: 03-12-2017 End: 03-20-2017 Chiropractic manipulative tx spinal 3-4 regions Indy B Dossi DC Work Phone: Start: 03-07-2017 End: 03-11-2017 Appl modality 1/> areas traction mechanical Indy B Dossi DC Work Phone: Start: 03-07-2017 End: 03-11-2017 Chiropractic manipulative tx spinal 3-4 regions Indy B Dossi DC Work Phone: Start: 08-18-2015 End: 08-18-2015 *CMP Complete Metabolic Panel Santiago Awad Work Phone: Start: 08-18-2015 End: 08-18-2015 Lactate dehydrogenase [Enzymatic activity/volume] in Serum or Plasma Santiago Awad Work Phone: Start: 08-18-2015 End: 08-18-2015 Magnesium [Mass/volume] in Serum or Plasma Santiago Awad Work Phone: Start: 08-18-2015 End: 08-18-2015 Urate [Mass/volume] in Serum or Plasma Santiago Awad Work Phone: Start: 06-23-2014 End: 06-24-2014 Lactate dehydrogenase [Enzymatic activity/volume] in Serum or Plasma Santiago Awad Work Phone: Plan of Treatment Date Care Activity Detail Author Start: 03-28-2017 End: 03-28-2017 Appointment Appointment [facility] Work Phone: Start: 03-21-2017 End: 03-21-2017 Appointment Appointment [facility] Work Phone: Start: 03-21-2017 End: 03-21-2017 Follow up Appt 3x/week Follow up Appt 3x/week [facility] Work Phone: Start: 03-12-2017 End: 03-12-2017 Appointment Appointment [facility] Work Phone: Start: 03-12-2017 End: 03-20-2017 Follow up Appt 3x/week Follow up Appt 3x/week [facility] Work Phone: Start: 03-07-2017 End: 03-07-2017 Appointment Appointment [facility] Work Phone: Start: 03-07-2017 End: 03-11-2017 Follow up Appt 3x/week Follow up Appt 3x/week [facility] Work Phone: Start: 01-28-2017 [facility] Start: 08-16-2016 End: 08-18-2015 *CBC with Differential *CBC with Differential [facility] Work Phone: Start: 08-16-2016 End: 08-18-2015 *CMP Complete Metabolic Panel *CMP Complete Metabolic Panel [facility] Work Phone: Start: 08-16-2016 End: 08-18-2015 Lactate dehydrogenase (LDH) *LDH -LDH (Lactate Dehydrogenase) [facility] Work Phone: Start: 08-16-2016 End: 08-18-2015 Urate *Uric Acid Blood [facility] Work Phone: Start: 08-18-2015 End: 02-21-2015 *CBC with Differential *CBC with Differential [facility] Work Phone: Start: 08-18-2015 End: 08-18-2015 *CMP Complete Metabolic Panel *CMP Complete Metabolic Panel [facility] Work Phone: Start: 08-18-2015 End: 08-18-2015 Lactate dehydrogenase (LDH) *LDH -LDH (Lactate Dehydrogenase) [facility] Work Phone: Start: 08-18-2015 End: 08-18-2015 Magnesium *Magnesium [facility] Work Phone: Start: 08-18-2015 End: 08-18-2015 Urate *[facility] Work [facility]: Start: 06-23-2014 End: 06-17-2014 *CBC with Differential *CBC with Differential [facility] Work Phone: Start: 06-23-2014 End: 06-24-2014 Lactate dehydrogenase (LDH) *LDH -LDH [facility]Lactate Dehydrogenase) [facility] Work [facility]: CT Lumbar spine W contrast IV [facility] Work Phone: CT Lumbar spine W contrast IV [facility] CT Thoracic spine W contrast IV [facility] Work Phone: CT Thoracic spine W contrast IV [facility] MR Brain WO and W contrast IV [facility] Work Phone: MR Brain WO and W contrast IV [facility] MR Lumbar spine WO a nd W contrast IV [facility] Work Phone: MR Lumbar spine WO a nd W contrast IV [facility] MRI of thoracic spin e with contrast [facility] Work Phone: MRI of thoracic spin e with contrast [facility] Patient Education ED Influenza (Adult) [facility] Work Phone: Immunizations Immunization Date Immunization Notes Care Provider [facility] 01-21-2024 influenza, injectabl e, madin cricket canine kidney, preservative free Dr. Amena Friedman MD Work Phone: [facility] 02-20-2022 influenza, injectabl e, quadrivalent, preservative free Dr. Amena Friedman MD Work Phone: [facility] 02-20-2022 influenza, seasonal, injectable No Primary Care Physician [facility] Payers Date Payer Category Payer Unknown [id number] 2024 Self-pay [id number] Unknown [id number] [id number] [employer] [id number] Unknown [employer] *COLLECT SP* [id number] Unknown [facility] PACKAGE PLAN [id number] Unknown [id number] Unknown [id number] Unknown [id number] Unknown [id number] Unknown [id number] Unknown [id number] Unknown [id number] Unknown [id number] Unknown [id number] Unknown [id number] Unknown [id number] Unknown [id number] Unknown [id number] Unknown [id number] Unknown [id number] Unknown [id number] Social History Date Type Detail Facility Start: 10-10-2021 End: 10-16-2022 Tobacco smoking status [facility] Unknown if ever smoked [facility] Start: 08-17-2020 None [facility] Start: 1960 Sex Assigned At Male [facility] Start: 06-30-2024 End: 06-30-2024 Tobacco smoking status NHIS Ex-smoker (finding) [facility] Sex Male [facility] Goals Date Patient Goal Desired Activity /State Clinical Notes 04-12-2021 to 02-09-2025 Note Date & Type Note Facility 02-09-2025 Progress note [facility] 11-09-2024 Evaluation note Diagnosis Onset Date Resolution Segmental and somatic dysfunction of lumbar region acute November 09, 2024 3:41pm Segmental and somatic dysfunction of pelvic region acute November 09, 2024 3:41pm Segmental and somatic dysfunction of thoracic region acute November 09, 2024 3:41pm Spinal stenosis at L4-L5 level chronic November 09, 2024 3:41pm Segmental and somatic dysfunction of lumbar region acute December 01 7:52am Segmental and somatic dysfunction of pelvic region acute December 01 7:52am Segmental and somatic dysfunction of thoracic region acute December 01 7:52am Spinal stenosis of lumbar region chronic December 01 7:52am Segmental and somatic dysfunction of lumbar region acute December 23 025 7:59am Segmental and somatic dysfunction of pelvic region acute Mirna 3rd, 2 025 7:59am Segmental and somatic dysfunction of thoracic region acute December 23 7:59am Spinal stenosis of lumbar region chronic December 23 7:59am [place] chronic February 09, 2025 3:46pm History of malignant melanoma chronic February 09 3:46pm [facility] Work Phone: 1(195) 166-393905-08-2025 Evaluation note* Diagnosis Onset Date Resolution Status Admit Date Segmental and somatic dysfunction of lumbar region acute August 27, 2024 11:50am Segmental and somatic dysfunction of pelvic region acute August 27, 2024 11:50am Segmental and somatic dysfunction of thoracic region acute M ay 2024 11:50am Spinal stenosis of lumbar region chronic August 27, 2024 11 :50am Back pain acute September 01, 2024 7:55am Segmental and somatic dysfunction of lumbar region acute September 01, 2024 7:55am Segmental and somatic dysfunction of pelvic region acute September 01, 2024 7:55am Segmental and somatic dysfunction of thoracic region acute ay 2024 7:55am Spinal stenosis of lumbar region chronic September 01, 2024 7 :55am Radiculopathy of lumbar region acute September 09, 2024 8:19am Segmental and somatic dysfunction of lumbar region acute September 09, 2024 8:19am Segmental and somatic dysfunction of pelvic region acute September 09, 2024 8:19am Segmental and somatic dysfunction of thoracic region acute [facility] 2024 8:19am Spinal stenosis of lumbar region chronic September 09, 2024 8 :19am Back pain acute September 21, 2024 3:49pm Segmental and somatic dysfunction of lumbar region acute Mark e 2024 3:49pm Segmental and somatic dysfunction of pelvic region acute Mark 2024 3:49pm Segmental and somatic dysfunction of thoracic region acute J une 2024 3:49pm Spinal stenosis of lumbar region chronic September 21, 2024 3 :49pm Back pain acute October 07 9:22am Segmental and somatic dysfunction of cervical region acute J une 2024 9:22am Segmental and somatic dysfunction of lumbar region acute Mark e 2024 9:22am Segmental and somatic dysfunction of pelvic region acute Mark e 2024 9:22am Segmental and somatic dysfunction of thoracic region acute J une 2024 9:22am Spinal stenosis of lumbar region chronic October 07, 2024 9:22am Segmental and somatic dysfunction of lumbar region acute Oct 3:41pm Segmental and somatic dysfunction of pelvic region acute Oct 3:41pm Segmental and somatic dysfunction of thoracic region acute J raquel 2024 3:41pm Spinal stenosis at L4-L5 level chron ic November 09, 2024 3:41pm Segmental and somatic dysfunction of lumbar region acute Aug ust 2024 7:52am Segmental and somatic dysfunction of pelvic region acute Aug ust 2024 7:52am Segmental and somatic dysfunction of thoracic region acute A ugust 2024 7:52am Spinal stenosis of lumbar region chronic December 01 7:52am Radiculopathy of lumbar region acute December 23, 2024 7:59am Segmental and somatic dysfunction of cervical region acute S eptember 2024 7:59am Segmental and somatic dysfunction of lumbar region acute Sep tember 2024 7:59am Segmental and somatic dysfunction of pelvic region acute Sep tember 2024 7:59am Segmental and somatic dysfunction of thoracic region acute S eptember 2024 7:59am Spinal stenosis at L4-L5 level chron ic December 23, 2024 7:59am Spinal stenosis of lumbar region chronic December 23, 7:59am [facility] Work Phone: 1(338) 506-977304-15-2025 Evaluation note* Diagnosis Onset Date Resolution Status Admit Date Segmental and somatic dysfunction of lumbar region acute Apr il 2024 10:11am Segmental and somatic dysfunction of pelvic region acute Apr il 2024 10:11am Segmental and somatic dysfunction of thoracic region acute A pril 2024 10:11am Spinal stenosis at L4-L5 level chron ic August 04, 2024 10:11am Segmental and somatic dysfunction of lumbar region acute Apr il 2024 8:18am Segmental and somatic dysfunction of pelvic region acute Apr il 2024 8:18am Segmental and somatic dysfunction of thoracic region acute A pril 2024 8:18am Spinal stenosis at L4-L5 level chron ic August 12, 2024 8:18am Radiculopathy of lumbar region acute August 19, 2024 10:51am Segmental and somatic dysfunction of lumbar region acute Apr il 2024 10:51am Segmental and somatic dysfunction of pelvic region acute Apr il 2024 10:51am Segmental and somatic dysfunction of thoracic region acute A pril 2024 10:51am Spinal stenosis of lumbar region chronic August 19, 2024 10:51am Segmental and somatic dysfunction of lumbar region acute August 27, 2024 11:50am Segmental and somatic dysfunction of pelvic region acute August 27, 2024 11:50am Segmental and somatic dysfunction of thoracic region acute M ay 2024 11:50am Spinal stenosis of lumbar region chronic August 27, 2024 11 :50am Back pain acute September 01, 2024 7:55am Segmental and somatic dysfunction of lumbar region acute September 01, 2024 7:55am Segmental and somatic dysfunction of pelvic region acute September 01, 2024 7:55am Segmental and somatic dysfunction of thoracic region acute M ay 2024 7:55am Spinal stenosis of lumbar region chronic September 01, 2024 7 :55am Radiculopathy of lumbar region acute September 09, 2024 8:19am Segmental and somatic dysfunction of lumbar region acute September 09, 2024 8:19am Segmental and somatic dysfunction of pelvic region acute September 09, 2024 8:19am Segmental and somatic dysfunction of thoracic region acute M ay 2024 8:19am Spinal stenosis of lumbar region chronic September 09, 2024 8 :19am Back pain acute September 21, 2024 3:49pm Segmental and somatic dysfunction of lumbar region acute Sep 3:49pm Segmental and somatic dysfunction of pelvic region acute Sep 3:49pm Segmental and somatic dysfunction of thoracic region acute J une 2024 3:49pm Spinal stenosis of lumbar region chronic September 21, 2024 3 :49pm Back pain acute October 07 9:22am Segmental and somatic dysfunction of cervical region acute J une 2024 9:22am Segmental and somatic dysfunction of lumbar region acute Mark e 2024 9:22am Segmental and somatic dysfunction of pelvic region acute Mark e 2024 9:22am Segmental and somatic dysfunction of thoracic region acute J une 2024 9:22am Spinal stenosis of lumbar region chronic October 07, 2024 9:22am Segmental and somatic dysfunction of lumbar region acute Oct 3:41pm Segmental and somatic dysfunction of pelvic region acute Oct 3:41pm Segmental and somatic dysfunction of thoracic region acute J raquel 2024 3:41pm Spinal stenosis at L4-L5 level chron ic November 09, 2024 3:41pm Radiculopathy of lumbar region acute December 01, 2024 7:52am Segmental and somatic dysfunction of lumbar region acute Aug ust 2024 7:52am Segmental and somatic dysfunction of pelvic region acute Aug ust 2024 7:52am Segmental and somatic dysfunction of thoracic region acute A ugust 2024 7:52am Spinal stenosis at L4-L5 level chron ic December 01, 2024 7:52am [facility] Work Phone: 1(322) 630-326904-08-2025 Evaluation note* Diagnosis Onset Date Resolution Status Admit Date Segmental and somatic dysfunction of lumbar region acute Apr il 2024 7:56am Segmental and somatic dysfunction of pelvic region acute Apr il 2024 7:56am Segmental and somatic dysfunction of thoracic region acute A pril 2024 7:56am Spinal stenosis of lumbar region acu te July 28, 2024 7:56am Segmental and somatic dysfunction of lumbar region acute Apr il 2024 10:11am Segmental and somatic dysfunction of pelvic region acute Apr il 2024 10:11am Segmental and somatic dysfunction of thoracic region acute A pril 2024 10:11am Spinal stenosis at L4-L5 level chron ic August 04, 2024 10:11am Segmental and somatic dysfunction of lumbar region acute Apr il 2024 8:18am Segmental and somatic dysfunction of pelvic region acute Apr il 2024 8:18am Segmental and somatic dysfunction of thoracic region acute A pril 2024 8:18am Spinal stenosis at L4-L5 level chron ic August 12, 2024 8:18am Radiculopathy of lumbar region acute August 19, 2024 10:51am Segmental and somatic dysfunction of lumbar region acute Apr il 2024 10:51am Segmental and somatic dysfunction of pelvic region acute Apr il 2024 10:51am Segmental and somatic dysfunction of thoracic region acute A pril 2024 10:51am Spinal stenosis of lumbar region acu te August 19, 2024 10:51am Segmental and somatic dysfunction of lumbar region acute August 27, 2024 11:50am Segmental and somatic dysfunction of pelvic region acute August 27, 2024 11:50am Segmental and somatic dysfunction of thoracic region acute M ay 2024 11:50am Spinal stenosis of lumbar region acu te August 27, 2024 11:50am Segmental and somatic dysfunction of lumbar region acute September 01, 2024 7:55am Segmental and somatic dysfunction of pelvic region acute September 01, 2024 7:55am Segmental and somatic dysfunction of thoracic region acute M ay 2024 7:55am Spinal stenosis of lumbar region acu te September 01, 2024 7:55am [facility] Work Phone: 1(126) 426-631004-08-2025 Evaluation note* Diagnosis Onset Date Resolution Status Admit Date Segmental and somatic dysfunction of lumbar region acute Apr il 2024 7:56am Segmental and somatic dysfunction of pelvic region acute Apr il 2024 7:56am Segmental and somatic dysfunction of thoracic region acute A pril 2024 7:56am Spinal stenosis of lumbar region acu te July 28, 2024 7:56am Segmental and somatic dysfunction of lumbar region acute Apr il 2024 10:11am Segmental and somatic dysfunction of pelvic region acute Apr il 2024 10:11am Segmental and somatic dysfunction of thoracic region acute A pril 2024 10:11am Spinal stenosis at L4-L5 level chron ic August 04, 2024 10:11am Segmental and somatic dysfunction of lumbar region acute Apr il 2024 8:18am Segmental and somatic dysfunction of pelvic region acute Apr il 2024 8:18am Segmental and somatic dysfunction of thoracic region acute A pril 2024 8:18am Spinal stenosis at L4-L5 level chron ic August 12, 2024 8:18am Radiculopathy of lumbar region acute August 19, 2024 10:51am Segmental and somatic dysfunction of lumbar region acute Apr il 2024 10:51am Segmental and somatic dysfunction of pelvic region acute Apr il 2024 10:51am Segmental and somatic dysfunction of thoracic region acute A pril 2024 10:51am Spinal stenosis of lumbar region acu te August 19, 2024 10:51am Segmental and somatic dysfunction of lumbar region acute August 27, 2024 11:50am Segmental and somatic dysfunction of pelvic region acute August 27, 2024 11:50am Segmental and somatic dysfunction of thoracic region acute M ay 2024 11:50am Spinal stenosis of lumbar region acu te August 27, 2024 11:50am Back pain acute September 01, 2024 7:55am Segmental and somatic dysfunction of lumbar region acute September 01, 2024 7:55am Segmental and somatic dysfunction of pelvic region acute September 01, 2024 7:55am Segmental and somatic dysfunction of thoracic region acute M ay 2024 7:55am Spinal stenosis of lumbar region acu te September 01, 2024 7:55am Radiculopathy of lumbar region acute September 09, 2024 8:19am Segmental and somatic dysfunction of lumbar region acute September 09, 2024 8:19am Segmental and somatic dysfunction of pelvic region acute September 09, 2024 8:19am Segmental and somatic dysfunction of thoracic region acute M ay 2024 8:19am [facility] Work Phone: 1(862) 707-157604-08-2025 Evaluation note* Diagnosis Onset Date Resolution Status Admit Date Segmental and somatic dysfunction of lumbar region acute Apr il 2024 7:56am Segmental and somatic dysfunction of pelvic region acute Apr il 2024 7:56am Segmental and somatic dysfunction of thoracic region acute A pril 2024 7:56am Spinal stenosis of lumbar region chr onic July 28, 2024 7:56am Segmental and somatic dysfunction of lumbar region acute Apr il 2024 10:11am Segmental and somatic dysfunction of pelvic region acute Apr il 2024 10:11am Segmental and somatic dysfunction of thoracic region acute A pril 2024 10:11am Spinal stenosis at L4-L5 level chron ic August 04, 2024 10:11am Segmental and somatic dysfunction of lumbar region acute Apr il 2024 8:18am Segmental and somatic dysfunction of pelvic region acute Apr il 2024 8:18am Segmental and somatic dysfunction of thoracic region acute A pril 2024 8:18am Spinal stenosis at L4-L5 level chron ic August 12, 2024 8:18am Radiculopathy of lumbar region acute August 19, 2024 10:51am Segmental and somatic dysfunction of lumbar region acute Apr il 2024 10:51am Segmental and somatic dysfunction of pelvic region acute Apr il 2024 10:51am Segmental and somatic dysfunction of thoracic region acute A pril 2024 10:51am Spinal stenosis of lumbar region chr onic August 19, 2024 10:51am Segmental and somatic dysfunction of lumbar region acute August 27, 2024 11:50am Segmental and somatic dysfunction of pelvic region acute August 27, 2024 11:50am Segmental and somatic dysfunction of thoracic region acute M ay 2024 11:50am Spinal stenosis of lumbar region chr onic August 27, 2024 11:50am Back pain acute September 01, 2024 7:55am Segmental and somatic dysfunction of lumbar region acute September 01, 2024 7:55am Segmental and somatic dysfunction of pelvic region acute September 01, 2024 7:55am Segmental and somatic dysfunction of thoracic region acute M ay 2024 7:55am Spinal stenosis of lumbar region chr onic September 01, 2024 7:55am Radiculopathy of lumbar region acute September 09, 2024 8:19am Segmental and somatic dysfunction of lumbar region acute September 09, 2024 8:19am Segmental and somatic dysfunction of pelvic region acute September 09, 2024 8:19am Segmental and somatic dysfunction of thoracic region acute M ay 2024 8:19am Spinal stenosis of lumbar region chr onic September 09, 2024 8:19am Radiculopathy of lumbar region acute September 21, 2024 3:49pm Segmental and somatic dysfunction of lumbar region acute Mark e 2024 3:49pm Segmental and somatic dysfunction of pelvic region acute Mark e 2024 3:49pm Segmental and somatic dysfunction of thoracic region acute J une 2024 3:49pm Spinal stenosis of lumbar region chr onic September 21, 2024 3:49pm [facility] Work Phone: 1(109) 130-481304-08-2025 Evaluation note* Diagnosis Onset Date Resolution Status Admit Date Segmental and somatic dysfunction of lumbar region acute Apr il 2024 7:56am Segmental and somatic dysfunction of pelvic region acute Apr il 2024 7:56am Segmental and somatic dysfunction of thoracic region acute A pril 2024 7:56am Spinal stenosis of lumbar region chr onic July 28, 2024 7:56am Segmental and somatic dysfunction of lumbar region acute Apr il 2024 10:11am Segmental and somatic dysfunction of pelvic region acute Apr il 2024 10:11am Segmental and somatic dysfunction of thoracic region acute A pril 2024 10:11am Spinal stenosis at L4-L5 level chron ic August 04, 2024 10:11am Segmental and somatic dysfunction of lumbar region acute Apr il 2024 8:18am Segmental and somatic dysfunction of pelvic region acute Apr il 2024 8:18am Segmental and somatic dysfunction of thoracic region acute A pril 2024 8:18am Spinal stenosis at L4-L5 level chron ic August 12, 2024 8:18am Radiculopathy of lumbar region acute August 19, 2024 10:51am Segmental and somatic dysfunction of lumbar region acute Apr il 2024 10:51am Segmental and somatic dysfunction of pelvic region acute Apr il 2024 10:51am Segmental and somatic dysfunction of thoracic region acute A pril 2024 10:51am Spinal stenosis of lumbar region chr onic August 19, 2024 10:51am Segmental and somatic dysfunction of lumbar region acute August 27, 2024 11:50am Segmental and somatic dysfunction of pelvic region acute August 27, 2024 11:50am Segmental and somatic dysfunction of thoracic region acute M ay 2024 11:50am Spinal stenosis of lumbar region chr onic August 27, 2024 11:50am Back pain acute September 01, 2024 7:55am Segmental and somatic dysfunction of lumbar region acute September 01, 2024 7:55am Segmental and somatic dysfunction of pelvic region acute September 01, 2024 7:55am Segmental and somatic dysfunction of thoracic region acute M ay 2024 7:55am Spinal stenosis of lumbar region chr onic September 01, 2024 7:55am Radiculopathy of lumbar region acute September 09, 2024 8:19am Segmental and somatic dysfunction of lumbar region acute September 09, 2024 8:19am Segmental and somatic dysfunction of pelvic region acute September 09, 2024 8:19am Segmental and somatic dysfunction of thoracic region acute M ay 2024 8:19am Spinal stenosis of lumbar region chr onic September 09, 2024 8:19am Back pain acute September 21, 2024 3:49pm Segmental and somatic dysfunction of lumbar region acute Mark e 2024 3:49pm Segmental and somatic dysfunction of pelvic region acute Mark e 2024 3:49pm Segmental and somatic dysfunction of thoracic region acute J une 2024 3:49pm Spinal stenosis of lumbar region chr onic September 21, 2024 3:49pm Radiculopathy of lumbar region acute October 07, 2024 9:22am Segmental and somatic dysfunction of cervical region acute J une 2024 9:22am Segmental and somatic dysfunction of lumbar region acute Mark e 2024 9:22am Segmental and somatic dysfunction of pelvic region acute Mark e 2024 9:22am Segmental and somatic dysfunction of thoracic region acute J une 2024 9:22am Spinal stenosis at L4-L5 level chron ic October 07, 2024 9:22am Spinal stenosis of lumbar region chr onic October 07, 2024 9:22am [facility] Work Phone: 1(813) 895-431304-08-2025 Evaluation note* Diagnosis Onset Date Resolution Status Admit Date Segmental and somatic dysfunction of lumbar region acute Apr il 2024 7:56am Segmental and somatic dysfunction of pelvic region acute Apr il 2024 7:56am Segmental and somatic dysfunction of thoracic region acute A pril 2024 7:56am Spinal stenosis of lumbar region chr onic July 28, 2024 7:56am Segmental and somatic dysfunction of lumbar region acute Apr il 2024 10:11am Segmental and somatic dysfunction of pelvic region acute Apr il 2024 10:11am Segmental and somatic dysfunction of thoracic region acute A pril 2024 10:11am Spinal stenosis at L4-L5 level chron ic August 04, 2024 10:11am Segmental and somatic dysfunction of lumbar region acute Apr il 2024 8:18am Segmental and somatic dysfunction of pelvic region acute Apr il 2024 8:18am Segmental and somatic dysfunction of thoracic region acute A pril 2024 8:18am Spinal stenosis at L4-L5 level chron ic August 12, 2024 8:18am Radiculopathy of lumbar region acute August 19, 2024 10:51am Segmental and somatic dysfunction of lumbar region acute Apr il 2024 10:51am Segmental and somatic dysfunction of pelvic region acute Apr il 2024 10:51am Segmental and somatic dysfunction of thoracic region acute A pril 2024 10:51am Spinal stenosis of lumbar region chr onic August 19, 2024 10:51am Segmental and somatic dysfunction of lumbar region acute August 27, 2024 11:50am Segmental and somatic dysfunction of pelvic region acute August 27, 2024 11:50am Segmental and somatic dysfunction of thoracic region acute M ay 2024 11:50am Spinal stenosis of lumbar region chr onic August 27, 2024 11:50am Back pain acute September 01, 2024 7:55am Segmental and somatic dysfunction of lumbar region acute September 01, 2024 7:55am Segmental and somatic dysfunction of pelvic region acute September 01, 2024 7:55am Segmental and somatic dysfunction of thoracic region acute M ay 2024 7:55am Spinal stenosis of lumbar region chr onic September 01, 2024 7:55am Radiculopathy of lumbar region acute September 09, 2024 8:19am Segmental and somatic dysfunction of lumbar region acute September 09, 2024 8:19am Segmental and somatic dysfunction of pelvic region acute September 09, 2024 8:19am Segmental and somatic dysfunction of thoracic region acute M ay 2024 8:19am Spinal stenosis of lumbar region chr onic September 09, 2024 8:19am Back pain acute September 21, 2024 3:49pm Segmental and somatic dysfunction of lumbar region acute Mark e 2024 3:49pm Segmental and somatic dysfunction of pelvic region acute Mark e 2024 3:49pm Segmental and somatic dysfunction of thoracic region acute J une 2024 3:49pm Spinal stenosis of lumbar region chr onic September 21, 2024 3:49pm Back pain acute October 07 9:22am Segmental and somatic dysfunction of cervical region acute J une 2024 9:22am Segmental and somatic dysfunction of lumbar region acute Mark e 2024 9:22am Segmental and somatic dysfunction of pelvic region acute Mark e 2024 9:22am Segmental and somatic dysfunction of thoracic region acute J une 2024 9:22am Spinal stenosis of lumbar region chr onic October 07, 2024 9:22am Radiculopathy of lumbar region acute November 09, 2024 3:41pm Segmental and somatic dysfunction of lumbar region acute Oct 3:41pm Segmental and somatic dysfunction of pelvic region acute Oct 3:41pm Segmental and somatic dysfunction of thoracic region acute J raquel 2024 3:41pm Spinal stenosis at L4-L5 level chron ic November 09, 2024 3:41pm [facility] Work Phone: 1(802) 438-259012-22-2021 NotePatient Outreach (NETNAV) DANIELLE CHRISTY ([id number]) 1960 M Date Time Provider Department 04/12/21 FANY LEON During your visit today, we recorded the following information about you: Fany Leon Population Health Navigator 04/12/2021 9:50 AM Signed POPULATION HEALTH NAVIGATION OUTREACH Action/ I left a message and a my chart message re: pcp No care everywhere Contact made with patient or family member? NO Pt identified by name and : NO Outreach Outcome/Action Unable to reach patient: Left message [facility] message sent Reason for Outreach Attribution: Provider Off-boarding Payer: Payor: [employer] / Plan: vitalclip / Product Type: Other / Care Gap Reviewed:: Reminder: Reminder note to check Health Maintenance for items below Health Maintenance items due: COVID-19 VACCINE(1) Never done DEPRESSION SCREENING Never done HEPATITIS C SCREENING Never done HIV SCREENING Never done ONE PNEUMOVAX PRIOR TO AGE 65 Never done COLORECTAL CANCER SCREENING Never done SHINGRIX VACCINE(1 of 2) Never done LIPID SCREEN due on 01/06/2017 PROSTATE CANCER SCREENING DISCUSSION Never done INFLUENZA(1) Never done Advanced Directives Completed: Have you ever planned for future healthcare decisions with a power of insurance defense attorney, living will, or advance directives? No. Please bring a copy to your next appointment or email to [email or web address] Referrals: N/A Message Sent to Practice: NO Navigation Signature: Fany Leon Population Health Navigator April 12, 2021 9:49 AM Allergies As of Date: 04/12/2021 (No Known Allergies) Date Reviewed: 05/11/2016 Reviewed by: Sowmya Bower Veneer Matcher - Fully Assessed Reason for Visit: Population Health Navigation Outreach [3910] Cmt: Offboarding Prescriptions as of 04/12/2021 - fluocinonide 0.05 % ointment Apply to affected active or severe eczema dermatitis rash eruption(s) selectively of leg (eg., left thigh): twice per day (bid) to three times per day (tid) until clear and then can stop or taper off to bland moisturizer cream (eg. CeraVe cream) as able. AVOID use on face, eyes and eyelids, and deep fold areas. Problem List As Of Date 04/12/2021 Noted Resolved Melanoma [C43.9] 10/04/2011 Insomnia [G47.00] 10/04/2011 Hyperlipidemia [E78.5] 10/11/2011 Melanocytic nevi of trunk [D22.5] 11/29/2011 12/20/2015 Melanocytic nevi of upper extremity or shoulder*11/29/2011 12/20/2015 Melanocytic nevi of face [D22.30] 11/29/2011 Solar Lentigines [L81.4] 11/29/2011 12/20/2015 Actinic skin damage [L57.8] 11/29/2011 Personal history of Malignant Melanoma of skin:*11/29/2011 Atypical nevus of thigh [D22.70] 02/21/2012 12/20/2015 Melanocytic nevi of lower extremity or hip [D22*02/21/2012 12/20/2015 Other acne [L70.8] 02/21/2012 12/20/2015 Epidermal cyst [L72.0] 02/21/2012 12/20/2015 Dermatofibroma of buttock [D23.5] 02/21/2012 12/20/2015 Nummular eczema [L30.0] 06/08/2013 Encounter Status:Closed by EDWARD POPULATION HEALTH NAVIGATOR, FANY Ceja on 04/12/21[facility]12-22-2021 NoteHNO ID: [id number] Author: Fany Brenna Edward Population Health Navigator Service: ? Author Type: ? Type: Progress Notes Filed: 04/12/2021 9:50 AM Note Text: POPULATION HEALTH NAVIGATION OUTREACH Action/FYI I left a message and a my chart message re: pcp No care everywhere Contact made with patient or family member? NO Pt identified by name and : NO Outreach Outcome/Action Unable to reach patient: Left message MyChart message sent Reason for Outreach Attribution: Provider Off-boarding Payer: Payor: [employer] / Plan: [employer]clip / Product Type: Other / Care Gap Reviewed:: Reminder: Reminder note to check Health Maintenance for items below Health Maintenance items due: COVID-19 VACCINE(1) Never done DEPRESSION SCREENING Never done HEPATITIS C SCREENING Never done HIV SCREENING Never done ONE PNEUMOVAX PRIOR TO AGE 67 Never done COLORECTAL CANCER SCREENING Never done SHINGRIX VACCINE(1 of 2) Never done LIPID SCREEN due on 01/06/2017 PROSTATE CANCER SCREENING DISCUSSION Never done INFLUENZA(1) Never done Advanced Directives Completed: Have you ever planned for future healthcare decisions with a power of insurance defense attorney, living will, or advance directives? No. Please bring a copy to your next appointment or email to Referrals: N/A Message Sent to Practice: NO Navigation Signature: Fany Leon Population Health Navigator April 12, 2021 9:49 [facility] Diagnosis Onset Date Resolution Status Asthma chronic Left upper lobe pulmonary nodule chronic Pain in right leg acute Spinal stenosis at L4-L5 level chronic [place] chronic History of malignant melanoma chronic [facility] Work Phone: Evaluation note* Diagnosis Onset Date Resolution Status Encounter to establish care acute Essential hypertension acute Asthma chronic History of gastroesophageal reflux (GERD) chronic Tobacco abuse chronic Influenza A acute 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) acute [facility] Work Phone: Evaluation note* Diagnosis Onset Date Resolution Status GERD (gastroesophageal reflux disease) acute Asthma chronic Tobacco abuse chronic Back pain acute Segmental and somatic dysfunction of lumbar region acute Segmental and somatic dysfunction of pelvic region acute Spinal stenosis at L4-L5 level chronic Back pain acute Segmental and somatic dysfunction of lumbar region acute Segmental and somatic dysfunction of pelvic region acute Spinal stenosis at L4-L5 level chronic Skin nodule acute Swelling of right lower extremity acute [place] chronic History of malignant melanoma chronic Pain in right leg acute Spinal stenosis at L4-L5 level chronic [facility] Work Phone: Progress note Author Jesus Hogan [facility] Note Date/Time February 09, 2025 5 :19pm [facility] [place] [address] OFFICE VISIT Date of Service: 02/09/25 1559 MR#: [id number] Acct: [id number] Name: DANIELLE CHRISTY Rep #: [id number] : 1960 From: Jesus Hogan MD Age/Sex: 64/M [place] [facility] Status: Signed HPI Subjective Date of Service 02/09/25 Chief Complaint F/u for Melanoma and L lung nodule. History of Present Illness 64y.o.man was diagnosed with Melanoma Right lower leg, had excision on 01/03/2011then wide excision with right groin sentinel node dissection on 02/05/2011 for stage IIIA([id number]) disease. Lymph node dissection was done on 05/15/2011 withno residual nodes detected. He received adjuvant Interferon from May, 2011 to May, 2012. He was on observation, came to clinic in 12/2016 and complained of right lower back pain and leg numbness for about 2 months, MRI brain on 01/21/2017 showed no metastasis, artifact in left lateral orbit, correlate for metallic foreign body. CT scan of thoracic and lumbar spine on 02/13/2017 showed mild spondylosis of thoracic spine, mild stenosis at L4/5. [facility] [place] [facility] He is on observation for Melanoma. CXR on 08/18/2020 showed Left lung nodule. CT chest on 08/26/2020 showed 1cm L lingular nodule. PET/CT on 2020 showed no hypermetabolic activity. CT 12/05/2020 showed L lingular nodule 1cm and hilar node 1.1cm. CT chest on 12/11/2021 showed 8mm nodule TANA. PET/CT done on 02/02/2025 should no hypermetabolic activity. He selina observation. Comes for follow up. Feels well. COUNTS INCLUDE 234 BEDS AT THE [facility] Medical History H/O Malignant melanoma Pancreatitis sentinel node biopsy Surgical History History of melanoma excision Family History Father Cancer BCC removed from shoulder Other Diabetes History of blood clots Myocardial infarction Skin cancer Social History Smoking Status: Former smoker quit date: 08/21/19 pack-years: 40 Tobacco: How many years used: 40 alcohol intake: current alcohol intake frequency: a few times a month Alcohol type: hard liquor details: seldom substance use type: does not use caffeine: Yes Type: coffee Intake Vital Signs 07/28/24 08:09 02/09/25 16:01 02/09/25 16:03 Height 5 ft 7 in 5 ft 7 in 5 ft 7 in Weight: 94.461 kg BMI 32.5 BP 103/65 Blood Pressure Location Lt brachial Position Sitting Respiration 18 Pulse 61 Pulse Source Monitor Temp 98.4 F Temperature Source Temporal Artery Pulse Oximetry (%) 99 Oxygen Delivery Method room air Intake Accompanied by: Is patient in pain?: No Allergies No Known Allergies Allergy (Verified 02/09/25 15:59) Medications ?Medication ?Instructions ?Recorded ?Confirmed ?Type acetaminophen 325 mg tablet 325 mg PO PRN PRN Pain 02/09/25 History (Tylenol) Ibuprofen 400 mg PO PRN PRN Pain 01/2802/09/25 History cholecalciferol (vitamin D3) 25 25 mcg PO DAILY 02/09/25 History mcg (1,000 unit) capsule omeprazole 40 mg capsule,delayed 40 mg PO DAILY #90 ca ps 09/05/22 02/09/25 Rx release spacer #1 ea 03/29/23 02/09/25 Rx albuterol 90 mcg-budesonide 80 2 inh inhalation TID AZ N shortness 09/12/25 10/21/25 Rx mcg/actuation HFA aerosol inhaler of breath #10.7 gram s (Airsupra) lisinopril 20 mg tablet 20 mg PO DAILY PRN hypertens ion 02/09/25 History Central Venous Access Central Venous Access: No 02/02/2025 CXR reviewed. RAD/Chest PA and Lateral IMPRESSION: No focal consolidations. Question 10 x 7 mm left lower thoracic opacity which may reflect a pulmonary nodule. Exam Physical Exam Const alert, oriented x3 and no apparent distress General Appearance: cooperative and comfortable HEENT normocephalic, external ears normal and external nose normal Eyes conjunctivae normal and no scleral icterus Neck supple Lymph Lymphatic: no lymphadenopathy noted Chest inspection of chest normal Resp normal respiratory effort, no use of accessory muscles and clear to auscultationbilaterally Cardio regular rate, regular rhythm, S1 normal heart sound, S2 normal heart sound and no murmurs GI normal to inspection, nondistended, normoactive bowel sounds GI Narrative: +R groin scar. no CVA tenderness Back/Spine thoracic and lumbar spine normal to inspection Extremity Extremity Narrative: + scar R leg. + small skin nodule 3mm on the horner. +swelling R. Skin no rashes or lesions noted Neuro oriented x3, CN's II-XII intact bilaterally, moves all extremities and no focal motor deficits Psych mental status grossly normal Coding Level of Care Code Off vis,est,level 4 Exam Problem Focused Diagnoses History of malignant melanoma Z85.820 [place] Q85.9 Assessment and Plan Assessment and Plan (1) History of malignant melanoma: Status: Chronic Comment: No evidence of disease clinically. Plan: To continue observation. (2) [place]: Status: Chronic Comment: L upper lobe nodule, stable, thought to be a hamartoma. PET/CT on 02/04/2024 reviewed, negative. On observation. CXR on 02/02/2025 is stable. Plan: To continue observation. To obtain CXR in 1yr. Plan Details Follow Up: 12 Months 02/09/25 0534 <Electronically signed by Jesus Quarles> Date _ Jesus Hogan MD Cosigner Signature: Date (if applicable) CC: Dr. Amena Friedman MD ~ [facility] Work Phone: Reason for referral (narrative)No reason for referral information availableHemet Global Medical Center Work Phone: Summary Purpose Family History Relationship Condition Age at Onset Recorded Date/T luz elena father Malignant neoplasm Unknown Relationship Condition Age at Onset Recorded Date/T luz elena Not Specified History of blood clots Unknown Malignant neoplasm of skin Unknown Diabetes mellitus Unknown Myocardial infarction Unknown father Malignant neoplasm Unknown Advance Directives No Advanced Directives Records FoundNo Advanced Directives Records Found Chief Complaint and Reason for Visit Chief Complaint 3 M FU LUNG NODULE DIAGNOSING LUNG NODULE 6MO LABS REVIEW CT Reason for Visit Asthma Left upper lobe pulmonary nodule Pain in right leg Spinal stenosis at L4-L5 level [place] History of malignant melanoma Chief Complaint Establish Care FLU A/SWOLLEN LYMPH NODES DOT PHYSICAL/SELF PAY HYPERTENSION; CHEST PAIN HYPERTENSION; CHEST PAIN Reason for Visit Encounter to [facility] care Essential hypertension Asthma History of gastroesophageal reflux (GERD) Tobacco abuse Influenza A Encounter for examination required by Department of Transportation (DOT) Chief Complaint 6 M FU REEVAL BACK PAIN Back pain 1YR LABS SWELLING TO LLE DIAGNOSING LUNG NODULE BLE SWELLING Reason for Visit GERD (gastroesophage al reflux disease) Asthma Tobacco abuse Back pain Segmental and somatic dysfunction of lumbar region Segmental and somatic dysfunction of pelvic region Spinal stenosis at L4-L5 level Back pain Segmental and somatic dysfunction of lumbar region Segmental and somatic dysfunction of pelvic region Spinal stenosis at L4-L5 level Skin nodule Swelling of right lower extremity [place] History of malignant melanoma Pain in right leg Spinal stenosis at L4-L5 level Chief Complaint Admit Date REEVAL July 28, 2024 7:56 am BACK PAIN August 04, 2024 10: 11am BACK PAIN August 12, 2024 8:1 8am BACK PAIN August 19, 2024 10: 51am BACK PAIN August 27, 2024 11:50a m BACK PAIN September 01, 2024 7:55a m Reason for Visit Admit Date Segmental and somatic dysfunction of lum bar region July 28, 2024 7:56am Segmental and somatic dysfunction of pel reyna region July 28, 2024 7:56am Segmental and somatic dysfunction of tho racic region July 28, 2024 7:56am Spinal stenosis of lumbar region July 282024 7:56am Segmental and somatic dysfunction of lum bar region August 04, 2024 10:11am Segmental and somatic dysfunction of pel reyna region August 04, 2024 10:11am Segmental and somatic dysfunction of tho racic region August 04, 2024 10:11am Spinal stenosis at L4-L5 level July 10:11am Segmental and somatic dysfunction of lum bar region August 12, 2024 8:18am Segmental and somatic dysfunction of pel reyna region August 12, 2024 8:18am Segmental and somatic dysfunction of tho racic region August 12, 2024 8:18am Spinal stenosis at L4-L5 level July 8:18am Radiculopathy of lumbar region July 10:51am Segmental and somatic dysfunction of lum bar region August 19, 2024 10:51am Segmental and somatic dysfunction of pel reyna region August 19, 2024 10:51am Segmental and somatic dysfunction of tho racic region August 19, 2024 10:51am Spinal stenosis of lumbar region July 232024 10:51am Segmental and somatic dysfunction of lum bar region August 27, 2024 11:50am Segmental and somatic dysfunction of pel reyna region August 27, 2024 11:50am Segmental and somatic dysfunction of tho racic region August 27, 2024 11:50am Spinal stenosis of lumbar region August 11:50am Segmental and somatic dysfunction of lum bar region September 01, 2024 7:55am Segmental and somatic dysfunction of pel reyna region September 01, 2024 7:55am Segmental and somatic dysfunction of tho racic region September 01, 2024 7:55am Spinal stenosis of lumbar region August 7:55am Chief Complaint Admit Date REEVAL July 28, 2024 7:56 am BACK PAIN August 04, 2024 10: 11am BACK PAIN August 12, 2024 8:1 8am BACK PAIN August 19, 2024 10: 51am BACK PAIN August 27, 2024 11:50a m BACK PAIN September 01, 2024 7:55a m BACK PAIN September 09, 2024 8:19a m Reason for Visit Admit Date Segmental and somatic dysfunction of lum bar region July 28, 2024 7:56am Segmental and somatic dysfunction of pel reyna region July 28, 2024 7:56am Segmental and somatic dysfunction of tho racic region July 28, 2024 7:56am Spinal stenosis of lumbar region July 282024 7:56am Segmental and somatic dysfunction of lum bar region August 04, 2024 10:11am Segmental and somatic dysfunction of pel reyna region August 04, 2024 10:11am Segmental and somatic dysfunction of tho racic region August 04, 2024 10:11am Spinal stenosis at L4-L5 level July 10:11am Segmental and somatic dysfunction of lum bar region August 12, 2024 8:18am Segmental and somatic dysfunction of pel reyna region August 12, 2024 8:18am Segmental and somatic dysfunction of tho racic region August 12, 2024 8:18am Spinal stenosis at L4-L5 level July 8:18am Radiculopathy of lumbar region July 10:51am Segmental and somatic dysfunction of lum bar region August 19, 2024 10:51am Segmental and somatic dysfunction of pel reyna region August 19, 2024 10:51am Segmental and somatic dysfunction of tho racic region August 19, 2024 10:51am Spinal stenosis of lumbar region July 232024 10:51am Segmental and somatic dysfunction of lum bar region August 27, 2024 11:50am Segmental and somatic dysfunction of pel reyna region August 27, 2024 11:50am Segmental and somatic dysfunction of tho racic region August 27, 2024 11:50am Spinal stenosis of lumbar region August 11:50am Back pain September 01, 2024 7:55a m Segmental and somatic dysfunction of lum bar region September 01, 2024 7:55am Segmental and somatic dysfunction of pel reyna region September 01, 2024 7:55am Segmental and somatic dysfunction of tho racic region September 01, 2024 7:55am Spinal stenosis of lumbar region August 7:55am Radiculopathy of lumbar region September 09, 2024 8:19am Segmental and somatic dysfunction of lum bar region September 09, 2024 8:19am Segmental and somatic dysfunction of pel reyna region September 09, 2024 8:19am Segmental and somatic dysfunction of tho racic region September 09, 2024 8:19am Chief Complaint Admit Date REEVAL July 28, 2024 7:56 am BACK PAIN August 04, 2024 10: 11am BACK PAIN August 12, 2024 8:1 8am BACK PAIN August 19, 2024 10: 51am BACK PAIN August 27, 2024 11:50a m BACK PAIN September 01, 2024 7:55a m BACK PAIN September 09, 2024 8:19a m BACK PAIN September 21, 2024 3:49p m Reason for Visit Admit Date Segmental and somatic dysfunction of lum bar region July 28, 2024 7:56am Segmental and somatic dysfunction of pel reyna region July 28, 2024 7:56am Segmental and somatic dysfunction of tho racic region July 28, 2024 7:56am Spinal stenosis of lumbar region July 282024 7:56am Segmental and somatic dysfunction of lum bar region August 04, 2024 10:11am Segmental and somatic dysfunction of pel reyna region August 04, 2024 10:11am Segmental and somatic dysfunction of tho racic region August 04, 2024 10:11am Spinal stenosis at L4-L5 level July 10:11am Segmental and somatic dysfunction of lum bar region August 12, 2024 8:18am Segmental and somatic dysfunction of pel reyna region August 12, 2024 8:18am Segmental and somatic dysfunction of tho racic region August 12, 2024 8:18am Spinal stenosis at L4-L5 level July 8:18am Radiculopathy of lumbar region July 10:51am Segmental and somatic dysfunction of lum bar region August 19, 2024 10:51am Segmental and somatic dysfunction of pel reyna region August 19, 2024 10:51am Segmental and somatic dysfunction of tho racic region August 19, 2024 10:51am Spinal stenosis of lumbar region July 232024 10:51am Segmental and somatic dysfunction of lum bar region August 27, 2024 11:50am Segmental and somatic dysfunction of pel reyna region August 27, 2024 11:50am Segmental and somatic dysfunction of tho racic region August 27, 2024 11:50am Spinal stenosis of lumbar region August 11:50am Back pain September 01, 2024 7:55a m Segmental and somatic dysfunction of lum bar region September 01, 2024 7:55am Segmental and somatic dysfunction of pel reyna region September 01, 2024 7:55am Segmental and somatic dysfunction of tho racic region September 01, 2024 7:55am Spinal stenosis of lumbar region August 7:55am Radiculopathy of lumbar region September 09, 2024 8:19am Segmental and somatic dysfunction of lum bar region September 09, 2024 8:19am Segmental and somatic dysfunction of pel reyna region September 09, 2024 8:19am Segmental and somatic dysfunction of tho racic region September 09, 2024 8:19am Spinal stenosis of lumbar region August 8:19am Radiculopathy of lumbar region September 21, 2024 3:49pm Segmental and somatic dysfunction of lum bar region September 21, 2024 3:49pm Segmental and somatic dysfunction of pel reyna region September 21, 2024 3:49pm Segmental and somatic dysfunction of tho racic region September 21, 2024 3:49pm Spinal stenosis of lumbar region September 3:49pm Chief Complaint Admit Date REEVAL July 28, 2024 7:56 am BACK PAIN August 04, 2024 10: 11am BACK PAIN August 12, 2024 8:1 8am BACK PAIN August 19, 2024 10: 51am BACK PAIN August 27, 2024 11:50a m BACK PAIN September 01, 2024 7:55a m BACK PAIN September 09, 2024 8:19a m BACK PAIN September 21, 2024 3:49p m BACK PAIN October 07, 2024 9:22 am Reason for Visit Admit Date Segmental and somatic dysfunction of lum bar region July 28, 2024 7:56am Segmental and somatic dysfunction of pel reyna region July 28, 2024 7:56am Segmental and somatic dysfunction of tho racic region July 28, 2024 7:56am Spinal stenosis of lumbar region July 282024 7:56am Segmental and somatic dysfunction of lum bar region August 04, 2024 10:11am Segmental and somatic dysfunction of pel reyna region August 04, 2024 10:11am Segmental and somatic dysfunction of tho racic region August 04, 2024 10:11am Spinal stenosis at L4-L5 level July 10:11am Segmental and somatic dysfunction of lum bar region August 12, 2024 8:18am Segmental and somatic dysfunction of pel reyna region August 12, 2024 8:18am Segmental and somatic dysfunction of tho racic region August 12, 2024 8:18am Spinal stenosis at L4-L5 level July 8:18am Radiculopathy of lumbar region July 10:51am Segmental and somatic dysfunction of lum bar region August 19, 2024 10:51am Segmental and somatic dysfunction of pel reyna region August 19, 2024 10:51am Segmental and somatic dysfunction of tho racic region August 19, 2024 10:51am Spinal stenosis of lumbar region July 232024 10:51am Segmental and somatic dysfunction of lum bar region August 27, 2024 11:50am Segmental and somatic dysfunction of pel reyna region August 27, 2024 11:50am Segmental and somatic dysfunction of tho racic region August 27, 2024 11:50am Spinal stenosis of lumbar region August 11:50am Back pain September 01, 2024 7:55a m Segmental and somatic dysfunction of lum bar region September 01, 2024 7:55am Segmental and somatic dysfunction of pel reyna region September 01, 2024 7:55am Segmental and somatic dysfunction of tho racic region September 01, 2024 7:55am Spinal stenosis of lumbar region August 7:55am Radiculopathy of lumbar region September 09, 2024 8:19am Segmental and somatic dysfunction of lum bar region September 09, 2024 8:19am Segmental and somatic dysfunction of pel reyna region September 09, 2024 8:19am Segmental and somatic dysfunction of tho racic region September 09, 2024 8:19am Spinal stenosis of lumbar region August 8:19am Back pain September 21, 2024 3:49p m Segmental and somatic dysfunction of lum bar region September 21, 2024 3:49pm Segmental and somatic dysfunction of pel reyna region September 21, 2024 3:49pm Segmental and somatic dysfunction of tho racic region September 21, 2024 3:49pm Spinal stenosis of lumbar region September 3:49pm Radiculopathy of lumbar region September 9:22am Segmental and somatic dysfunction of cer vical region October 07, 2024 9:22am Segmental and somatic dysfunction of lum bar region October 07, 2024 9:22am Segmental and somatic dysfunction of pel reyna region October 07, 2024 9:22am Segmental and somatic dysfunction of tho racic region October 07, 2024 9:22am Spinal stenosis at L4-L5 level September 9:22am Spinal stenosis of lumbar region October 072024 9:22am Chief Complaint Admit Date REEVAL July 28, 2024 7:56 am BACK PAIN August 04, 2024 10: 11am BACK PAIN August 12, 2024 8:1 8am BACK PAIN August 19, 2024 10: 51am BACK PAIN August 27, 2024 11:50a m BACK PAIN September 01, 2024 7:55a m BACK PAIN September 09, 2024 8:19a m BACK PAIN September 21, 2024 3:49p m BACK PAIN October 07, 2024 9:22 am BACK PAIN November 09, 2024 3:41 pm Reason for Visit Admit Date Segmental and somatic dysfunction of lum bar region July 28, 2024 7:56am Segmental and somatic dysfunction of pel reyna region July 28, 2024 7:56am Segmental and somatic dysfunction of tho racic region July 28, 2024 7:56am Spinal stenosis of lumbar region July 282024 7:56am Segmental and somatic dysfunction of lum bar region August 04, 2024 10:11am Segmental and somatic dysfunction of pel reyna region August 04, 2024 10:11am Segmental and somatic dysfunction of tho racic region August 04, 2024 10:11am Spinal stenosis at L4-L5 level July 10:11am Segmental and somatic dysfunction of lum bar region August 12, 2024 8:18am Segmental and somatic dysfunction of pel reyna region August 12, 2024 8:18am Segmental and somatic dysfunction of tho racic region August 12, 2024 8:18am Spinal stenosis at L4-L5 level July 8:18am Radiculopathy of lumbar region July 10:51am Segmental and somatic dysfunction of lum bar region August 19, 2024 10:51am Segmental and somatic dysfunction of pel reyna region August 19, 2024 10:51am Segmental and somatic dysfunction of tho racic region August 19, 2024 10:51am Spinal stenosis of lumbar region July 232024 10:51am Segmental and somatic dysfunction of lum bar region August 27, 2024 11:50am Segmental and somatic dysfunction of pel reyna region August 27, 2024 11:50am Segmental and somatic dysfunction of tho racic region August 27, 2024 11:50am Spinal stenosis of lumbar region August 11:50am Back pain September 01, 2024 7:55a m Segmental and somatic dysfunction of lum bar region September 01, 2024 7:55am Segmental and somatic dysfunction of pel reyna region September 01, 2024 7:55am Segmental and somatic dysfunction of tho racic region September 01, 2024 7:55am Spinal stenosis of lumbar region August 7:55am Radiculopathy of lumbar region September 09, 2024 8:19am Segmental and somatic dysfunction of lum bar region September 09, 2024 8:19am Segmental and somatic dysfunction of pel reyna region September 09, 2024 8:19am Segmental and somatic dysfunction of tho racic region September 09, 2024 8:19am Spinal stenosis of lumbar region August 8:19am Back pain September 21, 2024 3:49p m Segmental and somatic dysfunction of lum bar region September 21, 2024 3:49pm Segmental and somatic dysfunction of pel reyna region September 21, 2024 3:49pm Segmental and somatic dysfunction of tho racic region September 21, 2024 3:49pm Spinal stenosis of lumbar region September 3:49pm Back pain October 07, 2024 9:22 am Segmental and somatic dysfunction of cer vical region October 07, 2024 9:22am Segmental and somatic dysfunction of lum bar region October 07, 2024 9:22am Segmental and somatic dysfunction of pel reyna region October 07, 2024 9:22am Segmental and somatic dysfunction of tho racic region October 07, 2024 9:22am Spinal stenosis of lumbar region October 072024 9:22am Radiculopathy of lumbar region October 3:41pm Segmental and somatic dysfunction of lum bar region November 09, 2024 3:41pm Segmental and somatic dysfunction of pel reyna region November 09, 2024 3:41pm Segmental and somatic dysfunction of tho racic region November 09, 2024 3:41pm Spinal stenosis at L4-L5 level October 3:41pm Chief Complaint Admit Date BACK PAIN August 04, 2024 10: 11am BACK PAIN August 12, 2024 8:1 8am BACK PAIN August 19, 2024 10: 51am BACK PAIN August 27, 2024 11:50a m BACK PAIN September 01, 2024 7:55a m BACK PAIN September 09, 2024 8:19a m BACK PAIN September 21, 2024 3:49p m BACK PAIN October 07, 2024 9:22 am BACK PAIN November 09, 2024 3:41 pm BACK PAIN December 01, 2024 7: 52am Reason for Visit Admit Date Segmental and somatic dysfunction of lum bar region August 04, 2024 10:11am Segmental and somatic dysfunction of pel reyna region August 04, 2024 10:11am Segmental and somatic dysfunction of tho racic region August 04, 2024 10:11am Spinal stenosis at L4-L5 level July 10:11am Segmental and somatic dysfunction of lum bar region August 12, 2024 8:18am Segmental and somatic dysfunction of pel reyna region August 12, 2024 8:18am Segmental and somatic dysfunction of tho racic region August 12, 2024 8:18am Spinal stenosis at L4-L5 level July 8:18am Radiculopathy of lumbar region July 10:51am Segmental and somatic dysfunction of lum bar region August 19, 2024 10:51am Segmental and somatic dysfunction of pel reyna region August 19, 2024 10:51am Segmental and somatic dysfunction of tho racic region August 19, 2024 10:51am Spinal stenosis of lumbar region July 232024 10:51am Segmental and somatic dysfunction of lum bar region August 27, 2024 11:50am Segmental and somatic dysfunction of pel reyna region August 27, 2024 11:50am Segmental and somatic dysfunction of tho racic region August 27, 2024 11:50am Spinal stenosis of lumbar region August 11:50am Back pain September 01, 2024 7:55a m Segmental and somatic dysfunction of lum bar region September 01, 2024 7:55am Segmental and somatic dysfunction of pel reyna region September 01, 2024 7:55am Segmental and somatic dysfunction of tho racic region September 01, 2024 7:55am Spinal stenosis of lumbar region August 7:55am Radiculopathy of lumbar region September 09, 2024 8:19am Segmental and somatic dysfunction of lum bar region September 09, 2024 8:19am Segmental and somatic dysfunction of pel reyna region September 09, 2024 8:19am Segmental and somatic dysfunction of tho racic region September 09, 2024 8:19am Spinal stenosis of lumbar region August 8:19am Back pain September 21, 2024 3:49p m Segmental and somatic dysfunction of lum bar region September 21, 2024 3:49pm Segmental and somatic dysfunction of pel reyna region September 21, 2024 3:49pm Segmental and somatic dysfunction of tho racic region September 21, 2024 3:49pm Spinal stenosis of lumbar region September 3:49pm Back pain October 07, 2024 9:22 am Segmental and somatic dysfunction of cer vical region October 07, 2024 9:22am Segmental and somatic dysfunction of lum bar region October 07, 2024 9:22am Segmental and somatic dysfunction of pel reyna region October 07, 2024 9:22am Segmental and somatic dysfunction of tho racic region October 07, 2024 9:22am Spinal stenosis of lumbar region October 072024 9:22am Segmental and somatic dysfunction of lum bar region November 09, 2024 3:41pm Segmental and somatic dysfunction of pel reyna region November 09, 2024 3:41pm Segmental and somatic dysfunction of tho racic region November 09, 2024 3:41pm Spinal stenosis at L4-L5 level October 3:41pm Radiculopathy of lumbar region December 012024 7:52am Segmental and somatic dysfunction of lum bar region December 01, 2024 7:52am Segmental and somatic dysfunction of pel reyna region December 01, 2024 7:52am Segmental and somatic dysfunction of tho racic region December 01, 2024 7:52am Spinal stenosis at L4-L5 level December 012024 7:52am Chief Complaint Admit Date BACK PAIN August 27, 2024 11:50a m BACK PAIN September 01, 2024 7:55a m BACK PAIN September 09, 2024 8:19a m BACK PAIN September 21, 2024 3:49p m BACK PAIN October 07, 2024 9:22 am BACK PAIN November 09, 2024 3:41 pm BACK PAIN December 01, 2024 7: 52am BACK PAIN December 23, 2024 7:59am Reason for Visit Admit Date Segmental and somatic dysfunction of lum bar region August 27, 2024 11:50am Segmental and somatic dysfunction of pel reyna region August 27, 2024 11:50am Segmental and somatic dysfunction of tho racic region August 27, 2024 11:50am Spinal stenosis of lumbar region August 11:50am Back pain September 01, 2024 7:55a m Segmental and somatic dysfunction of lum bar region September 01, 2024 7:55am Segmental and somatic dysfunction of pel reyna region September 01, 2024 7:55am Segmental and somatic dysfunction of tho racic region September 01, 2024 7:55am Spinal stenosis of lumbar region August 7:55am Radiculopathy of lumbar region September 09, 2024 8:19am Segmental and somatic dysfunction of lum bar region September 09, 2024 8:19am Segmental and somatic dysfunction of pel reyna region September 09, 2024 8:19am Segmental and somatic dysfunction of tho racic region September 09, 2024 8:19am Spinal stenosis of lumbar region August 8:19am Back pain September 21, 2024 3:49p m Segmental and somatic dysfunction of lum bar region September 21, 2024 3:49pm Segmental and somatic dysfunction of pel reyna region September 21, 2024 3:49pm Segmental and somatic dysfunction of tho racic region September 21, 2024 3:49pm Spinal stenosis of lumbar region September 3:49pm Back pain October 07, 2024 9:22 am Segmental and somatic dysfunction of cer vical region October 07, 2024 9:22am Segmental and somatic dysfunction of lum bar region October 07, 2024 9:22am Segmental and somatic dysfunction of pel reyna region October 07, 2024 9:22am Segmental and somatic dysfunction of tho racic region October 07, 2024 9:22am Spinal stenosis of lumbar region October 072024 9:22am Segmental and somatic dysfunction of lum bar region November 09, 2024 3:41pm Segmental and somatic dysfunction of pel reyna region November 09, 2024 3:41pm Segmental and somatic dysfunction of tho racic region November 09, 2024 3:41pm Spinal stenosis at L4-L5 level October 3:41pm Segmental and somatic dysfunction of lum bar region December 01, 2024 7:52am Segmental and somatic dysfunction of pel reyna region December 01, 2024 7:52am Segmental and somatic dysfunction of tho racic region December 01, 2024 7:52am Spinal stenosis of lumbar region December 01, 2024 7:52am Radiculopathy of lumbar region December 23, 2024 7:59am Segmental and somatic dysfunction of cer vical region December 23, 2024 7:59am Segmental and somatic dysfunction of lum bar region December 23, 2024 7:59am Segmental and somatic dysfunction of pel reyna region December 23, 2024 7:59am Segmental and somatic dysfunction of tho racic region December 23, 2024 7:59am Spinal stenosis at L4-L5 level December 23, 2024 7:59am Spinal stenosis of lumbar region Septemb 2024 7:59am Chief Complaint Admit Date BACK PAIN November 09, 2024 3:41 pm BACK PAIN December 01, 2024 7: 52am BACK PAIN December 23, 2024 7:59am CHEST PA & LAT February 02, 2025 3 :18pm 1YR LABS PRIOR REVIEW CXR February 09, 2025 3:46pm Reason for Visit Admit Date Segmental and somatic dysfunction of lum bar region November 09, 2024 3:41pm Segmental and somatic dysfunction of pel reyna region November 09, 2024 3:41pm Segmental and somatic dysfunction of tho racic region November 09, 2024 3:41pm Spinal stenosis at L4-L5 level October 3:41pm Segmental and somatic dysfunction of lum bar region December 01, 2024 7:52am Segmental and somatic dysfunction of pel reyna region December 01, 2024 7:52am Segmental and somatic dysfunction of tho racic region December 01, 2024 7:52am Spinal stenosis of lumbar region December 01, 2024 7:52am Segmental and somatic dysfunction of lum bar region December 23, 2024 7:59am Segmental and somatic dysfunction of pel reyna region December 23, 2024 7:59am Segmental and somatic dysfunction of tho racic region December 23, 2024 7:59am Spinal stenosis of lumbar region Septemb 2024 7:59am [place] February 09, 2025 3 :46pm History of malignant melanoma February 092024 3:46pm Additional Source Comments (unrecognized sect ion and content) No Status Records FoundNo Status Records Found INFORMATION SOURCE (unrecogn ized section and content) DATE CREATED AUTHOR 05/19/2021 [facility] DATE CREATED AUTHOR AUTHOR'S ORGANIZ ATION 02/24/2025 [facility] Care Teams (unrecognized sec tion and content) Team Status: Active Member Role Status Dates Dr. Benitez Navarro III, MD Family Provider Active Dr. Amena Friedman MD Primary Care Provider Active Team Status: Inactive Member Role Status Dates No Primary Care Physician Primary Care Provider Active Dr. Amena Friedman MD Attending Provider Active Team Status: Inactive Member Role Status Dates Dr. Amena Friedman MD Primary Care Provider, Referri ng Provider Active Netta VERDUZCO PA Attending Provider Active Team Status: Inactive Member Role Status Dates Dr. Amena Friedman MD Primary Care Provider, Referri ng Provider Active Jerman VERDUZCO, PA Attending Provider Active Team Status: Active Member Role Status Dates Dr. Amena Friedman MD Primary Care Pro vider, Referring Provider, Other Provider Active Dr. Marbin Mike MD Attending Provider Active Team Status: Inactive Member Role Status Dates Dr. Amena Friedman MD Primary Care Pro vider, Attending Provider, Referring Provider Active Team Status: Inactive Member Role Status Dates No Primary Care Physician Referring Provider Active Jigna De La Rosa INTERNAL CONTROL ANALYST, INTERNAL CONTROL ANALYST-C Attending Provider Active Dr. Amena Friedman MD Primary Care Provider Active Team Status: Inactive Member Role Status Dates Dr. Amena Friedman MD Primary Care Provider, Referri ng Provider Active Dr. Indy Man DC Attending Provider Active Team Status: Inactive Member Role Status Dates Dr. Amean Friedman MD Primary Care Provider, Referri ng Provider Active Dr. Jesus Hogan MD Attending Provider Active Team Status: Active Member Role Status Dates Dr. Amena Friedman MD Primary Care Provider Active Dr. Lawson Navarro MD Attending Provider Active Team Status: Active Member Role Status Dates Dr. Benitez Navarro III, MD Primary Care Provider, Famil y Provider Active Dr. Jesus Hogan MD Attending Provider, Referring Pro vider Active Team Status: Inactive Member Role Status Dates Dr. Amena Friedman MD Primary Care Provider Active Dr. Jesus Hogan MD Attending Provider, Referring Pro vider Active Team Status: Active Member Role Status Dates Dr. Amena Friedman MD Primary Care Provider Active Team Status: Inactive Member Role Status Dates Dr. Amena Friedman MD Primary Care Provider Active Start: July 28, 2024 End: July 28, 2024 Dr. Amena Friedman MD Referring Provider Active Start: July 28, 2024 End: July 28, 2024 Dr. Indy Man DC Attending Provider Active S tart: July 28, 2024 End: July 28, 2024 Team Status: Inactive Member Role Status Dates Dr. Amena Friedman MD Primary Care Provider Active Start: August 04, 2024 End: August 04, 2024 Dr. Amena Friedman MD Referring Provider Active Start: August 04, 2024 End: August 04, 2024 Dr. Indy Man DC Attending Provider Active S tart: August 04, 2024 End: August 04, 2024 Team Status: Inactive Member Role Status Dates Dr. Amena Friedman MD Primary Care Provider Active Start: August 12, 2024 End: August 12, 2024 Dr. Amena Friedman MD Referring Provider Active Start: August 12, 2024 End: August 12, 2024 Dr. Indy Man DC Attending Provider Active S tart: August 12, 2024 End: August 12, 2024 Team Status: Inactive Member Role Status Dates Dr. Amena Friedman MD Primary Care Provider Active Start: August 19, 2024 End: August 19, 2024 Dr. Amena Friedman MD Referring Provider Active Start: August 19, 2024 End: August 19, 2024 Dr. Indy Man DC Attending Provider Active S tart: August 19, 2024 End: August 19, 2024 Team Status: Inactive Member Role Status Dates Dr. Amena Friedman MD Primary Care Provider Active Start: August 27, 2024 End: August 27, 2024 Dr. Amena Friedman MD Referring Provider Active Start: August 27, 2024 End: August 27, 2024 Dr. Indy Man DC Attending Provider Active S tart: August 27, 2024 End: August 27, 2024 Team Status: Inactive Member Role Status Dates Dr. Amena Friedman MD Primary Care Provider Active Start: September 01, 2024 End: September 01, 2024 Dr. Amena Friedman MD Referring Provider Active Start: September 01, 2024 End: September 01, 2024 Dr. Indy Man DC Attending Provider Active S tart: September 01, 2024 End: September 01, 2024 Team Status: Inactive Member Role Status Dates Dr. Amena Friedman MD Primary Care Provider Active Start: September 09, 2024 End: September 09, 2024 Dr. Amena Friedman MD Referring Provider Active Start: September 09, 2024 End: September 09, 2024 Dr. Indy Man DC Attending Provider Active S tart: September 09, 2024 End: September 09, 2024 Team Status: Inactive Member Role Status Dates Dr. Amena Friedman MD Primary Care Provider Active Start: September 21, 2024 End: September 21, 2024 Dr. Amena Friedman MD Referring Provider Active Start: September 21, 2024 End: September 21, 2024 Dr. Indy Man DC Attending Provider Active S tart: September 21, 2024 End: September 21, 2024 Team Status: Inactive Member Role Status Dates Dr. Amena Friedman MD Primary Care Provider Active Start: October 07, 2024 End: October 07, 2024 Dr. Amena Friedman MD Referring Provider Active Start: October 07, 2024 End: October 07, 2024 Dr. Indy Man DC Attending Provider Active S tart: October 07, 2024 End: October 07, 2024 Team Status: Active Member Role/Relationship Status Dates Dr. Amena Friedman MD Primary Care Provider Active Team Status: Inactive Member Role/Relationship Status Dates Dr. Amena Friedman MD Primary Care Provider Active Start: July 28, 2024 End: July 28, 2024 Dr. Amena Friedman MD Referring Provider Active Start: July 28, 2024 End: July 28, 2024 Dr. Indy Man DC Attending Provider Active S tart: July 28, 2024 End: July 28, 2024 Team Status: Inactive Member Role/Relationship Status Dates Dr. Amena Friedman MD Primary Care Provider Active Start: August 04, 2024 End: August 04, 2024 Dr. Amena Friedman MD Referring Provider Active Start: August 04, 2024 End: August 04, 2024 Dr. Indy Man DC Attending Provider Active S tart: August 04, 2024 End: August 04, 2024 Team Status: Inactive Member Role/Relationship Status Dates Dr. Amena Friedman MD Primary Care Provider Active Start: August 12, 2024 End: August 12, 2024 Dr. Amena Friedman MD Referring Provider Active Start: August 12, 2024 End: August 12, 2024 Dr. Indy Man DC Attending Provider Active S tart: August 12, 2024 End: August 12, 2024 Team Status: Inactive Member Role/Relationship Status Dates Dr. Amena Friedman MD Primary Care Provider Active Start: August 19, 2024 End: August 19, 2024 Dr. Amena Friedman MD Referring Provider Active Start: August 19, 2024 End: August 19, 2024 Dr. Indy Man DC Attending Provider Active S tart: August 19, 2024 End: August 19, 2024 Team Status: Inactive Member Role/Relationship Status Dates Dr. Amena Friedman MD Primary Care Provider Active Start: August 27, 2024 End: August 27, 2024 Dr. Amena Friedman MD Referring Provider Active Start: August 27, 2024 End: August 27, 2024 Dr. Indy Man DC Attending Provider Active S tart: August 27, 2024 End: August 27, 2024 Team Status: Inactive Member Role/Relationship Status Dates Dr. Amena Friedman MD Primary Care Provider Active Start: September 01, 2024 End: September 01, 2024 Dr. Amena Friedman MD Referring Provider Active Start: September 01, 2024 End: September 01, 2024 Dr. Indy Man DC Attending Provider Active S tart: September 01, 2024 End: September 01, 2024 Team Status: Inactive Member Role/Relationship Status Dates Dr. Amena Friedman MD Primary Care Provider Active Start: September 09, 2024 End: September 09, 2024 Dr. Amena Friedman MD Referring Provider Active Start: September 09, 2024 End: September 09, 2024 Dr. Indy Man DC Attending Provider Active S tart: September 09, 2024 End: September 09, 2024 Team Status: Inactive Member Role/Relationship Status Dates Dr. Amena Friedman MD Primary Care Provider Active Start: September 21, 2024 End: September 21, 2024 Dr. Amena Friedman MD Referring Provider Active Start: September 21, 2024 End: September 21, 2024 Dr. Indy Man DC Attending Provider Active S tart: September 21, 2024 End: September 21, 2024 Team Status: Inactive Member Role/Relationship Status Dates Dr. Amena Friedman MD Primary Care Provider Active Start: October 07, 2024 End: October 07, 2024 Dr. Amena Friedman MD Referring Provider Active Start: October 07, 2024 End: October 07, 2024 Dr. Indy Man DC Attending Provider Active S tart: October 07, 2024 End: October 07, 2024 Team Status: Inactive Member Role/Relationship Status Dates Dr. Amena Friedman MD Primary Care Provider Active Start: November 09, 2024 End: November 09, 2024 Dr. Amena Friedman MD Referring Provider Active Start: November 09, 2024 End: November 09, 2024 Dr. Indy Man DC Attending Provider Active S tart: November 09, 2024 End: November 09, 2024 Team Status: Inactive Member Role/Relationship Status Dates Dr. Amena Friedman MD Primary Care Provider Active Start: August 04, 2024 End: August 04, 2024 Dr. Amena Friedman MD Referring Provider Active Start: August 04, 2024 End: August 04, 2024 Dr. Indy Man DC Attending Provider Active S tart: August 04, 2024 End: August 04, 2024 Team Status: Inactive Member Role/Relationship Status Dates Dr. Amena Friedman MD Primary Care Provider Active Start: August 12, 2024 End: August 12, 2024 Dr. Amena Friedman MD Referring Provider Active Start: August 12, 2024 End: August 12, 2024 Dr. Indy Man DC Attending Provider Active S tart: August 12, 2024 End: August 12, 2024 Team Status: Inactive Member Role/Relationship Status Dates Dr. Amena Friedman MD Primary Care Provider Active Start: August 19, 2024 End: August 19, 2024 Dr. Amena Friedman MD Referring Provider Active Start: August 19, 2024 End: August 19, 2024 Dr. Indy Man DC Attending Provider Active S tart: August 19, 2024 End: August 19, 2024 Team Status: Inactive Member Role/Relationship Status Dates Dr. Amena Friedman MD Primary Care Provider Active Start: August 27, 2024 End: August 27, 2024 Dr. Amena Friedman MD Referring Provider Active Start: August 27, 2024 End: August 27, 2024 Dr. Indy Man DC Attending Provider Active S tart: August 27, 2024 End: August 27, 2024 Team Status: Inactive Member Role/Relationship Status Dates Dr. Amena Friedman MD Primary Care Provider Active Start: September 01, 2024 End: September 01, 2024 Dr. Amena Friedman MD Referring Provider Active Start: September 01, 2024 End: September 01, 2024 Dr. Indy Man DC Attending Provider Active S tart: September 01, 2024 End: September 01, 2024 Team Status: Inactive Member Role/Relationship Status Dates Dr. Amena Friedman MD Primary Care Provider Active Start: September 09, 2024 End: September 09, 2024 Dr. Amena Friedman MD Referring Provider Active Start: September 09, 2024 End: September 09, 2024 Dr. Indy Man DC Attending Provider Active S tart: September 09, 2024 End: September 09, 2024 Team Status: Inactive Member Role/Relationship Status Dates Dr. Amena Friedman MD Primary Care Provider Active Start: September 21, 2024 End: September 21, 2024 Dr. Amena Friedman MD Referring Provider Active Start: September 21, 2024 End: September 21, 2024 Dr. Indy Man DC Attending Provider Active S tart: September 21, 2024 End: September 21, 2024 Team Status: Inactive Member Role/Relationship Status Dates Dr. Amena Friedman MD Primary Care Provider Active Start: October 07, 2024 End: October 07, 2024 Dr. Amena Friedman MD Referring Provider Active Start: October 07, 2024 End: October 07, 2024 Dr. Indy Man DC Attending Provider Active S tart: October 07, 2024 End: October 07, 2024 Team Status: Inactive Member Role/Relationship Status Dates Dr. Amena Friedman MD Primary Care Provider Active Start: November 09, 2024 End: November 09, 2024 Dr. Amena Friedman MD Referring Provider Active Start: November 09, 2024 End: November 09, 2024 Dr. Indy Man DC Attending Provider Active S tart: November 09, 2024 End: November 09, 2024 Team Status: Inactive Member Role/Relationship Status Dates Dr. Amena Friedman MD Primary Care Provider Active Start: December 01, 2024 End: December 01, 2024 Dr. Amena Friedman MD Referring Provider Active Start: December 01, 2024 End: December 01, 2024 Dr. Indy Man DC Attending Provider Active S tart: December 01, 2024 End: December 01, 2024 Team Status: Inactive Member Role/Relationship Status Dates Dr. Amena Friedman MD Primary Care Provider Active Start: August 27, 2024 End: August 27, 2024 Dr. Amena Friedman MD Referring Provider Active Start: August 27, 2024 End: August 27, 2024 Dr. Indy Man DC Attending Provider Active S tart: August 27, 2024 End: August 27, 2024 Team Status: Inactive Member Role/Relationship Status Dates Dr. Amena Friedman MD Primary Care Provider Active Start: September 01, 2024 End: September 01, 2024 Dr. Amena Friedman MD Referring Provider Active Start: September 01, 2024 End: September 01, 2024 Dr. Indy Man DC Attending Provider Active S tart: September 01, 2024 End: September 01, 2024 Team Status: Inactive Member Role/Relationship Status Dates Dr. Amena Friedman MD Primary Care Provider Active Start: September 09, 2024 End: September 09, 2024 Dr. Amena Friedman MD Referring Provider Active Start: September 09, 2024 End: September 09, 2024 Dr. Indy Man DC Attending Provider Active S tart: September 09, 2024 End: September 09, 2024 Team Status: Inactive Member Role/Relationship Status Dates Dr. Amena Friedman MD Primary Care Provider Active Start: September 21, 2024 End: September 21, 2024 Dr. Amena Friedman MD Referring Provider Active Start: September 21, 2024 End: September 21, 2024 Dr. Indy Man DC Attending Provider Active S tart: September 21, 2024 End: September 21, 2024 Team Status: Inactive Member Role/Relationship Status Dates Dr. Amena Friedman MD Primary Care Provider Active Start: October 07, 2024 End: October 07, 2024 Dr. Amena Friedman MD Referring Provider Active Start: October 07, 2024 End: October 07, 2024 Dr. Indy Man DC Attending Provider Active S tart: October 07, 2024 End: October 07, 2024 Team Status: Inactive Member Role/Relationship Status Dates Dr. Amena Friedman MD Primary Care Provider Active Start: November 09, 2024 End: November 09, 2024 Dr. Amena Friedman MD Referring Provider Active Start: November 09, 2024 End: November 09, 2024 Dr. Indy Man DC Attending Provider Active S tart: November 09, 2024 End: November 09, 2024 Team Status: Inactive Member Role/Relationship Status Dates Dr. Amena Friedman MD Primary Care Provider Active Start: December 01, 2024 End: December 01, 2024 Dr. Amena Friedman MD Referring Provider Active Start: December 01, 2024 End: December 01, 2024 Dr. Indy Man DC Attending Provider Active S tart: December 01, 2024 End: December 01, 2024 Team Status: Inactive Member Role/Relationship Status Dates Dr. Amena Friedman MD Primary Care Provider Active Start: December 23, 2024 End: December 23, 2024 Dr. Amena Friedman MD Referring Provider Active Start: December 23, 2024 End: December 23, 2024 Dr. Indy Man DC Attending Provider Active S tart: December 23, 2024 End: December 23, 2024 Team Status: Active Member Role/Relationship Status Dates Dr. Amena Friedman MD Primary care physician Active Team Status: Inactive Member Role/Relationship Status Dates Dr. Amena Friedman MD Primary care physician Active Start: November 09, 2024 End: November 09, 2024 Dr. Amena Friedman MD Referring Provider Active Start: November 09, 2024 End: November 09, 2024 Dr. Indy Man DC Attending physician Active Start: November 09, 2024 End: November 09, 2024 Team Status: Inactive Member Role/Relationship Status Dates Dr. Amena Friedman MD Primary care physician Active Start: December 01, 2024 End: December 01, 2024 Dr. Amena Friedman MD Referring Provider Active Start: December 01, 2024 End: December 01, 2024 Dr. Indy Man DC Attending physician Active Start: December 01, 2024 End: December 01, 2024 Team Status: Inactive Member Role/Relationship Status Dates Dr. Amena Friedman MD Primary care physician Active Start: December 23, 2024 End: December 23, 2024 Dr. Amena Friedman MD Referring Provider Active Start: December 23, 2024 End: December 23, 2024 Dr. Indy Man DC Attending physician Active Start: December 23, 2024 End: December 23, 2024 Team Status: Inactive Member Role/Relationship Status Dates Dr. Amena Friedman MD Primary care physician Active Start: February 02, 2025 End: February 02, 2025 Dr. Jesus Hogan MD Attending physician Active Start: February 02, 2025 End: February 02, 2025 Dr. Jesus Hogan MD Referring Provider Active S tart: February 02, 2025 End: February 02, 2025 Team Status: Inactive Member Role/Relationship Status Dates Dr. Amena Friedman MD Primary care physician Active Start: February 09, 2025 End: February 09, 2025 Dr. Amena Friedman MD Referring Provider Active Start: February 09, 2025 End: February 09, 2025 Dr. Jesus Hogan MD Attending physician Active Start: February 09, 2025 End: February 09, 2025 FOR RECORDS PERTAINING TO PATIENTS WHO ARE OR HAVE BEEN ENROLLED IN A CHEMICAL DEPENDENCY/SUBSTANCEABUSE PROGRAM, SOME INFORMATION MAY BE OMITTED. This clinical summary was aggregated from multiple sources. Caution should be exercised in using it in the provision of clinical care. This summary normalizes information from multiple sources, and as a consequence, information in this document may materially change the coding, format and clinical context of patient data. In addition, data may be omitted in some cases. CLINICAL DECISIONS SHOULD BE BASED ON THE PRIMARY CLINICAL RECORDS. [facility]. provides no warranty or guarantee of the accuracy or completeness of information in this document.
== END | disposition home or self-care (01) ==
LOC: CT 18:07
PROVIDERS: PCP Internal Medicine; Referring Provider Nurse Practitioner Acute Care; Visit Provider Nurse Practitioner Acute Care
DX: F17.210 Nicotine dependence, cigarettes, uncomplicated (principal)
CPT/HCPCS: 71271

== ENCOUNTER 2025-03-22 17:55 | Emergency (ER) | payer OTHER, SELFPAY ==
[2025-03-22 17:56] VITALS: BP 149/82; PULSE 83; RESP 17; TEMP 36.7; O2SAT 98; BMI 34.3
--- NOTE | 2025-03-22 18:14 | EDS_ITS ---
HPI History of Present Illness Chief Complaint: Chest Other Detail of Chief Complaint: Right scapula and right anterior chest pain after blunt trauma. Informant: patient and spouse/S.O. Onset/Context/Timing Onset: Days (5 days ago) Mechanism/Context: Blunt Injury (Pinned between gate and a horse) Location of pain/injuries: Right shoulder and - (Anterior right chest ribs 4-7) Quality of Pain: Dull and Aching Location: Shoulder and anterior chest on the right Current Severity: Mild Maximum Severity: Severe Worsened by: Certain movement and palpation Relieved by: Nothing Associated Symptoms Associated Symptoms: Negative for Parasthesias, Weakness, Loss of function, Inability to ambulate, Loss of consciousness or Amnesia Length of loss of consciousness: None Narrative Narrative: Patient is a 64-year-old male. He has history of GERD. There is also history of spinal stenosis of lumbar region. Patient states horse lunged at him. Was a draft horse and pinned him against the gate. He has had pain that he localizes over the right scapula and anterior right ribs. He reports pain with movement of his right upper extremity and breathing. He denies shortness of breath. He denies change in the color of his urine. He denies flank pain. He denies head trauma. [place] loss of conscious. Denies visual, ocular auditory symptoms. He denies neck pain. He has taken Tylenol for his pain. Prior similar symptoms: No Recent Illness/Hospitalization: No [facility] Medical History H/O Malignant melanoma Pancreatitis sentinel node biopsy Home Medications ?Medication ?Instructions ?Recorded ?Last Taken ?Type spacer #1 ea 03/29/23 Unknown Rx albuterol 90 mcg-budesonide 80 2 inh inhalation TID NE N shortness 01/01/25 03/22/25 Rx mcg/actuation HFA aerosol inhaler of breath #10.7 gram s (Airsupra) lisinopril 20 mg tablet 20 mg PO DAILY hypertension 02/09/25 03/22/25 History hydrocodone-acetaminophen 5-325mg 1 tab PO Q6H PRN PRN Pain 3 days 03/22/25 Unknown Rx 5mg-325mg #10 TABLETS omeprazole 20 mg tablet,delayed 20 mg PO DAILY 5 03/22/25 History release Allergy/AdvReac Type Severity Reaction Status Date / Time No Known Allergies Allergy Verified 03/22/25 17:56 Family History Father Cancer BCC removed from shoulder Other Diabetes History of blood clots Myocardial infarction Skin cancer Surgical History History of melanoma excision Social History Smoking Status: Former smoker quit date: 08/21/19 pack-years: 40 Tobacco: How many years used: 40 alcohol intake: current alcohol intake frequency: a few times a month Alcohol type: hard liquor details: seldom substance use type: does not use caffeine: Yes Type: coffee ROS ROS ED Constitutional Constitutional ED: Denies chills, fever(s), subjective, sweats or weight loss Eyes Eyes: Denies blurry vision or change in vision Cardiovascular Cardiovascular: Reports chest pain; Denies palpitations or racing heartbeat Respiratory/Chest Respiratory/Chest: Denies cough, dyspnea or dyspnea on exertion Gastrointestinal Gastrointestinal: Denies abdominal pain, nausea or vomiting Genitourinary Genitourinary ED: Denies hematuria Musculoskeletal Musculoskeletal: Denies back pain or neck pain Integumentary Denies rash Neurologic Neurologic: Denies headache(s), paresthesias or weakness Hematologic/Lymphatic Hematologic/Lymphatic: Denies easy bleeding or easy bruising EXAM Physical Exam Const Vital Signs: 03/22/25 17:56 Temperature 98.1 F Temperature Source Temporal Pulse Rate 83 Respiratory Rate 17 Blood Pressure 149/82 H Blood Pressure Mean 104 Pulse Ox 98 Oxygen Delivery Method Room Air Positive well nourished and well developed Constitutional Narrative: Patient appears uncomfortable when he moves. He has no bruising noted. He is not on anticoagulant. General Appearance ED: well developed HEENT HEENT Narrative: Head is atraumatic and normocephalic. Ears normal. Nares patent. No septal deviation hematoma. No evidence of malocclusion. Eyes PERRL and EOMs intact bilaterally General Eye ED: Yes other Other Details: There is no subconjunctival hemorrhage. Neck full ROM General: Negative for tenderness Chest Wall inspection of chest normal and palpation of chest normal Chest Narrative: There is pain no patient midclavicular line ribs 4?7 on the right. There is also pain palpation over the scapula and specifically the spinous process of the right scapula. Resp normal respiratory effort and clear to auscultation bilaterally Cardio regular rhythm, S1 normal heart sound, S2 normal heart sound and no murmurs Cardio Narrative: There is no Vasquez's crunch. GI normal to inspection, nondistended, normoactive bowel sounds, non-tender, non- distended and no masses GI Narrative: There specifically is no pain ovation over the right or left costal margin. Auscultation: normoactive bowel sounds Palpation: soft Back/Spine normal to inspection and no thoracic nor lumbar tenderness Back/Spine Narrative: Pain ovation over the right scapula. Extremity normal to inspection; Negative for full ROM Extremity Narrative: Limited range of motion of right upper extremity due to pain in his chest and scapula. Axillary, median, radial and ulnar function intact. Radial pulses palpable. Neuro oriented x3, CN's II-XII intact bilaterally, moves all extremities, no focal motor deficits, no sensory deficits noted and gait normal [place] Coma Scale: document GCS findings Spontaneous Obeys Commands Oriented 15 Sensorium / Orientation: alert Psych mental status grossly normal and thought process normal Skin no rashes or lesions noted, no wounds, skin turgor normal and no jaundice MDM MDM MDM Narrative Medical decision making narrative: Patient was treated with [facility] for his pain. X-ray of the scapula was obtained as well as rib detail on the right with chest x-ray. Clinically he does not have a pneumothorax. Need to evaluate for contusion versus fracture of his ribs and scapula. Prior records were reviewed. Patient was seen March 17 by Janene Barrios for his asthma. He was seen by hematology Dr. Jesus Hogan for a hamartoma on February 09. On December 23 he was seen by chiropractor for his segmental and somatic lumbar dysfunction. Going back 10 years he has not been seen in the emergency department History & Record Review Additional record(s) reviewed:: Prior outpatient record and Prior labs Radiography Chest X-Ray - ED: 2 View (2 view x-ray of the right scapula reveals no fracture.) and Read by ED Physician (5 view right rib detail with chest x-ray reveals no pneumothorax, hemothorax, fractured ribs. There is both films were dependent reviewed interpreted by me at 1911.) Treatment and Re-Evaluation Narrative: Patient was informed of results. He was discharged to home with appropriate [facility] medicine. Discharge Plan Triage Chief Complaint: Chest Other ED Provider: Harrison Ortiz Dx/Rx/DC Orders Clinical Impression: Contusion of rib on right side, Contusion of scapula, right, History of gastroesophageal reflux (GERD), Essential hypertension, Hamartoma Instructions: ED Bruise, Rib Prescriptions: New hydrocodone-acetaminophen 5-325 mg tablet 1 tab PO Q6H PRN PRN (Reason: Pain) 3 Days Qty: 10 0RF No Action lisinopril 20 mg tablet 20 mg PO DAILY omeprazole 20 mg tablet,delayed release (DR/EC) 20 mg PO DAILY (DME) spacer See Rx Instructions .ROUTE .MEDSUPPLY Qty: 1 0RF Rx Instructions: As directed Airsupra 90-80 mcg/actuation HFA aerosol inhaler 2 inh inhalation TID PRN (Reason: shortness of breath) Qty: 10.7 11RF Rx Instructions: as a single dose; may repeat up to 6 doses per day (12 inhalations) Primary Care Provider: Amena Friedman Referrals: Amena Friedman MD [Primary Care Provider, Internal Medicine - [facility]] Activity Restrictions/Additional Instructions: 1. Apply ice to the right side your chest and shoulder blades 6-8 times a day for the next 3 to 5 days. 2. You may hurt for another 3 to 7 days. Print Language: Danish Disposition Disposition: Home, Self Care
--- NOTE | 2025-03-22 18:45 | RAD_ITS ---
PROCEDURE: RIGHT RIBS UNI MIN 3V W/PA CHEST 03/22/2025 REASON FOR EXAM: BLUNT TRAUMA TECHNIQUE: Procedure Code: RADRIB Modality: DX Procedure: RIBS UNI MIN 3V W/PA CHEST COMPARISON: Chest x-ray 02/02/2025. FINDINGS: Lungs/Pleura: Clear. No pneumothorax or sizable pleural effusion. Heart/Mediastinum: Within normal limits. Bones/Soft tissues: No acute fracture visualized. Mild degenerative changes of the spine. RAD/Ribs Uni Min 3V w/PA Chest IMPRESSION: No acute findings. Reading Location: [id number]
--- NOTE | 2025-03-22 18:45 | RAD_ITS ---
PROCEDURE: SCAPULA 03/22/2025 REASON FOR EXAM: BLUNT TRAUMA TECHNIQUE: Procedure Code: RADSC Modality: DX Procedure: SCAPULA Laterality: Right COMPARISON: None. FINDINGS: No acute fracture or dislocation appreciated. Preserved glenohumeral joint space. Mild degenerative arthrosis of the right AC joint. Clear right lung field. RAD/Scapula IMPRESSION: No acute fracture or dislocation. Reading Location: [id number]
[2025-03-22 19:00] VITALS: BP 103/66; PULSE 72; RESP 18; O2SAT 99
[2025-03-22] MEDS: HYDROcodone Bitartrate/Apap 5/325 Tablet PO (19:06)
[2025-03-22 19:20] VITALS: BP 103/66; PULSE 72; RESP 18; TEMP 36.7; O2SAT 99
--- OUTSIDE RECORDS SUMMARY | 2025-03-22 20:15 | XMS RPT_ITS | CCD ---
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 Jesus Hogan Attending Provider Care Physician, No Primary Primary Care Provider Unavailable Dr. Amena Friedman Attending Provider Dr. Amena Friedman Primary Care Provider Dr. Amena Freidman Referring Provider DAX Hanks Attending Provider DAX Mares Attending Provider Dr. Amena Friedman Other Provider Dr. Marbin Mike Attending Provider Care Physician, No Primary Referring Provider Un available Rj ACOSTA, DAVE-C Jigna Attending Provider Dr. Amena Friedman Primary Care Provider Dr. Amena Friedman Referring Provider Dr. Indy Man Attending Provider Dr. Jesus Hogan Attending Provider Dr. Lawson Navarro Attending Provider [phone] Dr. Amena Friedman MD Primary Care Provider Idalia CHARLES, Dr. Beckwith Referring Provider Dossi DC, Dr. Putnam Attending Provider [phone] Idalia CHARLES, Dr. Beckwith Primary Care Provider Idalia CHARLES, Dr. Beckwith Referring Provider Dossi DC, Dr. Putnam Attending Provider [phone] Idalia CHARLES, Dr. Beckwith Primary Care Provider Idalia CHARLES, Dr. Beckwith Referring Provider Dossi DC, Dr. Putnam Attending Provider [phone] Idalia CHARLES, Dr. Beckwith Primary Care Physician Idalia CHARLES, Dr. Beckwith Referring Provider Dossi DC, Dr. Putnam Attending Physician Samira CHARLES, Dr. Lee Attending Physician Samira CHARLES, Dr. Lee Referring Provider Idalia, Amena Primary Care Unavailable Idalia, Amena Referring Unavailable Dossi, Indy Attending Unavailable Idalia, Amena Referring Unavailable Idalia, Amena Primary Care Unavailable Dossi, Indy Attending Unavailable Idalia, Amena Referring Unavailable Idalia, Amena Primary Care Unavailable Dossi, Indy Attending Unavailable Idalia, Amena Primary Care Unavailable Rj TRAFFIC LINE PAINTER, Jigna Attending Unavailable Rj TRAFFIC LINE PAINTER, Jigna Referring Unavailable PrahJesus Referring Unavailable PrahJesus Attending Unavailable Idalia, Amena Primary Care Unavailable Idalia, Amena Primary Care Unavailable Idalia, Amena Referring Unavailable Dossi, Indy Attending Unavailable Idalia, Amena Referring Unavailable Idalia, Amena Primary Care Unavailable Dossi, Indy Attending Unavailable Idalia, Amena Referring Unavailable Idalia, Amena Primary Care Unavailable Dossi, Indy Attending Unavailable Idalia, Amena Referring Unavailable Dossi, Indy Attending Unavailable Idalia, Amena Primary Care Unavailable Idalia, Amena Referring Unavailable Dossi, Indy Attending Unavailable Idalia, Amena Primary Care Unavailable Idalia, Amena Primary Care Unavailable IdaliaAmena Referring Unavailable Joseph Riddle Attending Unavailable Idalia, Amena Primary Care Unavailable Idalia, Amena Referring Unavailable Jesus Hogan Attending Unavailable Idalia, Amena Primary Care Unavailable Idalia, Amena Referring Unavailable Indy Man Attending Unavailable Idalia, Amena Primary Care Unavailable Amena Friedman Referring Unavailable Indy Man Attending Unavailable Idalia, Amena Primary Care Unavailable Amena Friedman Referring Unavailable DosIndy marsh Attending Unavailable [facility], Amena Primary Care Unavailable Idalia, Amena Referring Unavailable DosIndy marsh Attending Unavailable Medications Current Medications Medication Drug Class(es) Dates Sig (Normalized) Sig (Original) acetaminophen 325 mg oral tablet (17 sources) Start: 07-19-2016 take 1 tablet by jeffrey th three times daily as needed TYLENOL 8 HOUR 650 MG CR-TABS One tablet by mouth three times daily as needed ACETAMINOPHEN [id number] Patt Tee LPN Albuterol-Budesonide (2 sources) Start: 01-01-2025 Start: 12-17-2023 End: 01-01-2025 Albuterol-Budesonide (Airsup ra) 90-80 mcg/actuation HFA aerosol inhaler Discontinued 2 NMA INHALATION THREE TIMES A DAY as needed for shortness of breath 10.7 December 16, 2023 11:00pm January 01, 2025 1:40pm Skin nodule Localized swelling, mass and lump, unspecified as a single dose; may repeat up to 6 doses per day (12 inhalations) Albuterol-Budesonide (Airsup ra) 90-80 mcg/actuation HFA aerosol inhaler (7 sources) Start: 12-17-2023 Albuterol-Alvada sonide (Airsupra) 90-80 mcg/actuation HFA aerosol inhaler Active 2 NMA INHALATION THREE TIMES A DAY as needed for shortness of breath 10.7 December 17, 2023 12:00am Skin nodule Localized swelling, mass and lump, unspecified as a single dose; may repeat up to 6 doses per day (12 inhalations) Start: 12-17-2023 Albuterol-Alvada sonide (Airsupra) 90-80 mcg/actuation HFA aerosol inhaler [...] mg for 4 days (days 2-5) PO Jlxhytvlcq-Jduecqwk-Edjgaqec ol (8 sources) Corticosteroid, beta2-Adrenergic Agonist Start: 03-29-2023 End: 08-27-2024 Gipctunslf-Upmzsarl-Qtsfmhfy ol (Breztri Aerosphere) 160-9-4.8 mcg/actuation HFA aerosol inhaler Discontinued 2 NMA INHALATION TWICE A DAY 10.7 6 March 29, 2023 12:00am December 17, 2023 1:57pm Start: 03-29-2023 End: 12-17-2023 Wpdiyihehe-Qdartgbv-Rrmtcvmz ol (Breztri Aerosphere) 160-9-4.8 mcg/actuation HFA aerosol inhaler Discontinued 2 NMA INHALATION TWICE A DAY 10.7 6 March 29, 2023 1:00am December 17, 2023 2:57pm Start: 03-29-2023 End: 12-17-2023 Pgrecduuld-Oldsepfc-Jpnzwfmb ol (Breztri Aerosphere) 160-9-4.8 mcg/actuation HFA aerosol [...] Active 1 INH INHALATION TWICE A DAY 2021 9:07am Start: 07-31-2021 End: 2021 Fluticasone [...] July 31, 2021 12:00am 2021 9:08am nystatin 150617 unt/ml oral suspension (8 sources) Polyene Antifungal Start: 03-29-2023 End: 08-19-2023 Nystatin 100,000 unit/mL suspension Discontinued 5 mL MUCOUS MEM THREE TIMES A DAY 250 March 29, 2023 12:00am August 19, 2023 [...] ; Translations: [Nicotine dependence, cigarettes, uncomplicated] Onset: 12-18-2023 Chronic Comment on above: Quit 2019 Past or Other Problems Problem Classification Problem Date Documented Date Episodic/Chronic Administrative/social admission (20 sources) Administrative reason for encounter; Translations: [Encounter for examination for driving license] Onset: 04-27-2024 03-21-2022 Episodic Unclassified (11 sources) sentinel node biopsy 11-09-2021 Results Test Name Value Interpretation Reference Range Facility Oncology Visit Reporton 10-2 Oncology Visit Report [facility] [place] [address] OFFICE VISIT Date of Service: 02/09/25 1559 MR#: [id number] Acct: [id number] Name: DANIELLE CHRISTY Rep #: [id number] : 1960 From: Jesus Hogan MD Age/Sex: 64/M [place] [facility] [place] Status: Signed HPI Subjective Date of Service 02/09/25 Chief Complaint F/u for Melanoma and L lung nodule. History of Present Illness 64y.o.man was diagnosed with Melanoma Right lower leg, had excision on 01/03/2011 then wide excision with right groin sentinel node dissection on 02/05/2011 for stage IIIA([id number]) disease. Lymph node dissection was done on [...] observation. Comes for follow up. Feels well. [facility] Medical History H/O Malignant melanoma Pancreatitis [...] all extr (more content not included)... Normal [facility] Absolute lymphocyte countOrd ered By: Jesus Hogan on 02-02-2025 Lymphocytes Auto (Unsp spec) [#/Vol] 2.12 10*3/uL 0.83-4.51 [facility] Absolute neutrophil countOrd ered By: Jesus Bartholomew on 02-02-2025 Neutrophils (Bld) [#/Vol] 2.3 10*3/uL 2.0-7.7 [facility] Anion gap in Serum or Plasma Ordered By: Jesus Hogan on 02-02-2025 Anion gap [Moles/Vol] 11 mmol/L 5-15 [facility] Automated lymphocyte count a s percentage of total leukocytesOrdered By: Jesus Hogan on 02-02-2025 Lymphocytes/100 WBC Auto (Unsp spec) 41.6 % High 19- [facility] BUN/creatinine ratioOrdered By: Jesus Hogan on 02-02-2025 Urea nitrogen/Creatinine [Mass ratio] 13.1 mg/mg 10- [facility] Basophil percentageOrdered B y: Jesus Hogan on 02-02-2025 Basophils/100 WBC (Bld) 0.6 % 0-1 [facility] Bilirubin, totalOrdered By: Jesus Hogan on 02-02-2025 Bilirubin [Mass/Vol] 0.65 mg/dL 0.00-1.30 [facility] CBC W/Diff, Automatedon 01-20 Absolute Lymph 2.12 X10 3/uL Normal 0.83-4.51 [facility] Comment on above: Performed By: #### L 500.4050, L100.0100, L504.2610 ####[facility] [address] [place], [address] Absolute Neut 2.3 X10 3/uL Normal 2.0-7.7 [facility] Comment on above: Performed By: #### L 500.4050, L100.0100, L504.2610 ####[facility] [address] [place], [address] Basophils/100 WBC (Bld) 0.6 % Normal 0-1 [facility] Comment on above: Performed By: #### L 500.4050, L100.0100, L504.2610 ####[facility] [address] [place], [address] Eosinophils/100 WBC (Bld) 2.4 % Normal 0-5 [facility] Comment on above: Performed By: #### L 500.4050, L100.0100, L504.2610 ####[facility] [address] [place], [address] Erythrocyte distribution width (RBC) [Ratio] 12.7 % Normal 11.6-14.6 [facility] Comment on above: Performed By: #### L 500.4050, L100.0100, L504.2610 ####[facility] [address] [place], [address] Hematocrit (Bld) [Volume fraction] 40.2 % Normal 40-54 [facility] Comment on above: Performed By: #### L 500.4050, L100.0100, L504.2610 ####[facility] [address] [place], [address] Hemoglobin (Bld) [Mass/Vol] 13.8 g/dL Normal 13.0-16.5 [facility] Comment on above: Performed By: #### L 500.4050, L100.0100, L504.2610 ####[facility] [address] [place], [address] IG% 0.600 Normal 0.0-0.9 [facility] Comment on above: Result Comment: IG% - Immature Granulocytes (promyelocytes, myelocytes and metamyelocytes) > 1% indicates that a LEFT SHIFT is Present. Performed By: #### L 500.4050, L100.0100, L504.2610 ####[facility] [address] [place], [address] Lymphocytes/100 WBC (Bld) 41.6 % High 19-41 [facility] Comment on above: Performed By: #### L 500.4050, L100.0100, L504.2610 ####[facility] [address] [place], [address] MCH (RBC) [Entitic mass] 30.7 pg Normal 27.0-32.0 [facility] Comment on above: Performed By: #### L 500.4050, L100.0100, L504.2610 ####[facility] [address] [place], [address] MCHC (RBC) [Mass/Vol] 34.3 g/dL Normal 32-36 [facility] Comment on above: Performed By: #### L 500.4050, L100.0100, L504.2610 ####[facility] [address] [place], [address] MCV (RBC) [Entitic vol] 89.5 fL Normal 80-94 [facility] Comment on above: Performed By: #### L 500.4050, L100.0100, L504.2610 ####[facility] [address] [place], [address] Monocytes/100 WBC (Bld) 10.8 % High 0-10 [facility] Comment on above: Performed By: #### L 500.4050, L100.0100, L504.2610 ####[facility] [address] [place], [address] Neutrophils/100 WBC (Bld) 44.0 % Low 47-70 [facility] Comment on above: Performed By: #### L 500.4050, L100.0100, L504.2610 ####[facility] [address] [place], [address] Nucleated RBC (Bld) [#/Vol] 0 10*3/uL Normal 0-5 [facility] Comment on above: Performed By: #### L 500.4050, L100.0100, L504.2610 ####[facility] [address] [place], [address] Platelet mean volume (Bld) [Entitic vol] 9.3 fL Normal 6.2-12.0 [facility] Comment on above: Performed By: #### L 500.4050, L100.0100, L504.2610 ####[facility] [address] [place], [address] Platelets (Bld) [#/Vol] 246 10*3/uL Normal 150-450 [facility] Comment on above: Performed By: #### L 500.4050, L100.0100, L504.2610 ####[facility] [address] [place], [address] RBC (Bld) [#/Vol] 4.49 10*6/uL Low 4.6-6.2 [facility] Comment on above: Performed By: #### L 500.4050, L100.0100, L504.2610 ####[facility] [address] [place], [address] RDW SD 41.6 fl Normal 35.1-43.9 [facility] Comment on above: Performed By: #### L 500.4050, L100.0100, L504.2610 ####[facility] [address] [place], [address] WBC (Bld) [#/Vol] 5.1 10*3/uL Normal 4.4-11.0 [facility] Comment on above: Performed By: #### L 500.4050, L100.0100, L504.2610 ####[facility] [address] [place], [address] Carbon dioxide, total [Moles /volume] in Central venous bloodOrdered By: Jesus Hogan on 02-02-2025 CO2 [Moles/Vol] 22.9 mmol/L 21.0-32.0 [facility] Chest PA and Lateralon 02-02 Chest PA and Lateral [facility] Imaging Services [address] [place] [address] Chest PA and Lateral MR#: [id number] Acct: [id number] Name: DANIELLE CHRISTY Rep #: [id number] : 1960 M 64 From: Bradly Quarles PCP: Dr. Amena Friedman MD Status: REG CLI Study: Chest PA and Lateral Date of Exam: 02/02/25 Exam# [id number] Ordering Dr: Jesus Hogan MD PROCEDURE: CHEST [...] may reflect a pulmonary nodule. Reading Location: [id number] CC: Dr. Jesus Hogan MD; Dr. Amena Friedman MD Sock Folder: Signed Normal [facility] Chloride assayOrdered By: Gill Hogan on 02-02-2025 Chloride [Moles/Vol] 100 mmol/L 98-108 [facility] Comprehensive Metabolic Prof ilon 02-02-2025 Albumin [Mass/Vol] 4.4 g/dL Normal 3.4-4.8 [facility] Comment on above: Performed By: #### L 500.4050, L100.0100, L504.2610 ####[facility] [address] [place], [address] Albumin/Globulin [Mass ratio] 1.8 {ratio} Normal 0.9-2.4 [facility] Comment on above: Performed By: #### L 500.4050, L100.0100, L504.2610 ####[facility] [address] [place], [address] ALK PHOS 62 U/L Normal 40-129 [facility] Comment on above: Performed By: #### L 500.4050, L100.0100, L504.2610 ####[facility] [address] [place], [address] ALT [Catalytic activity/Vol] 48 U/L High <=46 [facility] Comment on above: Performed By: #### L 500.4050, L100.0100, L504.2610 ####[facility] [address] [place], [address] AST [Catalytic activity/Vol] 31 U/L Normal <=37 [facility] Comment on above: Performed By: #### L 500.4050, L100.0100, L504.2610 ####[facility] [address] [place], [address] Bilirubin [Mass/Vol] 0.65 mg/dL Normal 0.00-1.30 [facility] Comment on above: Performed By: #### L 500.4050, L100.0100, L504.2610 ####[facility] [address] [place], [address] BUN/CRE 13.1 RATIO Normal 10-20 [facility] Comment on above: Performed By: #### L 500.4050, L100.0100, L504.2610 ####[facility] [address] [place], [address] Calcium [Mass/Vol] 9.1 mg/dL Normal 7.6-11.0 [facility] Comment on above: Performed By: #### L 500.4050, L100.0100, L504.2610 ####[facility] [address] [place], [address] Chloride [Moles/Vol] 100 mmol/L Normal 98-108 [facility] Comment on above: Performed By: #### L 500.4050, L100.0100, L504.2610 ####[facility] [address] [place], [address] CO2 [Moles/Vol] 22.9 mmol/L Normal 21.0-32.0 [facility] Comment on above: Performed By: #### L 500.4050, L100.0100, L504.2610 ####[facility] [address] [place], [address] Creatinine [Mass/Vol] 1.02 mg/dL Normal 0.70-1.20 [facility] Comment on above: Performed By: #### L 500.4050, L100.0100, L504.2610 ####[facility] [address] [place], [address] GAP 11 Normal 5-15 [facility] Comment on above: Performed By: #### L 500.4050, L100.0100, L504.2610 ####[facility] [address] [place], [address] GFR/1.73 sq M.predicted among non-blacks MDRD (S/P/Bld) [Vol rate/Area] 83 mL/min/{1.73_m2} Normal >60 [facility] Comment on above: Result Comment: mL/m in/1.73m2 CKD-EPI Creatinine Equation (2020) Performed By: #### L 500.4050, L100.0100, L504.2610 ####[facility] [address] [place], [address] Globulin (S) [Mass/Vol] 2.4 g/dL Normal 2.2-4.2 [facility] Comment on above: Performed By: #### L 500.4050, L100.0100, L504.2610 ####[facility] [address] [place], [address] Glucose [Mass/Vol] 92 mg/dL Normal 70-99 [facility] Comment on above: Performed By: #### L 500.4050, L100.0100, L504.2610 ####[facility] [address] [place], [address] Potassium [Moles/Vol] 4.0 mmol/L Normal 3.3-5.1 [facility] Comment on above: Performed By: #### L 500.4050, L100.0100, L504.2610 ####[facility] [address] [place], [address] Sodium [Moles/Vol] 134 mmol/L Normal 133-145 [facility] Comment on above: Performed By: #### L 500.4050, L100.0100, L504.2610 ####[facility] [address] [place], [address] T PROT 6.8 g/dL Normal 5.9-8.4 [facility] Comment on above: Performed By: #### L 500.4050, L100.0100, L504.2610 ####[facility] [address] [place], [address] Urea nitrogen [Mass/Vol] 13 mg/dL Normal 4-19 [facility] Comment on above: Performed By: #### L 500.4050, L100.0100, L504.2610 ####[facility] [address] [place], [address] Eosinophil percentageOrdered By: Jesus Hogan on 02-02-2025 Eosinophils/100 WBC (Bld) 2.4 % 0-5 [facility] Erythrocyte distribution wid th ratioOrdered By: Jesus Hogan on 02-02-2025 Erythrocyte distribution width (RBC) [Ratio] 12.7 % 11.6-14.6 [facility] Erythrocyte distribution wid th standard deviationOrdered By: Jesus Hogan on 02-02-2025 Erythrocyte distribution width (RBC) [Ratio] 41.6 fl 35.1-43.9 [facility] Glomerular filtration rate ( GFR) estimation/1.73 sq m using serum, plasma, or whole bOrdered By: Jesus Hogan on 02-02-2025 GFR/1.73 sq M.predicted among non-blacks MDRD (S/P/Bld) [Vol rate/Area] 83 mL/min/{1.73_m2} >60 [facility] Comment on above: mL/min/1.73m2 CKD-EP I Creatinine Equation (2020) Hematocrit Auto (Bld) [Volum e fraction]Ordered By: Jesus Hogan on 02-02-2025 Hematocrit (Bld) [Volume fraction] 40.2 % 40-54 [facility] Hemoglobin measurementOrdere d By: Jesus Hogan on 02-02-2025 Hemoglobin (Bld) [Mass/Vol] 13.8 g/dL 13.0-16.5 [facility] Immature granulocytes/100 WB C Auto (Bld)Ordered By: Jesus Hogan on 02-02-2025 Immature granulocytes/100 WBC (Bld) 0.600 % 0.0-0.9 [facility] Comment on above: IG% - Immature Granu locytes (promyelocytes, myelocytes and metamyelocytes) > 1% indicates that a LEFT SHIFT is Present. LDHon 02-02-2025 LDH 214 U/L Normal 87-241 [facility] Comment on above: Order Comment: 1 Performed By: #### L 500.4050, L100.0100, L504.2610 ####[facility] [address] [place], [address] Laboratory - Chemistry and C hemistry - challengeOrdered By: Jesus Hogan on 02-02-2025 AST [Catalytic activity/Vol] 31 U/L <38 [facility] Lactate dehydrogenase (LDH) measurementOrdered By: Jesus Hogan on 02-02-2025 LDH [Catalytic activity/Vol] 214 U/L 87-241 [facility] MCV (mean corpuscular volume ) determinationOrdered By: Jesus Hogan on 02-02-2025 MCV (RBC) [Entitic vol] 89.5 fL 80-94 [facility] Mean corpuscular hemoglobin (MCH) determinationOrdered By: Jesus Hogan on 02-02-2025 MCH (RBC) [Entitic mass] 30.7 pg 27.0-32.0 [facility] Mean corpuscular hemoglobin concentration (MCHC) determinationOrdered By: Jesus Hogan on 02-02-2025 MCHC (RBC) [Mass/Vol] 34.3 g/dL 32-36 [facility] Mean platelet volume determi nationOrdered By: Jesus Hogan on 02-02-2025 Platelet mean volume (Bld) [Entitic vol] 9.3 fL 6.2-12.0 [facility] Monocyte percentageOrdered B y: Jesus Hogan on 02-02-2025 Monocytes/100 WBC (Bld) 10.8 % High 0-10 [facility] Neutrophil percentageOrdered By: Jesus Hogan on 02-02-2025 Neutrophils/100 WBC (Bld) 44.0 % Low 47-70 [facility] Nucleated red blood cell per centageOrdered By: Jesus Hogan on 02-02-2025 Nucleated RBC/100 WBC (Bld) [Ratio] 0 % 0-5 [facility] Platelet countOrdered By: Gill Hogan on 02-02-2025 Platelets (Bld) [#/Vol] 246 10*3/uL 150-450 [facility] Potassium measurement (mass/ volume)Ordered By: Jesus Hogan on 02-02-2025 Potassium (Unsp spec) [Mass/Vol] 4.0 mmol/L 3.3-5.1 [facility] RBC Auto (Bld) [#/Vol]Ordere d By: Jesus Hogan on 02-02-2025 RBC (Bld) [#/Vol] 4.49 10*6/uL Low 4.6-6.2 [facility] Serum creatinine measurement (mass/volume)Ordered By: Jesus Hogan on 02-02-2025 Creatinine [Mass/Vol] 1.02 mg/dL 0.70-1.20 [facility] Serum globulin measurementOr dered By: Jesus Hogan on 02-02-2025 Globulin (S) [Mass/Vol] 2.4 g/dL 2.2-4.2 [facility] Serum glucose measurement (m ass/volume)Ordered By: Jesus Hogan on 02-02-2025 Glucose [Mass/Vol] 92 mg/dL 70-99 [facility] Serum or plasma alanine bergman otransferase (ALT) measurementOrdered By: Jesus Hogan on 02-02-2025 ALT [Catalytic activity/Vol] 48 U/L High <47 [facility] Serum or plasma albumin jessica urement (mass/volume)Ordered By: Jesus Hogan on 02-02-2025 Albumin [Mass/Vol] 4.4 g/dL 3.4-4.8 [facility] Serum or plasma albumin/glob ulin mass ratioOrdered By: Jesus Hogan on 02-02-2025 Albumin/Globulin [Mass ratio] 1.8 {ratio} 0.9-2.4 [facility] Serum or plasma alkaline missy sphatase measurementOrdered By: Jesus Hogan on 02-02-2025 ALP [Catalytic activity/Vol] 62 U/L 40-129 [facility] Serum or plasma calcium jessica urement (mass/volume)Ordered By: Jesus Samira on 02-02-2025 Calcium [Mass/Vol] 9.1 mg/dL 7.6-11.0 [facility] Serum or plasma urea nitroge n measurement (mass/volume)Ordered By: Jesus Samira on 02-02-2025 Urea nitrogen [Mass/Vol] 13 mg/dL 4-19 [facility] Sodium levelOrdered By: Bandar Hogan on 02-02-2025 Sodium [Moles/Vol] 134 mmol/L 133-145 [facility] Total proteinOrdered By: Devin Hogan on 02-02-2025 Protein [Mass/Vol] 6.8 g/dL 5.9-8.4 [facility] White blood cell (WBC) count Ordered By: Jesus Samira on 02-02-2025 WBC (Bld) [#/Vol] 5.1 10*3/uL 4.4-11.0 [facility] Chiropractic Reporton 2024 Chiropractic Report [facility] [address] [place] [address] OFFICE VISIT Date of Service: 12/23/24 MR#: [id number] Acct: [id number] Name: DANIELLE CHRISTY Rep #: [id number] : 1960 Provider: JONAH Coon Age/Sex: 64/M [place] [facility] [facility] [place] Status: Signed Intake Vital Signs 07/28/24 08:09 [...] back pain Visit Number: 12 Details: Danielle Jaelyn a 64 year old male here to [...] at times as well. 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 Normal [facility] Chiropractic Reporton 2024 Chiropractic Report [facility] [address] [place] [address] [id number] OFFICE VISIT Date of Service: 12/01/24 MR#: [id number] Acct: [id number] Name: DANIELLE CHRISTY Rep #: [id number] : 1960 Provider: JONAH Coon Age/Sex: 64/M [place] [facility] [place] Status: Signed Intake Vital Signs 07/28/24 08:09 [...] it is improving overall. 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 [facility] Reporton 2024 Chiropractic Report [facility] [place] [address] OFFICE VISIT Date of Service: 11/09/24 MR#: [id number] Acct: [id number] Name: DANIELLE CHRISTY Rep #: [id number] : 1960 Provider: JONAH Coon Age/Sex: 64/M [place] [facility] [place] [place]: Signed Intake Vital Signs 07/28/24 08:09 [...] it is improving overall. 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 [facility] Reporton 2024 Chiropractic Report [facility] [address] [place] [address] OFFICE VISIT Date of Service: 10/07/24 MR#: [id number] Acct: [id number] Name: DANIELLE CHRISTY Rep #: [id number] : 1960 Provider: JONAH Coon Age/Sex: 64/M [place] [facility] [place]: Signed Intake Vital Signs 07/28/24 08:09 Height 5 ft 7 in Intake Visit Reasons: BACK PAIN Chief Complaint: low back pain Allergies No Known Allergies Allergy (Verified 09/21/24 15:59) [facility] Medical History H/O Malignant melanoma Pancreatitis [...] and upper back tightness. 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 [facility] Reporton 2024 Chiropractic Report [facility] [place] [address] OFFICE VISIT Date of Service: 09/21/24 MR#: [id number] Acct: [id number] Name: DANIELLE CHRISTY Rep #: [id number] : 1960 Provider: JONAH Coon Age/Sex: 64/M [place] [facility] [place] Status: Signed Intake Vital Signs 07/28/24 08:09 [...] driving, standing and bending. 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 [facility] Reporton 2024 Chiropractic Report [facility] [address] [place] [address] OFFICE VISIT Date of Service: 09/09/24 MR#: [id number] Acct: [id number] Name: DANIELLE CHRISTY Rep #: [id number] : 1960 Provider: JONAH Coon Age/Sex: 64/M [place] [facility] [place] Status: Signed Intake Vital Signs 07/28/24 08:09 [...] driving, standing and bending. 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 (more content not included)... [facility] Reporton 2024 Chiropractic Report [facility] [place] [address] OFFICE VISIT Date of Service: 09/01/24 MR#: [id number] Acct: [id number] Name: DANIELLE CHRISTY Rep #: [id number] : 1960 Provider: JONAH Coon Age/Sex: 63/M [place] [facility] [place]: Signed Intake Vital Signs 07/28/24 08:09 [...] D3) 25 25 mcg PO DAILY 06/27/22 09/01/24 History mcg (1,000 unit) capsule omeprazole 40 [...] driving, standing and bending. 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 [facility] Reporton 2024 Chiropractic Report [facility] [address] [place], [place] [address] OFFICE VISIT Date of Service: 08/27/24 MR#: [id number] Acct: [id number] Name: DANIELLE CHRISTY Rep #: [id number] : 1960 Provider: JONAH Coon Age/Sex: 63/M [place] [facility] [place] Status: Signed Intake Vital Signs 07/28/24 08:09 [...] driving, standing and bending. 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 [facility] Reporton 2024 Chiropractic Report [facility] [address] [place] [address] OFFICE VISIT Date of Service: 08/19/24 MR#: [id number] Acct: [id number] Name: DANIELLE CHRISTY Rep #: [id number] : 1960 Provider: JONAH Coon Age/Sex: 63/M [place] [facility] [place]: Signed Intake Vital Signs 07/28/24 08:09 [...] driving, standing and bending. 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 [facility] Reporton 2024 Chiropractic Report [facility] [address] [place] [address] OFFICE VISIT Date of Service: 08/12/24 MR#: [id number] Acct: [id number] Name: DANIELLE CHRISTY Rep #: [id number] : 1960 Provider: JONAH Coon Age/Sex: 63/M [place] [facility] [place] Status: Signed Intake Vital Signs 07/28/24 08:09 [...] back pain Visit Number: 3 Details: Danielle Christy a 63 year old [...] driving, standing and bending. 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 [facility] Reporton 2024 Chiropractic Report [facility] [address] [place] [address] OFFICE VISIT Date of Service: 08/04/24 MR#: [id number] Acct: [id number] Name: DANIELLE CHRISTY Rep #: [id number] : 1960 Provider: JONAH Coon Age/Sex: 63/M [place] [facility] [place] Status: Signed Intake Vital Signs 07/28/24 08:09 [...] with standing and bending. 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 [...] Up: 1 x wk x 4 wks (2/4) Coding Level of Care Code No Charge Diagnoses Spinal stenosis at L4-L5 level M48.061 Segmental and somatic dysfunction of lumbar region M99.03 Segmental and somatic dysfunction of thoracic region M99.02 Segmental and somatic dysfunction of pelvic region M99.05 CPT Codes Procedures - Manipulation: 3-4 regions (45396) Procedures - Electronic Stimulation: Yes (53081) 08/04/24 1110 Date Indy Reid Signature: Date (if applicable) CC: [facility] Reporton 2024 Chiropractic Report [facility] [address] [place] [address] OFFICE VISIT Date of Service: 07/28/24 MR#: [id number] Acct: [id number] Name: DANIELLE CHRISTY Rep #: [id number] : 1960 Provider: JONAH Putnam Do ssi Age/Sex: 63/M [place] [facility] [place] Status: Signed Intake Vital Signs 02/10/24 15:21 [...] back pain Visit Number: 1 Details: Danielle Jaelyn a 63 year old male here for [...] his pain 3/10 today. 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 [facility] Visit Reporton 0 04-27-2024 Urgent Care Visit Report [facility] [address], [address] [place] [address] OFFICE VISIT Date of Service: 04/27/24 MR#: [id number] Acct: [id number] Name: DANIELLE CHRISTY Rep #: [id number] : 1960 Provider: DAX Cintron Age/Sex: 63/M [place] [facility] [place] Status: Signed Intake Vital Signs 02/10/24 15:21 [...] Chief Complaint: F/u for Melanoma. Details: DANIELLE ROJOJAELYN, is a 63 M who presents to [...] Reid Signature: Date (if applicable) CC: [facility] Absolute lymphocyte countOrd ered By: Jesus Hogan on 10-24-2022 Lymphocytes Auto (Unsp spec) [#/Vol] 1.39 10*3/uL 0.83-4.51 [facility] Basophil percentageOrdered B y: Jesus Hogan on 10-24-2022 Basophils/100 WBC (Bld) 0.6 % 0-1 [facility] Bilirubin [Mass/Vol] 0.50 mg/dL 0.20-1.00 [facility] Comment on above: For patients on eltr ombopag therapy, use of Dimension [place] TBIL is not recommended. Chloride [Moles/Vol] 105 mmol/L 98-107 [facility] Eosinophils/100 WBC (Bld) 1.0 % 0-5 [facility] Glucose [Mass/Vol] 102 mg/dL 74-106 [facility] Comment on above: Fasting Glucose resu lt from 100 to 125 mg/dL suggests IMPAIRED HOMEOSTASIS per A.D.A. criteria. LDH [Catalytic activity/Vol] 242 U/L 87-241 [facility] Neutrophils (Bld) [#/Vol] 2.7 10*3/uL 2.0-7.7 [facility] Neutrophils/100 WBC (Bld) 56.6 % 47-70 [facility] Potassium [Moles/Vol] 4.4 mmol/L 3.5-5.1 [facility] Protein [Mass/Vol] 7.1 g/dL 6.4-8.2 [facility] Sodium [Moles/Vol] 136 mmol/L 136-145 [facility] WBC (Bld) [#/Vol] 4.8 10*3/uL 4.4-11.0 [facility] Blood erythrocytes count (nu mber/volume)Ordered By: Jesus Hogan on 10-24-2022 RBC (Bld) [#/Vol] 4.44 10*6/uL 4.6-6.2 [facility] Blood hemoglobin measurement (mass/volume)Ordered By: Jesus Hogan on 10-24-2022 Hemoglobin (Bld) [Mass/Vol] 13.5 g/dL 13.0-16.5 [facility] Blood lymphocytes/100 leukoc ytesOrdered By: Jesus Hogan on 10-24-2022 Lymphocytes/100 WBC (Bld) 28.8 % 19-41 [facility] Blood monocytes/100 leukocyt esOrdered By: Jesus Hogan on 10-24-2022 Monocytes/100 WBC (Bld) 12.2 % 0-10 [facility] Blood platelet mean volumeOr dered By: Jesus Hogan on 10-24-2022 Platelet mean volume (Bld) [Entitic vol] 9.1 fL 6.2-12.0 [facility] Determination of erythrocyte mean corpuscular volume (MCV)Ordered By: Jesus Hogan on 10-24-2022 MCV (RBC) [Entitic vol] 93.2 fL 80-94 [facility] Hematocrit Auto (Bld) [Volum e fraction]Ordered By: Jesus Hogan on 10-24-2022 Hematocrit (Bld) [Volume fraction] 41.4 % 40-54 [facility] - Chemistry and C hemistry - challengeOrdered By: Jesus Hogan on 10-24-2022 ALP [Catalytic activity/Vol] 77 U/L 45-117 [facility] ALT [Catalytic activity/Vol] 68 U/L 16-61 [facility] CO2 [Moles/Vol] 25.0 mmol/L 21.0-32.0 [facility] Globulin (S) [Mass/Vol] 3.6 g/dL 2.2-4.2 [facility] Urea nitrogen/Creatinine [Mass ratio] 14.7 mg/mg 10-20 [facility] - Hematology and Cell countsOrdered By: Jesus Hogan on 10-24-2022 Erythrocyte distribution width (RBC) [Entitic vol] 41.8 fL 35.1-43.9 [facility] Erythrocyte distribution width (RBC) [Ratio] 12.1 % 11.6-14.6 [facility] Immature granulocytes/100 WBC (Bld) 0.800 % 0.0-0.9 [facility] Comment on above: IG% - Immature Granu locytes (promyelocytes, myelocytes and metamyelocytes) > 1% indicates that a LEFT SHIFT is Present. MCH (RBC) [Entitic mass] 30.4 pg 27.0-32.0 [facility] Nucleated RBC/100 WBC (Bld) [Ratio] 0 % 0-5 [facility] Auto (RBC) [Mass/Vol]Or dered By: Jesus Hogan on 10-24-2022 MCHC (RBC) [Mass/Vol] 32.6 g/dL 32-36 [facility] No Panel InformationOrdered By: Jesus Hogan on 10-24-2022 Estimated Creatinine Clearance Calc 54.00 ml/min [facility] Estimated GFR (MDRD) Amer 69 mL/min >60 [facility] Comment on above: GFR Calc Estimated GFR (MDRD) Non-Af Amer 57 mL/min >60 [facility] Comment on above: Non- GFR Calc Platelets bldOrdered By: Devin Hogan on 10-24-2022 Platelets (Bld) [#/Vol] 200 10*3/uL 150-450 [facility] Serum or plasma albumin jessica urement (mass/volume)Ordered By: Jesus Hogan on 10-24-2022 Albumin [Mass/Vol] 3.5 g/dL 3.2-5.0 [facility] Serum or plasma albumin/glob ulin mass ratioOrdered By: Jesus Hogan on 10-24-2022 Albumin/Globulin [Mass ratio] 1.0 {ratio} 0.9-2.4 [facility] Serum or plasma calcium jessica urement (mass/volume)Ordered By: Jesus Hogan on 10-24-2022 Calcium [Mass/Vol] 8.8 mg/dL 8.5-10.1 [facility] Serum or plasma creatinine m easurement (mass/volume)Ordered By: Jesus Hogan on 10-24-2022 Creatinine [Mass/Vol] 1.36 mg/dL 0.70-1.30 [facility] Comment on above: The validity of the calculated GFR & GFRAA in patients over 70 years has not been determined. Clinical correlation is essential. Serum or plasma urea nitroge n measurement (mass/volume)Ordered By: Jesus Hgoan on 10-24-2022 Urea nitrogen [Mass/Vol] 20 mg/dL 7-18 [facility] Thin prep Papanicolaou smear with manual screeningOrdered By: Jesus Hogan on 10-24-2022 Thin prep Papanicolaou smear with manual screening 40 U/L 15-37 [facility] Thin prep Papanicolaou smear with manual screening 6 5-15 [facility] Basophil percentageOrdered B y: Dr. Friedman on 06-26-2022 Cholesterol [Mass/Vol] 248 mg/dL <200 [facility] Comment on above: <200 mg/dL Desirable 200-240 mg/dL Borderline >240 mg/dL High Risk Triglyceride [Mass/Vol] 88 mg/dL <199 [facility] Comment on above: The drugs N-Acetylcy steine and Metamizole may falsely depress this assay.Serum Triglycerides Reference Interval Normal <150 mg/dL Borderline high 150 - 199 mg/dL High 200 - 499 mg/dL Very High > or = 500 mg/dL No Panel InformationOrdered By: Dr. Friedman on 06-26-2022 Prostate Specific Antigen Screen 0.50 ng/mL 0.00-4.00 [facility] Comment on above: This test was perfor med using the TPSA assay method for the[employer] chemistry system. Values obtained with differentassay methods cannot be used interchangably.When changing PSA assays in the course of monitoring apatient, additional sequential testing should be carriedout to confirm baseline values. Thyroid Stimulating Hormone (TSH) 2.77 uIU/mL 0.358-3.74 [facility] Vitamin D 25-Hydroxy 19.3 ng/mL [facility] Comment on above: Vitamin D 25(OH) Sta tus Range Deficiency <20 ng/mL (50nmol/L) Insufficiency 20 - 30 ng/mL (50 - 75 nmol/L) Sufficiency 30 - 100 ng/mL (75 - 250 nmol/L) Toxicity >100 ng/mL (>250 nmol/L) Serum or plasma cholesterol in HDL measurement (mass/volume)Ordered By: Dr. Friedman on 06-26-2022 Cholesterol in HDL [Mass/Vol] 48 mg/dL >40 [facility] Comment on above: The drugs N-Acetylcy steine and Metamizole may falsely depress this assay. Reference Range HDL <40 mg/dL Low HDL Cholesterol HDL >or= 60 mg/dL High HDL Cholesterol Serum or plasma cholesterol in VLDL measurement (mass/volume)Ordered By: Dr. Friedman on 06-26-2022 Cholesterol in VLDL [Mass/Vol] 18 mg/dL 5-40 [facility] Serum or plasma low density lipoprotein (LDL) cholesterol measurement (mass/volume)Ordered By: Dr. Friedman on 06-26-2022 Cholesterol in LDL [Mass/Vol] 182 mg/dL 0-130 [facility] - Microbiology an d Antimicrobial susceptibilityon 04-01-2022 SARS-CoV-2 (COVID-19) RNA JAYCEE+probe Ql (Unsp spec) Not detected [facility] No Panel Informationon 04-01 POC Nasal Swab Influenza A,B Detected [facility] POC Nasal Swab RSV Not detected [facility] Absolute lymphocyte counton 12-26-2021 Lymphocytes Auto (Unsp spec) [#/Vol] 2.04 10*3/uL 0.83-4.51 [facility] Work Phone: Basophil percentageon 2021 Basophils/100 WBC (Bld) 0.5 % 0-1 [facility] Work Phone: Bilirubin [Mass/Vol] 0.50 mg/dL 0.20-1.00 [facility] Work Phone: Comment on above: For patients on eltr ombopag therapy, use of Dimension [place] TBIL is not recommended. Chloride [Moles/Vol] 106 mmol/L 98-107 [facility] Work Phone: Eosinophils/100 WBC (Bld) 3.1 % 0-5 [facility] Work Phone: Glucose [Mass/Vol] 106 mg/dL 74-106 [facility] Work Phone: Comment on above: Fasting Glucose resu lt from 100 to 125 mg/dL suggests IMPAIRED HOMEOSTASIS per A.D.A. criteria. Neutrophils (Bld) [#/Vol] 3.4 10*3/uL 2.0-7.7 [facility] Work Phone: Neutrophils/100 WBC (Bld) 53.1 % 47-70 [facility] Work Phone: Potassium [Moles/Vol] 3.9 mmol/L 3.5-5.1 [facility] Work Phone: Protein [Mass/Vol] 7.4 g/dL 6.4-8.2 [facility] Work Phone: Sodium [Moles/Vol] 139 mmol/L 136-145 [facility] Work Phone: WBC (Bld) [#/Vol] 6.5 10*3/uL 4.4-11.0 [facility] Work Phone: Blood erythrocytes count (nu mber/volume)on 12-26-2021 RBC (Bld) [#/Vol] 4.29 10*6/uL 4.6-6.2 [facility] Work Phone: Blood hemoglobin measurement (mass/volume)on 12-26-2021 Hemoglobin (Bld) [Mass/Vol] 13.5 g/dL 13.0-16.5 [facility] Work Phone: Blood lymphocytes/100 leukoc yteson 12-26-2021 Lymphocytes/100 WBC (Bld) 31.6 % 19-41 [facility] Work Phone: Blood monocytes/100 leukocyt eson 12-26-2021 Monocytes/100 WBC (Bld) 11.5 % 0-10 [facility] Work Phone: Blood platelet mean volumeon 12-26-2021 Platelet mean volume (Bld) [Entitic vol] 9.2 fL 6.2-12.0 [facility] Work Phone: Determination of erythrocyte mean corpuscular volume (MCV)on 12-26-2021 MCV (RBC) [Entitic vol] 93.0 fL 80-94 [facility] Work Phone: Hematocrit Auto (Bld) [Volum e fraction]on 12-26-2021 Hematocrit (Bld) [Volume fraction] 39.9 % 40-54 [facility] Work Phone: Laboratory - Chemistry and C hemistry - challengeon 12-26-2021 ALP [Catalytic activity/Vol] 79 U/L 45-117 [facility] Work Phone: ALT [Catalytic activity/Vol] 73 U/L 16-61 [facility] Work Phone: CO2 [Moles/Vol] 26.0 mmol/L 21.0-32.0 [facility] Work Phone: Globulin (S) [Mass/Vol] 3.7 g/dL 2.2-4.2 [facility] Work Phone: Urea nitrogen/Creatinine [Mass ratio] 18.3 mg/mg 10-20 [facility] Work Phone: Laboratory - Hematology and Cell countson 12-26-2021 Erythrocyte distribution width (RBC) [Entitic vol] 42.8 fL 35.1-43.9 [facility] Work Phone: Erythrocyte distribution width (RBC) [Ratio] 12.5 % 11.6-14.6 [facility] Work Phone: Immature granulocytes/100 WBC (Bld) 0.200 % 0.0-0.9 [facility] Work Phone: Comment on above: IG% - Immature Granu locytes (promyelocytes, myelocytes and metamyelocytes) > 1% indicates that a LEFT SHIFT is Present. MCH (RBC) [Entitic mass] 31.5 pg 27.0-32.0 [facility] Work Phone: Nucleated RBC/100 WBC (Bld) [Ratio] 0 % 0-5 [facility] Work Phone: MCHC Auto (RBC) [Mass/Vol]on 12-26-2021 MCHC (RBC) [Mass/Vol] 33.8 g/dL 32-36 [facility] Work Phone: No Panel Informationon 12-26 Estimated Creatinine Clearance Calc 61.97 ml/min [facility] Work Phone: Estimated GFR (MDRD) Amer 80 mL/min >60 [facility] Work Phone: Comment on above: GFR Calc Estimated GFR (MDRD) Non-Af Amer 66 mL/min >60 [facility] Work Phone: Comment on above: Non- GFR Calc Platelets bldon 12-26-2021 Platelets (Bld) [#/Vol] 195 10*3/uL 150-450 [facility] Work Phone: Serum or plasma albumin jessica urement (mass/volume)on 12-26-2021 Albumin [Mass/Vol] 3.7 g/dL 3.2-5.0 [facility] Work Phone: Serum or plasma albumin/glob ulin mass ratioon 12-26-2021 Albumin/Globulin [Mass ratio] 1.0 {ratio} 0.9-2.4 [facility] Work Phone: Serum or plasma calcium jessica urement (mass/volume)on 12-26-2021 Calcium [Mass/Vol] 8.8 mg/dL 8.5-10.1 [facility] Work Phone: Serum or plasma creatinine m easurement (mass/volume)on 12-26-2021 Creatinine [Mass/Vol] 1.20 mg/dL 0.70-1.30 [facility] Work Phone: Comment on above: The validity of the calculated GFR & GFRAA in patients over 70 years has not been determined. Clinical correlation is essential. Serum or plasma urea nitroge n measurement (mass/volume)on 12-26-2021 Urea nitrogen [Mass/Vol] 22 mg/dL 7-18 [facility] Work Phone: Thin prep Papanicolaou smear with manual screeningon 12-26-2021 Thin prep Papanicolaou smear with manual screening 38 U/L 15-37 [facility] Work Phone: Thin prep Papanicolaou smear with manual screening 7 5-15 [facility] Work Phone: Thin prep Papanicolaou smear with manual screening 204 U/L 87-241 [facility] Work Phone: CNPAry 09-16-2020 CNPN Telephone ([facility]) -------- ADNIELLE CHRISTY ([id number]) 1960 M Date Time Provider Department 09/16/20 SELWYN MYLES During your visit today, we recorded the following information about you: Selwyn Myles APRN.CNP, DNP 09/16/2020 10:23 AM Signed Team - PET Scan completed at [facility] - patient has not been seen by Dr. Navarro in over 4 years. Contact patient to find out who is managing the patients care. CT was completed for a Malignant melanoma diagnosis. Selwyn Myles APRN.CNP, DNP [facility] 09/16/2020 10:50 AM Signed Left message for patient to return call to office [facility] Evelyne Benson RN 09/16/2020 11:53 AM [...] already spoke with Dr. Hogan about results. HARDY Arita APRN.CNP, DNP 09/19/2020 10:22 PM Signed Noted. Selwyn Myles APRN.CNP, DNP Allergies As of Date: 09/16/2020 (No Known Allergies) Date Reviewed: 05/11/2016 Reviewed by: Sowmya Bower [facility] - Fully Assessed Reason for Visit: Results [...] by WORKMAN CHUYITA BRADEN on 09/20/20 Normal [facility] Erythrocyte distribution wid th standard deviationon 08-25-2018 Erythrocyte distribution width (RBC) [Entitic vol] 43.3 fL 35.1-43.9 [facility] - Hematology and Cell countson 08-25-2018 Erythrocyte distribution width (RBC) [Ratio] 12.7 % 11.6-14.6 [facility] Total cell counton 9 Cells counted Molgen (Bld/Tiss) [#] Not Reportable [facility] Office Visit: Spine Visit- R sided low back painon 03-21-2017 Documentation of current medications (procedure) Done Invalid Interpretation Code [facility] Work Phone: Office Visit: Spine Visit- R sided low back painon 03-12-2017 Documentation of current medications (procedure) Done Invalid Interpretation Code [facility] Work Phone: Office Visit: Spine Visit- N EWon 03-07-2017 Dietary management education, guidance, and counseling (procedure) yes Invalid Interpretation Code [facility] Work Phone: Documentation of current medications (procedure) Done Invalid Interpretation Code [facility] Work Phone: Tobacco smoking status NHIS Never Invalid Interpretation Code [facility] Work Phone: Tobacco smoking status NHIS Tobacco smoking status NHIS Invalid Interpretation Code [facility] Work Phone: Tobacco use [facility] Former smoker Invalid Interpretation Code [facility] Work Phone: Lab Report: CBC W/Diff, Auto - EPLAB Onlyon 08-18-2015 Absolute Neut 4.0 X10 3/UL Invalid Interpretation Code 2.0-7.7 [facility] Work Phone: Basophils/100 WBC Auto (Bld) 0.8 % Invalid Interpretation Code 0-1 [facility] Work Phone: Eosinophils/100 leukocytes 2.1 % Invalid Interpretation Code 0-5 [facility] Work Phone: Erythrocyte distribution width Auto Ratio (RBC) 12.3 % Invalid Interpretation Code 11.6-14.6 [facility] Work Phone: Erythrocytes (RBC) 4.67 10*6/uL Invalid Interpretation Code 4.6-6.2 [facility] Work Phone: Hematocrit (HCT) 43.4 % Invalid Interpretation Code 40-54 [facility] Work Phone: Hemoglobin mass conc (Bld) 14.8 g/dL Invalid Interpretation Code 13.0-16.5 [facility] Work Phone: Lymphocytes 1.99 X10 3/UL Invalid Interpretation Code 0.83-4.51 [facility] Work Phone: Lymphocytes/100 leukocytes 29.5 % Invalid Interpretation Code 19-41 [facility] Work Phone: MCH 31.7 pg Invalid Interpretation Code 27.0-32.0 [facility] Work Phone: MCHC mass conc (RBC) 34.0 g/dL Invalid Interpretation Code 32-36 [facility] Work Phone: MCV 93.1 fL Invalid Interpretation Code 80-94 [facility] Work Phone: Monocytes/100 leukocytes 7.9 % Invalid Interpretation Code 0-10 [facility] Work Phone: Neutrophils/100 WBC Auto (Bld) 59.7 % Invalid Interpretation Code 47-70 [facility] Work Phone: Platelets 222 10*3/mm3 Invalid Interpretation Code 150-450 [facility] Work Phone: PMV by Selina 6.4 fL Invalid Interpretation Code 6.2-12.0 [facility] Work Phone: WBC (Leukocytes) 6.7 10*3/uL Invalid Interpretation Code 4.4-11.0 [facility] Work Phone: Lab Report: [facility] 08-18-2015 Alanine aminotransferase (ALT) 24 U/L Invalid Interpretation Code 12-78 [facility] Work Phone: Albumin 3.8 g/dL Invalid Interpretation Code 3.4-5.0 [facility] Work Phone: Albumin/Globulin Ratio 1.1 {ratio} Invalid Interpretation Code 0.9-2.4 [facility] Work Phone: Alkaline phosphatase (ALP) 83 U/L Invalid Interpretation Code 50-136 [facility] Work Phone: Anion gap 7 mmol/L Invalid Interpretation Code 5-15 [facility] Work Phone: Aspartate aminotransferase (AST) 18 U/L Invalid Interpretation Code 15-37 [facility] Work Phone: Bilirubin (total) 0.30 mg/dL Invalid Interpretation Code 0.20-1.00 [facility] Work Phone: BUN/Creatinine Ratio 16.2 RATIO Invalid Interpretation Code 10-20 [facility] Work Phone: Calcium 8.7 mg/dL Invalid Interpretation Code 8.5-10.1 [facility] Work Phone: Chloride 106 mmol/L Invalid Interpretation Code 98-107 [facility] Work Phone: CO2 28.0 mmol/L Invalid Interpretation Code 21.0-32.0 [facility] [place] Work Phone: Creatinine 1.17 mg/dL Invalid Interpretation Code 0.70-1.30 [facility] [place] Work Phone: eGFR (non-black) 84 mL/min/{1.73_m2} Invalid Interpretation Code >60 [facility] Work Phone: eGFR (non-black) 69 mL/min/{1.73_m2} Invalid Interpretation Code >60 [facility] [place] Work Phone: Globulin 3.4 g/dL Invalid Interpretation Code 2.3-3.5 [facility] [place] Work Phone: Glucose mass conc 100 mg/dL Invalid Interpretation Code 70-110 [facility] [place] Work Phone: Potassium molar conc 4.6 mmol/L Invalid Interpretation Code 3.5-5.1 [facility] [place] Work Phone: Protein 7.2 g/dL Invalid Interpretation Code 6.4-8.2 [facility] Work Phone: Sodium 141 mmol/L Invalid Interpretation Code 136-145 [facility] Work Phone: Urea nitrogen 19 mg/dL High 7-18 [facility] [place] Work Phone: Lab Report: [facility] 08-18-2015 LDH 187 U/L Invalid Interpretation Code 87-241 [facility] [place] Work Phone: Lab Report: Magnesiumon 07-22 Magnesium 2.2 mg/dL Invalid Interpretation Code 1.8-2.4 [facility] Work Phone: Lab Report: Uric Acidon 07-22 Urate 4.6 mg/dL Invalid Interpretation Code 3.5-7.2 [facility] Work Phone: Office Visiton 08-18-2015 Documentation of current medications (procedure) Done Invalid Interpretation Code [facility] Work Phone: Lab Report: CBC W/Diff, Auto matedon 02-03-2015 Immature granulocytes/100 WBC (Bld) 0.100 % Invalid Interpretation Code 0.0-0.9 [facility] Work Phone: RDW SD 44.6 fL High 35.1-43.9 [facility] Work Phone: Lab Report: Thyroid Stim Hor chelsea (TSH)on 02-03-2015 Thyroid stimulating hormone (TSH) 2.28 u[iU]/mL Invalid Interpretation Code 0.358-3.74 [facility] Work Phone: Lab Report: CBC W/Diff, Auto - EPLAB Onlyon 06-24-2014 Absolute Neut 3.0 X10 3/UL Invalid Interpretation Code 2.0-7.7 [facility] [place] Work Phone: Lab Report: LDHon 06-24-2014 Lactate dehydrogenase (LDH) 181 U/L Invalid Interpretation Code 84-246 [facility] Work Phone: Lab Report: LIVERon 01-06-20 14 ALK 87 U/L Normal 45-117 [facility] Work Phone: Bilirubin (direct) 0.08 mg/dL Normal 0.00-0.30 [facility] Work Phone: Clinical Lists 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 Amena Friedman MD Work Phone: [facility] 02-09-2025 16:01-0400 Body mass index (BMI) [Ratio] 32.5 kg/m2 Dr. Amena Friedman MD Work Phone: [facility] 02-09-2025 16:01-0400 Body temperature 98.4 [degF] Dr. Amena Friedman MD Work Phone: [facility] 02-09-2025 16:01-0400 Body weight 94.[address] Amena Friedman MD Work Phone: [facility] 02-09-2025 16:01-0400 Diastolic blood pressure 65 mm[Hg] Dr. Amena Friedman MD Work Phone: [facility] 02-09-2025 16:01-0400 Heart rate 61 /min Dr. Amena Friedman MD Work Phone: [facility] 02-09-2025 16:01-0400 Respiratory rate 18 /min Dr. Amena Friedman MD Work Phone: [facility] 02-09-2025 16:01-0400 SaO2% (BldA) [Mass fraction] 99 % Dr. Amena Friedman MD Work Phone: [facility] 02-09-2025 16:01-0400 Systolic blood pressure 103 mm[Hg] Dr. Amena Friedman MD Work Phone: [facility] 07-28-2024 08:09-0400 Body height 170.[address] Amena Friedman MD Work Phone: [facility] 07-28-2024 08:09-0400 Body mass index (BMI) [Ratio] 34.4 kg/m2 Dr. Amena Friedman MD Work Phone: [facility] 07-28-2024 08:09-0400 Body weight 99.[address] Amena Friedman MD Work Phone: [facility] 07-28-2024 08:09-0400 Diastolic blood pressure 78 mm[Hg] Dr. Amena Friedman MD Work Phone: [facility] 07-28-2024 08:09-0400 Systolic blood pressure 138 mm[Hg] Dr. Amena Friedman MD Work Phone: [facility] 10-24-2022 10:27-0400 Body height 170.18 cm No Primary Care Physician [facility] 10-24-2022 10:27-0400 Body mass index (BMI) [Ratio] 34.7 kg/m2 No Primary Care Physician [facility] 10-24-2022 10:27-0400 Body temperature 98.3 [degF] No Primary Care Physician [facility] 10-24-2022 10:27-0400 Body weight 100.75 kg No Primary Care Physician [facility] 10-24-2022 10:27-0400 Diastolic blood pressure 73 mm[Hg] No Primary Care Physician [facility] 10-24-2022 10:27-0400 Heart rate 65 /min No Primary Care Physician [facility] 10-24-2022 10:27-0400 Respiratory rate 16 /min No Primary Care Physician [facility] 10-24-2022 10:27-0400 SaO2% (BldA) [Mass fraction] 96 % No Primary Care Physician [facility] 10-24-2022 10:27-0400 Systolic blood pressure 112 mm[Hg] No Primary Care Physician [facility] 10-09-2022 08:30-0400 Body mass index (BMI) [Ratio] 34 kg/m2 No Primary Care Physician [facility] 10-09-2022 08:30-0400 Body weight 98.42 kg No Primary Care Physician [facility] 10-09-2022 08:30-0400 Diastolic blood pressure 82 mm[Hg] No Primary Care Physician [facility] 10-09-2022 08:30-0400 Systolic blood pressure 128 mm[Hg] No Primary Care Physician [facility] 09-05-2022 07:30-0400 Body mass index (BMI) [Ratio] 33.6 kg/m2 No Primary Care Physician [facility] 09-05-2022 07:30-0400 Body temperature 97.6 [degF] No Primary Care Physician [facility] 09-05-2022 07:30-0400 Body weight 97.52 kg No Primary Care Physician [facility] 09-05-2022 07:30-0400 Diastolic blood pressure 75 mm[Hg] No Primary Care Physician [facility] 09-05-2022 07:30-0400 Heart rate 60 /min No Primary Care Physician [facility] 09-05-2022 07:30-0400 Respiratory rate 18 /min No Primary Care Physician [facility] 09-05-2022 07:30-0400 SaO2% (BldA) [Mass fraction] 98 % No Primary Care Physician [facility] 09-05-2022 07:30-0400 Systolic blood pressure 120 mm[Hg] No Primary Care Physician [facility] 04-01-2022 09:22-0500 Body height 170.18 cm No Primary Care Physician [facility] 04-01-2022 09:22-0500 Body mass index (BMI) [Ratio] 33 kg/m2 No Primary Care Physician [facility] 04-01-2022 09:22-0500 Body temperature 98.4 [degF] No Primary Care Physician [facility] 04-01-2022 09:22-0500 Body weight 95.7 kg No Primary Care Physician [facility] 04-01-2022 09:22-0500 Diastolic blood pressure 60 mm[Hg] No Primary Care Physician [facility] 04-01-2022 09:22-0500 Heart rate 61 /min No Primary Care Physician [facility] 04-01-2022 09:22-0500 Respiratory rate 18 /min No Primary Care Physician [facility] 04-01-2022 09:22-0500 SaO2% (BldA) [Mass fraction] 98 % No Primary Care Physician [facility] 04-01-2022 09:22-0500 Systolic blood pressure 100 mm[Hg] No Primary Care Physician [facility] 03-21-2022 10:08-0500 Body mass index (BMI) [Ratio] 33.7 kg/m2 No Primary Care Physician [facility] 03-21-2022 10:08-0500 Body temperature 98.6 [degF] No Primary Care Physician [facility] 03-21-2022 10:08-0500 Body weight 97.69 kg No Primary Care Physician [facility] 03-21-2022 10:08-0500 Diastolic blood pressure 87 mm[Hg] No Primary Care Physician [facility] 03-21-2022 10:08-0500 Heart rate 57 /min No Primary Care Physician [facility] 03-21-2022 10:08-0500 Respiratory rate 18 /min No Primary Care Physician [facility] 03-21-2022 10:08-0500 SaO2% (BldA) [Mass fraction] 97 % No Primary Care Physician [facility] 03-21-2022 10:08-0500 Systolic blood pressure 138 mm[Hg] No Primary Care Physician [facility] 12-26-2021 15:58-0400 Body height 170.18 cm No Primary Care Physician [facility] Work Phone: 12-26-2021 15:55-0400 Body mass index (BMI) [Ratio] 31.8 kg/m2 No Primary Care Physician [facility] Work Phone: 12-26-2021 15:55-0400 Body temperature 98.7 [degF] No Primary Care Physician [facility] Work Phone: 12-26-2021 15:55-0400 Body weight 92.07 kg No Primary Care Physician [facility] Work Phone: 12-26-2021 15:55-0400 Diastolic blood pressure 81 mm[Hg] No Primary Care Physician [facility] Work Phone: 12-26-2021 15:55-0400 Heart rate 57 /min No Primary Care Physician [facility] Work Phone: 12-26-2021 15:55-0400 Respiratory rate 15 /min No Primary Care Physician [facility] Work Phone: 12-26-2021 15:55-0400 SaO2% (BldA) [Mass fraction] 99 % No Primary Care Physician [facility] Work Phone: 12-26-2021 15:55-0400 Systolic blood pressure 130 mm[Hg] No Primary Care Physician [facility] Work Phone: 10-10-2021 10:44-0400 Body mass index (BMI) [Ratio] 32.4 kg/m2 No Primary Care Physician [facility] Work Phone: 10-10-2021 10:44-0400 Body temperature 97.6 [degF] No Primary Care Physician [facility] Work Phone: 10-10-2021 10:44-0400 Body weight 94.06 kg No Primary Care Physician [facility] Work Phone: 10-10-2021 10:44-0400 Diastolic blood pressure 88 mm[Hg] No Primary Care Physician [facility] Work Phone: 10-10-2021 10:44-0400 Heart rate 64 /min No Primary Care Physician [facility] Work Phone: 10-10-2021 10:44-0400 Respiratory rate 16 /min No Primary Care Physician [facility] Work Phone: 10-10-2021 10:44-0400 SaO2% (BldA) [Mass fraction] 97 % No Primary Care Physician [facility] Work Phone: 10-10-2021 10:44-0400 Systolic blood pressure 136 mm[Hg] No Primary Care Physician [facility] Work Phone: 08-25-2019 08:38-0400 Body mass index (BMI) [Ratio] 33.2 kg/m2 No Primary Care Physician [facility] 08-25-2019 08:38-0400 Body temperature 97.7 [degF] No Primary Care Physician [facility] 08-25-2019 08:38-0400 Body weight 96.16 kg No Primary Care Physician [facility] Work Phone: 08-25-2019 08:38-0400 Diastolic blood pressure 91 mm[Hg] No Primary Care Physician [facility] 08-25-2019 08:38-0400 Heart rate 60 /min No Primary Care Physician [facility] 08-25-2019 08:38-0400 Respiratory rate 16 /min No Primary Care Physician [facility] 08-25-2019 08:38-0400 SaO2% (BldA) [Mass fraction] 96 % No Primary Care Physician [facility] 08-25-2019 08:38-0400 Systolic blood pressure 143 mm[Hg] No Primary Care Physician [facility] 03-07-2017 15:31-0500 BMI (Body Mass Index) 32.71 kg/m2 Enriqueta Campbell [facility] Work Phone: 03-07-2017 15:31-0500 Pulse (Heart Rate) 82 /min Enriqueta Campbell [facility] Work Phone: 03-07-2017 15:31-0500 Respiratory Rate 19 /min Enriqueta Tariqimes [facility] Work Phone: 03-07-2017 15:31-0500 Weight 96.16 kg Enriqueta Tariqimes [facility] Work Phone: 08-18-2015 08:36-0400 BMI (Body Mass Index) 27.34 kg/m2 Enriqueta Tariqimes [facility] Work Phone: 08-18-2015 08:36-0400 Body Temperature 97.9 [degF] Enriqueta Tariqimes [facility] Work Phone: 08-18-2015 08:36-0400 BP Diastolic 81 mm[Hg] Enriqueta Tariqimes [facility] Work Phone: 08-18-2015 08:36-0400 BP Systolic 123 mm[Hg] Enriqueta Tariqimes [facility] Work Phone: 08-18-2015 08:36-0400 BSA (Body Surface Area) 1.93 m2 Enriqueta Tariqimes [facility] Work Phone: 08-18-2015 08:36-0400 Height 171.45 cm Enriqueta [facility] Work Phone: 08-18-2015 08:36-0400 Pulse (Heart Rate) 58 /min Enriqueta Tariqimes [facility] Work Phone: 08-18-2015 08:36-0400 Respiratory Rate 16 /min [facility] Work Phone: 08-18-2015 08:36-0400 Weight 80.55 kg [facility] Work Phone: 08-18-2015 08:36-0400 Weight 80.38 kg [facility] Work Phone: 06-24-2014 08:51-0500 Height 171.45 cm [facility] Work Phone: Encounters Encounter Date Encounter Type Care Provider Facility Start: 03-02-2025 ambulatory Amena Friedman Facility :[facility] Start: 02-09-2025 End: 02-09-[address] Jesus Hogan MD -[facility] Work Phone: Start: 02-09-2025 End: 02-09-[address] Amena Friedman MD Work Phone: -[facility] Start: 02-02-2025 End: 02-02-[address] Jesus Hogan MD -Radiology [facility] Work Phone: Start: 02-02-2025 End: 02-02-2025 ambulatory Jesus Hogan Facility:[facility] Start: 12-23-2024 End: 12-23-[address] Indy Man DC -[facility] Work Phone: Start: 12-23-2024 End: 12-23-[address] Amena Friedman MD Work Phone: -[facility] Start: 12-01-2024 End: 12-01-[address] Indy Man DC -[facility] Work Phone: Start: 12-01-2024 End: 12-01-[address] Amena Friedman MD Work Phone: -[facility] Start: 11-09-2024 End: 11-09-[address] Indy Man DC -[facility] Work Phone: Start: 11-09-2024 End: 11-09-[address] [facility] Start: 10-07-2024 End: 10-07-[address] Indy Man DC -[facility] Work Phone: Start: 10-07-2024 End: 10-07-[address] Amena Friedman MD Work Phone: [facility] Work Phone: Start: 09-21-2024 End: 09-21-[address] Indy Man DC -[facility] Work Phone: Start: 09-21-2024 End: 09-21-[address] Amena Friedman MD Work Phone: [facility] Work Phone: Start: 09-09-2024 End: 09-09-[address] Indy Man DC -[facility] Work Phone: Start: 09-09-2024 End: 09-09-[address] Amena Friedman MD Work Phone: [facility] Work Phone: Start: 09-01-2024 End: 09-01-[address] Indy Man DC -[facility] Work Phone: Start: 09-01-2024 End: 09-01-[address] Amena Friedman MD Work Phone: [facility] Work Phone: Start: 08-27-2024 End: 08-27-[address] Indy Man DC -[facility] Work Phone: Start: 08-27-2024 End: 08-27-2024 ambulatory [facility] Start: 08-19-2024 End: 08-19-[address] Indy Man DC -[facility] Work Phone: Start: 08-19-2024 End: 08-19-2024 ambulatory [facility] Start: 08-12-2024 End: 08-12-[address] Indy Man DC -[facility] Work Phone: Start: 08-12-2024 End: 08-12-2024 ambulatory [facility] Start: 08-04-2024 End: 08-04-2024 ambulatory [facility] Start: 08-04-2024 End: 08-04-[address] Indy Man DC -[facility] Work Phone: Start: 07-28-2024 End: 07-28-[address] Indy Man DC -[facility] Work Phone: Start: 07-28-2024 End: 07-28-2024 ambulatory [facility] Start: 04-27-2024 End: 04-27-2024 ambulatory [facility] Start: 10-24-2022 Non-patient / Non-visit No Primary Care Physician [facility] Start: 10-24-2022 End: 10-24-2022 ambulatory No Primary Care Physician [facility] Work Phone: Start: 10-24-2022 End: 10-24-2022 Patient encounter procedure No Primary Care Physician [facility] Work Phone: Start: 10-24-2022 Registered Recurring No Primar y Care Physician [facility] Start: 10-24-2022 End: 10-24-2022 Patient encounter procedure No Primary Care Physician [facility] Work Phone: Start: 10-16-2022 End: 10-16-2022 Patient encounter procedure No Primary Care Physician [facility] Work Phone: Start: 10-09-2022 End: 10-09-2022 Patient encounter procedure No Primary Care Physician [facility] Work Phone: Start: 09-05-2022 End: 09-05-2022 Patient encounter procedure No Primary Care Physician [facility] Work Phone: Start: 06-26-2022 Non-patient / Non-visit No Primary Care Physician [facility] Start: 06-26-2022 End: 06-26-2022 ambulatory No Primary Care Physician [facility] Work Phone: Start: 06-26-2022 End: 06-26-2022 Patient encounter procedure No Primary Care Physician [facility] Start: 04-27-2022 End: 04-27-2022 Patient encounter procedure No Primary Care Physician [facility] Start: 04-01-2022 End: 04-01-2022 Patient encounter procedure No Primary Care Physician [facility] Start: 03-21-2022 End: 03-21-2022 Patient encounter procedure No Primary Care Physician [facility] [place] Start: 12-26-2021 End: 12-26-2021 Patient encounter procedure No Primary Care Physician [facility] Start: 12-26-2021 Registered Recurring No Primar y Care Physician [facility] Oncology Start: 12-20-2021 End: 12-20-2021 ambulatory No Primary Care Physician [facility] Work Phone: Start: 12-20-2021 End: 12-20-2021 Patient encounter procedure No Primary Care Physician [facility]-Cat Scan, [facility] Start: 10-10-2021 End: 10-10-2021 Patient encounter procedure No Primary Care Physician [facility] Procedures Date Procedure Procedure Detail Performing Clinician [...] 08-18-2015 Magnesium [Mass/volume] in Serum or Plasma [facility] Work Phone: Start: 08-18-2015 End: 08-18-2015 Urate [Mass/volume] in Serum or Plasma Santiago Awad Work Phone: Start: 06-23-2014 End: 06-24-2014 Lactate dehydrogenase [Enzymatic activity/volume] in Serum or Plasma Santiago [facility] Work Phone: Plan of Treatment Date Care Activity Detail Author Start: 03-28-2017 End: 03-28-2017 Appointment Appointment [facility] Work Phone: Start: 03-21-2017 End: 03-21-2017 Appointment Appointment [facility] Work Phone: Start: 03-21-2017 End: 03-21-2017 Follow up Appt 3x/week Follow up Appt 3x/week [facility] Work Phone: Start: 03-12-2017 End: 03-12-2017 Appointment Appointment [facility] Work Phone: Start: 03-12-2017 End: 03-20-2017 Follow up Appt 3x/week Follow up Appt 3x/week [facility] Work Phone: Start: 03-07-2017 End: 03-07-2017 Appointment Appointment [facility] Work Phone: Start: 03-07-2017 End: 03-11-2017 Follow up Appt 3x/week Follow up Appt 3x/week [facility] Work Phone: Start: 01-28-2017 [facility] Start: 08-16-2016 End: 08-18-2015 *CBC with Differential *CBC with Differential [facility] Work Phone: Start: 08-16-2016 End: 08-18-2015 *CMP Complete Metabolic Panel *CMP Complete Metabolic Panel [facility] Work Phone: Start: 08-16-2016 End: 08-18-2015 Lactate dehydrogenase (LDH) *LDH -LDH (Lactate Dehydrogenase) [facility] Work Phone: Start: 08-16-2016 End: 08-18-2015 Urate *Uric Acid Blood [facility] Work Phone: Start: 08-18-2015 End: 02-21-2015 *CBC with Differential *CBC with Differential [facility] Work Phone: Start: 08-18-2015 End: 08-18-2015 *CMP Complete Metabolic Panel *CMP Complete Metabolic Panel [facility] Work Phone: Start: 08-18-2015 End: 08-18-2015 Lactate dehydrogenase (LDH) *LDH -LDH (Lactate Dehydrogenase) [facility] Work Phone: Start: 08-18-2015 End: 08-18-2015 Magnesium *Magnesium [facility] Work Phone: Start: 08-18-2015 End: 08-18-2015 Urate *Uric Acid Blood [facility] Work Phone: Start: 06-23-2014 End: 06-17-2014 *CBC with Differential *CBC with Differential [facility] Work Phone: Start: 06-23-2014 End: 06-24-2014 Lactate dehydrogenase (LDH) *LDH -LDH (Lactate Dehydrogenase) [facility] Work Phone: CT Lumbar spine W contrast IV [facility] Work Phone: CT Lumbar spine W contrast IV [facility] CT Thoracic spine W contrast IV [facility] Work Phone: CT Thoracic spine W contrast IV [facility] MR Brain WO and W contrast IV [facility] Work Phone: MR Brain WO and W contrast IV [facility] MR Lumbar spine WO a nd W contrast IV [facility] Work Phone: MR Lumbar spine WO a nd W contrast IV [facility] MRI of thoracic spin e with contrast [facility] Work Phone: MRI of thoracic spin e with contrast [facility] Patient Education ED Influenza (Adult) [facility] Work Phone: Immunizations Immunization Date Immunization Notes Care Provider [facility] 01-21-2024 influenza, injectabl e, madin cricket canine kidney, preservative free Dr. Amena Friedman MD Work Phone: [facility] 02-20-2022 influenza, injectabl e, quadrivalent, preservative free Dr. Amena Friedman MD Work Phone: [facility] 02-20-2022 influenza, seasonal, injectable No Primary Care Physician [facility] Payers Date Payer Category Payer Unknown [id number] [id number] Self-pay [id number] Unknown [id number] Unknown [employer] [id number] Unknown [employer] [employer] *COLLECT SP* [id number] Unknown [facility] PACKAGE PLAN [id number] Unknown [id number] Unknown [id number] Unknown [id number] Unknown [id number] Unknown [id number] Unknown [id number] Unknown [id number] Unknown [id number] Unknown [id number] Unknown [id number] Unknown [id number] Unknown [id number] Unknown [id number] Unknown [id number] Unknown [id number] Unknown [id number] Social History Date Type Detail Facility Start: 10-10-2021 End: 10-16-2022 Tobacco smoking status [facility] Unknown if ever smoked [facility] Start: 08-17-2020 None [facility] Start: 1960 Sex Assigned At Male [facility] Start: 06-30-2024 End: 06-30-2024 Tobacco smoking status [facility] Ex-smoker (finding) [facility] Sex Male [facility] Goals Date Patient Goal Desired Activity /State Clinical Notes 04-12-2021 to 02-09-2025 Note Date & Type Note Facility 02-09-2025 Progress note [facility] 11-09-2024 Evaluation note Diagnosis Onset [...] dysfunction of lumbar region acute December 23 7:59am Segmental and somatic dysfunction of pelvic region acute December 23 7:59am Segmental and somatic dysfunction of thoracic region acute December 23 7:59am Spinal stenosis of lumbar region chronic December 23 7:59am Hamartoma chronic February 09, 2025 3:46pm History of malignant melanoma chronic February 09 3:46pm [facility] [employer] Work Phone: 1(504) 203-747505-08-2025 Evaluation note* Diagnosis Onset Date Resolution Status Admit Date Segmental and somatic dysfunction of lumbar region acute August 27, 2024 11:50am Segmental and somatic dysfunction of pelvic region acute August 27, 2024 11:50am Segmental and somatic dysfunction of thoracic region acute [facility] 2024 11:50am Spinal stenosis of lumbar region chronic August 27, 2024 11 :50am Back pain acute September 01, 2024 7:55am Segmental and somatic dysfunction of lumbar region acute September 01, 2024 7:55am Segmental and somatic dysfunction of pelvic region acute September 01, 2024 7:55am Segmental and somatic dysfunction of thoracic region acute [facility] 2024 7:55am Spinal stenosis of lumbar region chronic September 01, 2024 7 :55am Radiculopathy of lumbar region acute September 09, 2024 8:19am Segmental and somatic dysfunction of lumbar region acute September 09, 2024 8:19am Segmental and somatic dysfunction of pelvic region acute September 09, 2024 8:19am Segmental and somatic dysfunction of thoracic region acute [facility] 2024 8:19am Spinal stenosis of lumbar region [...] stenosis of lumbar region chronic December 23, 2 025 7:59am [facility] Work Phone: 1(369) 252-761604-15-2025 Evaluation note* Diagnosis Onset Date Resolution Status Admit Date Segmental and somatic dysfunction of lumbar region acute Apr 2024 10:11am Segmental and somatic dysfunction of pelvic region acute Apr 2024 10:11am Segmental and somatic dysfunction of [...] somatic dysfunction of lumbar region acute Mark 2024 3:49pm Segmental and [...] level chron ic December 01, 2024 7:52am [facility] Work Phone: [phone] 732-161804-08-2025 Evaluation note* Diagnosis Onset Date Resolution Status [...] region acu te September 01, 2024 7:55am [facility] Work Phone: 1([phone]) 279-517104-08-2025 Evaluation note* Diagnosis Onset Date Resolution Status [...] thoracic region acute M ay 2024 8:19am [facility] Work Phone: 1(704) 694-315504-08-2025 Evaluation note* Diagnosis Onset Date Resolution Status [...] region chr onic September 21, 2024 3:49pm [facility] Work Phone: 1(506) 785-828204-08-2025 Evaluation note* Diagnosis Onset Date Resolution Status [...] region chr onic October 07, 2024 9:22am [facility] Work Phone: 1([phone]) 470-611804-08-2025 Evaluation note* Diagnosis Onset Date Resolution Status [...] level chron ic November 09, 2024 3:41pm [facility] [employer] Work Phone: 1([phone]) 162-544012-22-2021 NotePatient Outreach (NETNAV) DANIELLE CHRISTY ([id number]) 1960 M Date Time Provider Department 04/12/21 [...] Outcome/Action Unable to reach patient: Left message [employer] message sent Reason for Outreach Attribution: Provider Off-boarding Payer: Payor: [employer] / Plan: [employer] / Product Type: Other / Care Gap [...] future healthcare decisions with a power of litigation attorney, living will, or advance directives? No. Please bring a copy to your next appointment or email to Referrals: N/A Message Sent to Practice: NO Navigation Signature: Fany Leon Population Health Navigator April 12, 2021 9:49 AM Allergies As of Date: 04/12/2021 (No Known Allergies) Date Reviewed: 05/11/2016 Reviewed by: Sowmya Bower Supervisor Coil Winding - Fully Assessed Reason for Visit: Population [...] EDWARD POPULATION HEALTH NAVIGATOR, FANY Ceja on 04/12/21[facility]12-22-2021 NoteHNO ID: [id number] Author: Fany Leon Population Health Navigcarol Service: ? Author Type: ? Type: Progress Notes Filed: 04/12/2021 9:50 AM Note Text: POPULATION HEALTH NAVIGATION OUTREACH Action/FYI I left a message and a my chart message re: pcp No care everywhere Contact made with patient or family member? NO Pt identified by name and : NO Outreach Outcome/Action Unable to reach patient: Left message [employer] message sent Reason for Outreach Attribution: Provider Off-boarding Payer: Payor: [employer] / Plan: [employer] / Product Type: Other / Care Gap [...] future healthcare decisions with a power of litigation attorney, living will, or advance directives? No. Please bring a copy to your next appointment or email to Referrals: N/A Message Sent to Practice: NO Navigation Signature: Fany Leon Population Health Navigator April 12, 2021 9:[facility] Diagnosis Onset Date Resolution Status Asthma chronic Left upper lobe pulmonary nodule chronic Pain in right leg acute Spinal stenosis at L4-L5 level chronic Hamartoma chronic History of malignant melanoma chronic [facility] Work Phone: Evaluation note* Diagnosis Onset Date Resolution Status Encounter to establish care acute Essential hypertension acute Asthma chronic History of gastroesophageal reflux (GERD) chronic Tobacco abuse chronic Influenza A acute 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) acute [facility] Work Phone: Evaluation note* Diagnosis Onset [...] acute Spinal stenosis at L4-L5 level chronic [facility] Work Phone: Progress note Author Jesus Hogan [facility] Note Date/Time February 09, 2025 5 :19pm [facility] [place] [address] OFFICE VISIT Date of Service: 02/09/25 1559 MR#: [id number] Acct: [id number] Name: JAELYNDANIELLE SALAMANCA Rep #: [id number] : 1960 From: Jesus Hogan MD Age/Sex: 64/M [place] [facility] [place] Status: Signed HPI Subjective Date of Service 02/09/25 Chief Complaint F/u for Melanoma and L lung nodule. History of Present Illness 64y.o.man was diagnosed with Melanoma Right lower leg, had excision on 01/03/2011then wide excision with right groin sentinel node dissection on 02/05/2011 for stage IIIA([id number]) disease. Lymph node dissection was done on [...] spine, mild stenosis at L4/5. He elected topursue Chiropractor help. He is on observation for [...] observation. Comes for follow up. Feels well. PFSH Medical History H/O Malignant melanoma Pancreatitis [...] 90 mcg-budesonide 80 2 inh inhalation TID CO N shortness 01/01/25 02/09/25 Rx mcg/actuation HFA aerosol [...] Plan Details Follow Up: 12 Months 02/09/25 4899 <Electronically signed by Jesus Quarles> Date _ Jesus Hogan MD Cosigner Signature: Date (if applicable) CC: Dr. Amena Friedman MD ~ [facility] Work Phone: Reason for referral (narrative)No reason for referral information availableSon[facility] Work Phone: Summary Purpose Family History No Family History Records Found Relationship Condition Age at Onset Recorded Date/T [...] CHEST PAIN Reason for Visit [facility] Essential hypertension Asthma History of gastroesophageal reflux [...] section and content) DATE CREATED AUTHOR 05/19/2021 [facility] DATE CREATED AUTHOR AUTHOR'S ORGANIZ ATION 03/04/2025 [facility] Care Teams (unrecognized sec tion and [...] Primary Care Provider, Referri ng Provider Active DAX Cormier Attending Provider Active Team Status: Inactive Member Role Status Dates Dr. Amena Friedman MD Primary Care Provider, Referri ng Provider Active Jerman VERDUZCO PA Attending Provider Active Team Status: Active [...] Referring Provider Active Jigna De La Rosa TRAFFIC LINE PAINTER, TRAFFIC LINE PAINTER-C Attending Provider Active Dr. Amena Friedman MD [...] Provider, Famil y Provider Active Dr. Jesus Hoagn MD Attending Provider, Referring Pro vider Active [...] Status: Active Member Role/Relationship Status Dates Dr. Aemna Friedman MD Primary Care Provider Active Team [...] BE BASED ON THE PRIMARY CLINICAL RECORDS. [employer] provides no warranty or guarantee of the accuracy or completeness of information in this document.
== END 2025-03-22 19:21 | disposition home or self-care (01) ==
PROVIDERS: Emergency Provider Emergency Medicine; PCP Internal Medicine; Visit Provider Emergency Medicine
DX: S40.011A Contusion of right shoulder, initial encounter (principal); S20.211A Contusion of right front wall of thorax, initial encounter; W55.12XA Struck by horse, initial encounter; I10 Essential (primary) hypertension; K21.9 Gastro-esophageal reflux disease without esophagitis; M48.061 Spinal stenosis, lumbar region without neurogenic claudication; Z87.891 Personal history of nicotine dependence; Z79.899 Other long term (current) drug therapy
CPT/HCPCS: 71101; 73010; 99282